=== PATIENT | female | born 1940 | race Caucasian/White ===

== ENCOUNTER 2016-09-09 15:48 | Inpatient (IN) ==
[2016-09-09] MEDS ORDERED: predniSONE 20 MG TABLET PO ONE (15:58)
[2016-09-09] MEDS ORDERED: 0.9 % Sodium Chloride 1,000 ML IVC ONE ×2 (15:58→17:51)
[2016-09-09] MEDS ORDERED: Ipratropium/Albuterol Neb 3 ML IH ONE (15:58)
--- NOTE | 2016-09-09 15:58 | Emergency Department Note ---
Disposition Clinical Impression: CHLOE (acute kidney injury), Dehydration, COPD exacerbation Hypotension Qualifiers: Hypotension type: other hypotension type Qualified Code(s): I95.89 - Other hypotension Syncope Qualifiers: Syncope type: unspecified Qualified Code(s): R55 - Syncope and collapse Disposition: Admitted As Inpatient Condition: Fair Time of Disposition: 18:27 General Adult HPI - General Chief complaint: ED Shortness of Breath/Dyspnea Stated complaint: difficulty in breathing and BM in pants Time Seen by Provider: 09/09/16 15:51 Source: patient, EMS Mode of arrival: EMS Limitations: no limitations Nursing Notes Reviewed: Yes Vital Signs Reviewed: Yes - History of Present Illness HPI Narrative: 76-year-old female with a history of hypertension, hyperlipidemia, COPD presents to the ED via EMS for shortness of breath and lightheadedness. EMS reports she was sent here with concerns of her family for dehydration and syncope. Patient reports over last 4 days she has been increasingly more short of breath with a cough. She reports she has been without her inhalers for several weeks now. She denies any fevers, rhinorrhea, or chest pain. She reports an episode of lightheadedness that occurred earlier today while sitting at the dining table with her daughter she was lightheaded and felt like passing out while sitting. She notified her daughter that she felt like passing out. She reportedly passed out and had a bowel movement. No obvious signs of trauma, head contusion, or tongue laceration. She is unsure of how long she was out for but this was witnessed by her daughter who is unfortunately not at bedside at this time. She denies hitting her head, any headache, any shortness of breath or chest pain prior to this. Denies any history of seizures. Denies any cardiac ischemic disease. She reports multiple episodes of diarrhea over the past several days as well as decreased appetite. Patient lives at home with daughter and reports no one else with similar symptoms. Recent stress test was negative last year she reports. Denies any history of congestive heart failure. Denies any recent hospitalizations or antibiotics. Denies any recent long-distance travel or camping. Denies any urinary symptoms. She is a pack per day smoker and stopped 2 days ago she reports. Pain Scale: 0 - Related Data Home Medications Medication Instructions Recorded Confirmed Aspirin 81 mg PO DAILY 02/08/15 09/09/16 Atorvastatin [Lipitor] 10 mg PO HS 02/08/15 09/09/16 Docusate [Colace] 100 mg PO DAILY PRN 02/08/15 09/09/16 Nitroglycerin 0.4 mg SL Q5MIN PRN 02/08/15 09/09/16 Budesonide/Formoterol 160/4.5 2 puff IH BIDR 02/11/15 09/09/16 [Symbicort 160/4.5] Citalopram [CeleXA] 20 mg PO DAILY 09/09/16 09/09/16 Diclofenac Sodium [Voltaren] 1 appl TP TID PRN 09/09/16 09/09/16 Gabapentin [Neurontin] 300 mg PO TID 09/09/16 09/09/16 HYDROcodone/Acet 5/325 mg [[place] 1 tab PO Q6H PRN 09/09/16 09/09/16 5-325 mg] HydrOXYzine Pamoate [Vistaril] 50 mg PO Q6H PRN 09/09/16 09/09/16 OLANZapine [Zyprexa] 5 mg PO BID 09/09/16 09/09/16 Previous Rx's Medication Instructions Recorded Lisinopril-HCTZ 10-12.5 [Prinzide 1 each PO DAILY #30 tablet 03/09/16 10-12.5] Albuterol Sulfate [Albuterol 2 puff IH Q4HR PRN #1 hfa.aer.ad 04/17/16 Inhaler] Allergies Allergy/AdvReac Type Severity Reaction Status Date / Time codeine Allergy UNKNOWN Verified 03/29/16 15:48 REACTION Penicillins Allergy UNKNOWN Verified 03/29/16 15:48 REACTION All systems ED: reviewed and negative except as stated. Constitutional: Denies: fever Cardiovascular: Denies: chest pain Respiratory: Reports: cough, dyspnea. Denies: wheezes, hemoptysis Gastrointestinal: Reports: diarrhea. Denies: abdominal pain, nausea, vomiting, melena, hematochezia Genitourinary: Denies: urgency, dysuria Integumentary: Denies: rash, abrasion Neurological: Denies: headache, confusion Past Medical History - Past Medical History Attestation: Yes The following information was validated with the patient. Source: patient Medical history: Reports: COPD, hyperlipidemia, hypertension, other Surgical history: Reports: breast surgery, , cholecystectomy, hip replacement, hysterectomy, knee replacement, other Psychiatric history: Reports: depression - Social History Smoking Status: Current every day smoker Smokeless Tobacco Status: No Alcohol use: Reports: none Drug use: Reports: none Physical Exam - General Limitations: no limitations General appearance: alert, in no apparent distress - Head Head exam: atraumatic, normocephalic, normal inspection - Eye Eye exam: Present: normal appearance, PERRL, EOMI - ENT ENT exam: normal exam, normal oropharynx, mucous membranes dry - Neck Neck exam: Present: normal inspection, full ROM, trachea midline - Chest Chest inspection: Present: normal inspection, symmetric chest wall rise - Respiratory Respiratory exam: Present: wheezes, other (coarse breath sounds bilaterall) - Cardiovascular Cardiovascular exam: Present: regular rate, normal rhythm, normal heart sounds. Absent: systolic murmur, diastolic murmur - Abdominal Exam Abdominal exam: Present: soft, Non-Tender, normal bowel sounds. Absent: tenderness, distention, guarding, rebound, rigidity - Extremities Exam Extremities exam: Present: normal inspection, full ROM, normal capillary refill. Absent: tenderness, pedal edema, calf tenderness - Back Exam Back exam: Present: normal inspection, full ROM. Absent: tenderness - Neurological Exam Neurological exam: Present: alert, oriented X3, CN II-XII intact - Expanded Neurological Exam Patient oriented to: Present: person, place, time Speech: Present: fluid speech Cranial nerves: EOM function (II, III, IV, ): Normal, facial sensation (V): Normal, facial palsy (VII): Normal, gag reflex (IX): Normal, spinal accessory function (XI): Normal, tongue deviation (XII): Normal Motor strength - LUE: 5/5 Motor strength - RUE: 5/5 Motor strength - LLE: 5/5 Motor strength - RLE: 5/5 Upper motor neuron exam: grace neglect: Absent bilaterally, pronator drift: Absent bilaterally Sensory exam upper extremity: light touch: Normal Sensory exam lower extremity: light touch: Normal - Psychiatric Psychiatric exam: Present: normal affect, normal mood - Skin Skin exam: Present: warm, dry, intact, normal color Course Course Narrative: 76-year-old female history of COPD presents to ED for syncope. She reportedly had a syncopal episode while at home. At that time she also had episode fecal incontinence. She has been having multiple episodes of diarrhea for the past several days. Came in for concern of dehydration. She is also reporting some dyspnea and reports being without her inhalers for past several days. Patient is stable and appears in no acute distress. No obvious signs of trauma, no tongue lacerations or head contusion/hematoma. Her blood pressure is 93/77 and HR 70s. She is 91% on room air on arrival. She is alert and oriented to person place and time. Lungs are diffusely wheezing bilaterally. Neurologic examination is normal without any focal neural deficits. She denies any history of cardiac ischemic disease. No history of congestive heart failure. Syncopal workup initiated. Will culture her stool and check a urine as well. EKG shows normal sinus rhythm without any acute ischemic changes. - Reevaluation(s) Reevaluation #1: Labs reviewed and discussed. Her creatinine is elevated 1.6 this is above her baseline but she has been elevated in the past. Her troponin is negative. Blood glucose is over 100. Her initial blood pressure read 93/77. With her 1st fluid bolus her pressures are in the upper 70s to lower 80s. The IV was kinked due to position but with a pressure bag fluids are flowing much better. She denies any recurrence of symptoms at this time such as lightheadedness or chest pain. Her HR remains in the 70s but her labs indicate that she may be intravascularly dehydrated which may explain her symptoms. Her breathing has improved with breathing treatments and steroids. Abdomen is soft nontender and nondistended. C diff is negative. Will get order a 2nd liter of fluids and likely admit for her syncopal episode, hypotension, CHLOE, dehydration with COPD exacerbation. Patient is in agreement with plan. Time: 18:00 Reevaluation #2: Blood pressure remains stable with 2nd liter of fluid BP is 109/57. She is stable for admission to floor. Time: 18:50 - Consultations Consultation #1: Spoke with paula Pryor to admit for hypotension, CHLOE, dehydration, COPD exacerbation, and syncope. Blood pressure has improved with 2nd liter of fluid 106/51. Time: 18:27 Vital Signs Temperature 97.7 F 09/09/16 15:50 Pulse Rate 73 09/09/16 15:50 Respiratory Rate 18 09/09/16 15:50 Blood Pressure 93/77 09/09/16 15:50 O2 Sat by Pulse Oximetry 91 L 09/09/16 15:50 Temperature 97.7 F 09/09/16 15:50 Pulse Rate 70 09/09/16 18:04 Respiratory Rate 18 09/09/16 18:47 Blood Pressure 109/57 09/09/16 18:47 O2 Sat by Pulse Oximetry 99 09/09/16 18:04 Oxygen Delivery Oxygen Delivery Room Air Medical Decision Making - MDM Narrative Medical decision making narrative: I examined this patient and my medical decision-making was reviewed with the SUPERVISOR METALIZING/PA/Advanced Practice Nurse/Resident Physician. I agree with the documented findings, disposition and treatment plan as described except to the extent set forth below. Patient was seen and evaluated on arrival by Dr. samano and myself, I agree with his evaluation and management plan, supervised care the patient's stay. Patient comes in today complaining of dyspnea. She has been out of her medications for COPD. She has also had a bowel movement here. She said she has a little bit of diarrhea and dehydrated. She will get reading treatments, workup, and will send stool for C. difficile. She is in agreement with this plan. Most likely she will need admission. 1800 hrs.: Patient's labs are back. Her blood pressures improved after 2 L of fluid current systolic is 105. Return bring her into the hospital. Hospitalist is in agreement patient is agreeable with plan. - Medical Records Medical records reviewed: Yes I reviewed the patient's medical records. - Lab Data Lab results reviewed: Yes I reviewed the patient's lab results. Result diagrams: 09/09/16 16:30 09/09/16 16:30 Lab Results 09/09/16 09/09/16 09/09/16 Range/Units 16:13 16:30 16:30 WBC 8.9 (4.3-11.1) K/mcL RBC 5.56 H (3.82-4.97) M/mcL Hgb 16.8 H (11.5-15.4) g/dL Hct 50.4 H (35.3-44.9) % MCV 90.6 (83.0-100.0) fL MCH 30.2 (28.0-33.3) pg MCHC 33.3 (31.6-35.5) g/dL RDW 11.9 (11.5-14.5) % Plt Count 182 (140-400) K/mcL MPV 9.6 (9.4-12.4) fL Immature Gran % 0.4 (0-4) % Seg Neutrophils % 62.2 % Lymphocytes % 26.4 % Monocytes % 8.8 % Eosinophils % 1.6 % Basophils % 0.6 % Neutrophils # 5.6 (1.6-8.9) K/mcL Lymphocytes # 2.4 (0.6-4.6) K/mcL Monocytes # 0.8 (0.0-1.3) K/mcL Eosinophils # 0.1 (0.0-0.6) K/mcL Basophils # 0.1 (0.0-0.2) K/mcL Sodium 140 (136-145) mEq/L Potassium 4.1 (3.5-4.5) mEq/L Chloride 104 (98-109) mEq/L Carbon Dioxide 22 (19-29) mEq/L BUN 25 H (7-20) mg/dL Creatinine 1.64 H (0.57-1.11) mg/dL Est GFR ( Amer) 37 L (> 60) Est GFR (Non-Af Amer) 31 L (> 60) BUN/Creatinine Ratio 15 (6-26) Glucose 109 H (70-99) mg/dL Calculated Osmolality 295 (280-300) Calcium 9.2 (8.6-10.8) mg/dL Troponin I (0-0.03) ng/mL B-Natriuretic Peptide (0-100) pg/mL Stl C. diff Tox B Gene Negative (Negative) 09/09/16 09/09/16 Range/Units 16:30 16:30 WBC (4.3-11.1) K/mcL RBC (3.82-4.97) M/mcL Hgb (11.5-15.4) g/dL Hct (35.3-44.9) % MCV (83.0-100.0) fL MCH (28.0-33.3) pg MCHC (31.6-35.5) g/dL RDW (11.5-14.5) % Plt Count (140-400) K/mcL MPV (9.4-12.4) fL Immature Gran % (0-4) % Seg Neutrophils % % Lymphocytes % % Monocytes % % Eosinophils % % Basophils % % Neutrophils # (1.6-8.9) K/mcL Lymphocytes # (0.6-4.6) K/mcL Monocytes # (0.0-1.3) K/mcL Eosinophils # (0.0-0.6) K/mcL Basophils # (0.0-0.2) K/mcL Sodium (136-145) mEq/L Potassium (3.5-4.5) mEq/L Chloride (98-109) mEq/L Carbon Dioxide (19-29) mEq/L BUN (7-20) mg/dL Creatinine (0.57-1.11) mg/dL Est GFR ( Amer) (> 60) Est GFR (Non-Af Amer) (> 60) BUN/Creatinine Ratio (6-26) Glucose (70-99) mg/dL Calculated Osmolality (280-300) Calcium (8.6-10.8) mg/dL Troponin I 0.01 (0-0.03) ng/mL B-Natriuretic Peptide < 10 (0-100) pg/mL Stl C. diff Tox B Gene (Negative) - Radiology Data Radiology results reviewed: Yes I reviewed the patient's radiology results. Chest X-Ray 09/09/16 15:58 IMPRESSION: Stable chest. D/ / Javy Florez MD / Javy Florez MD Interpreting Provider: Javy Florez MD - EKG Data EKG #1 EKG attestation: Yes I reviewed and interpreted this EKG. EKG results narrative: EKG performed 1553 normal sinus rhythm 66 bpm, poor R-R wave progression, normal axis, there are no ST elevations or depressions, no T-wave inversions. Intervals are within normal limits [place] interval 191 QRS 90 QT QTC 386 399. No delta wave, LVH, or B[place] pattern, Compared to old EKG performed 07/08/2016 shows normal sinus rhythm with similar EKG findings. No acute ischemic changes.
[2016-09-09 16:41] LABS: Basophils # 0.1 K/mcL (0.0-0.2); Basophils % 0.6 %; Eosinophils # 0.1 K/mcL (0.0-0.6); Eosinophils % 1.6 %; Hematocrit 50.4 % (35.3-44.9); Hemoglobin 16.8 g/dL (11.5-15.4); Immature Granulocytes % 0.4 % (0-4); Lymphocytes # 2.4 K/mcL (0.6-4.6); Lymphocytes % 26.4 %; Mean Corpuscular HGB Conc 33.3 g/dL (31.6-35.5); Mean Corpuscular Hemoglobin 30.2 pg (28.0-33.3); Mean Corpuscular Volume 90.6 fL (83.0-100.0); Mean Platelet Volume 9.6 fL (9.4-12.4); Monocytes # 0.8 K/mcL (0.0-1.3); Monocytes % 8.8 %; Neutrophils # 5.6 K/mcL (1.6-8.9); Platelet Count 182 K/mcL (140-400); Red Blood Count 5.56 M/mcL (3.82-4.97); Red Cell Distribution Width 11.9 % (11.5-14.5); Segmented Neutrophils % 62.2 %
[2016-09-09 16:53] LABS: Calcium 9.2 mg/dL (8.6-10.8); Potassium 4.1 mEq/L (3.5-4.5)
--- NOTE | 2016-09-09 21:37 | Internal Med History&Physical ---
<Shahram Aparicio - Last Filed: 09/10/16 02:24> Date of Encounter: 09/09/16 Time of Encounter: 21:20 Assessment and Plan (1) COPD (chronic obstructive pulmonary disease) Current visit: No Status: Chronic Patient has history of COPD, chest x-ray shows streaky opacification left lower lobe, without acute process. Suspicious for intrathoracic process that might be more evident after fluid repletion. Rales and rhonchi with diffuse wheezing auscultated on exam. 40 mg by mouth prednisone Scheduled to home when necessary albuterol Patient on empiric Levaquin Obtain sputum culture Continue home Symbicort We will obtain chest x-ray in the morning Urine and shins for Streptococcus pneumoniae and legionella Qualifiers: COPD type: unspecified COPD Qualified Code(s): J44.9 - Chronic obstructive pulmonary disease, unspecified (2) Urinary tract infection Current visit: No Status: Suspected Suspect patient has urinary tract infection given patient's prior history of identical symptoms after having pansensitive Escherichia coli UTI. Bilateral carotids performed in 02/03 showed minimal stenotic plaque, echo performed 02/03 showed EF of 65-70% with mild left ventricular diastolic dysfunction. We will obtain urinalysis with urine culture We will obtain CT head/brain without contrast Previous cultures pansensitive Escherichia coli, will start Levaquin Qualifiers: Urinary tract infection type: site unspecified Hematuria presence: without hematuria Qualified Code(s): N39.0 - Urinary tract infection, site not specified (3) Syncope Current visit: No Status: Acute Patient had a witnessed syncopal event at home earlier today. Patient reports is that occurred after several days of not taking much oral intake. Prior documented episodes of syncope with hospitalization last February due to similar events. He was due to UTI causing weakness, anorexia, dehydration. Suspect this is the root of current episode. Plan as above Qualifiers: Syncope type: unspecified Qualified Code(s): R55 - Syncope and collapse (4) Acute kidney injury Current visit: No Status: Acute Patient acute kidney injury likely due to dehydration and anorexia, reportedly for several days prior to presentation. Patient received 3 L normal saline in the ER Plan as above (5) Hypotension Current visit: Yes Status: Acute Likely secondary to patient anorexia and dehydration. Resolved after 3 L bolus normal saline. Plan as above Review vitals regularly Qualifiers: Hypotension type: other hypotension type Qualified Code(s): I95.89 - Other hypotension (6) Dehydration Current visit: No Status: Acute Due to decreased by mouth intake over the last few days Plan as above (7) DVT prophylaxis Current visit: No Status: Acute 5000 units heparin subcutaneous 3 times a day Internal Medicine - H&P: HPI Chief complaint: Syncope and anorexia Admitted From: Home Plans for Post Hospital Care: Home History of present illness: Ms. Cobos is a 76 year old female prior medical history of hypertension, hyperlipidemia, COPD, chronic delusional psychosis, diastolic dysfunction, and osteoarthritis who was brought to [place] by her family after having a witnessed syncopal event earlier today. She states she was sitting at the table when her syncopal event occurred. It was witnessed by her daughter, who is not present for the conversation, but the patient denies seizure-like activity at that time as well as post ictal state. She reports that for last 4 days she has had increased shortness of breath and nonproductive cough. In the same time. She reports that she has some diarrhea, anorexia, lightheadedness, chills, weakness , reports she has had increased urination, but denies dysuria, denies hematuria , reports some nausea without vomiting, and diarrhea. She denies constipation, wheezing, and vomiting. A presentation to the emergency room she is found to have acute kidney injury with serum creatinine 1.64 as well as hypotension in the 80s over 60s. She was given 3 L normal saline prior to reaching the floor. Review of patient's chart she has had similar episode documented in 03/06. In which she had a UTI, syncopal event, Hypotension, and AK I. Past Med Surg Social Fam HX - Past Medical History Medical history: COPD, hyperlipidemia, hypertension, other Psychiatric history: depression - Past Surgical History Surgical History: breast surgery, , cholecystectomy, hip replacement, hysterectomy, knee replacement, other - Social History Smoking Status: Current every day smoker Smokeless Tobacco Status: No Alcohol use: none Drug use: none - Family History Mother Name: adan negrete Age: 78 Living Status: Hx Family Cardiac Disorders: No Hx Family Respiratory Disorders: Yes Hx Family Cancer: No Hx Family GI Disorders: No Hx Family Endocrine Disorder: No Hx Family Neuromuscular Disorders: No Hx Family Neurologic Disorders: No Hx Family HEENT Disorders: No Hx Family Autoimmune Disorders: No Internal Medicine - H&P: Meds Aspirin 81 mg PO DAILY 02/08/15 [History] Atorvastatin [Lipitor] 10 mg PO HS 02/08/15 [History] Docusate [Colace] 100 mg PO DAILY PRN 02/08/15 [History] Nitroglycerin 0.4 mg SL Q5MIN PRN 02/08/15 [History] Budesonide/Formoterol 160/4.5 [Symbicort 160/4.5] 2 puff IH BIDR 02/11/15 [ History] Lisinopril-HCTZ 10-12.5 [Prinzide 10-12.5] 1 each PO DAILY #30 tablet 03/09/16 [ Rx] Albuterol Sulfate [Albuterol Inhaler] 2 puff IH Q4HR PRN #1 hfa.aer.ad 04/17/16 [Rx] Citalopram [CeleXA] 20 mg PO DAILY 09/09/16 [History] Diclofenac Sodium [Voltaren] 1 appl TP TID PRN 09/09/16 [History] Gabapentin [Neurontin] 300 mg PO TID 09/09/16 [History] HYDROcodone/Acet 5/325 mg [[place] 5-325 mg] 1 tab PO Q6H PRN 09/09/16 [History] HydrOXYzine Pamoate [Vistaril] 50 mg PO Q6H PRN 09/09/16 [History] OLANZapine [Zyprexa] 5 mg PO BID 09/09/16 [History] Allergies codeine Allergy (Verified 03/29/16 15:48) UNKNOWN REACTION Penicillins Allergy (Verified 03/29/16 15:48) UNKNOWN REACTION - Constitutional Constitutional: anorexia, chills, weakness, no fever(s), no falls - EENT Eyes: no change in vision, no discharge, no pain, no photophobia Nose, mouth and throat: no dysphagia, no nasal discharge, no neck pain, no sore throat - Cardiovascular Cardiovascular ROS IM: no chest pain, no diaphoresis, no dyspnea, no lightheadedness, no palpitations, no syncope - Respiratory Respiratory: as per HPI, cough, dyspnea, no wheezing, no pain on inspiration, no excessive phlegm production, no change in phlegm color, no pain with cough - Gastrointestinal Gastrointestinal: diarrhea, no abdominal pain, no constipation, no hematemesis, no hematochezia, no melena, no nausea, no vomiting - Genitourinary Genitourinary: urinary frequency, no change in urinary stream, no dysuria, no flank pain, no hematuria - Musculoskeletal Musculoskeletal ROS IM: no numbness, no tingling - Integumentary Integumentary IM: no rash, no jaundice - Neurological Neurological ROS: headache(s), weakness, no confusion, no convulsions, no focal weakness, no numbness, no tingling, no tremor(s) - Constitutional Vitals: Temp Pulse Resp BP Pulse Ox 98.4 F 75 14 118/56 98 09/09/16 19:39 09/09/16 20:46 09/09/16 20:46 09/09/16 19:39 09/09/16 20:46 Exam: General: Cooperative, pleasant, no acute distress, alert and oriented 2 ( person and place), answers questions appropriately Head: Normocephalic, atraumatic Eye: Conjunctiva pink, sclera anicteric, EOMI, PERRL Neck: Supple, trachea midline Respiratory: No accessory muscle usage, bilateral wheezes, bilateral rails L>R, rhonchi in left lower lobe Cardiovascular: Regular rate and rhythm, S1 and S2 present, no murmurs/rubs/ gallops/clicks appreciated GI/abdominal: Nondistended, nontender, soft, normal bowel sounds, no peritoneal signs Extremities: No calf tenderness, noncyanotic, no pedal edema appreciated, warm, lower extremity pulses palpable and symmetrical Neurological: Alert and oriented 2 (person and place), no facial droop, no focal deficits Skin: Dry, intact, normal color Internal Med - H&P Results - Labs CBC & Chem 7: 09/09/16 16:30 09/09/16 16:30 <Ranulfo Loco - Last Filed: 09/10/16 02:30> Internal Medicine - H&P: HPI History of present illness: Ms. Cobos is a 76 year old female All Systems PM: A 10-system review of systems was performed and is negative for pertinent findings except as documented above in the HPI. - Constitutional Vitals: Temp Pulse Resp BP Pulse Ox 98.3 F 75 16 122/68 96 09/10/16 00:08 09/10/16 00:08 09/10/16 00:08 09/10/16 00:08 09/10/16 00:08 Internal Med - H&P Results - Labs CBC & Chem 7: 09/09/16 16:30 09/09/16 16:30 - Attending Attestation I examined this patient and my medical decision-making was reviewed with the PROCESS PLANNER/PA/Advanced Practice Nurse/Resident Physician. I agree with the documented findings, disposition and treatment plan as described except to the extent set forth below. I discussed the patient with the medical planner Dr. Shahram Aparicio. I examined the patient independently. I agree with the physical examination findings, assessment and plan as documented by Dr. Aparicio. Free, patient with COPD admitted with syncopal episode. Likely secondary to dehydration. Possible UTI. Continue current management, telemetry monitoring.
[2016-09-09] MEDS ORDERED: Naloxone 0.4 MG/ML INJ IVP PRN (21:42)
[2016-09-09] MEDS ORDERED: Acetaminophen 325 MG TABLET PO PRN (21:42)
[2016-09-09] MEDS ORDERED: Nicotine 14 MG PATCH.TD24 TD PRN (21:42)
[2016-09-09] MEDS ORDERED: Ondansetron 4 MG/2 ML VIAL IVP PRN (21:42)
[2016-09-09] MEDS ORDERED: hydrOXYzine pamoate 25 MG CAPSULE PO PRN (21:50)
[2016-09-09] MEDS ORDERED: *HR* HYDROcodone/Acet 5/325 mg TABLET PO PRN (21:50)
[2016-09-09] MEDS ORDERED: Nitroglycerin 0.4 MG TAB.SUBL SL PRN (21:50)
[2016-09-09] MEDS ORDERED: Levofloxacin 500 MG/100 ML 500 MG/100 ML BAG IVPB SCH (22:00)
[2016-09-09] MEDS: *HR* Heparin 5,000 UNIT/ML VIAL SQ SCH (22:43)
[2016-09-09] MEDS: 0.9 % Sodium Chloride 1,000 ML IVC SCH (22:43)
[2016-09-09] MEDS: Ipratropium/Albuterol Neb 3 ML IH SCH (23:35)
[2016-09-09] MEDS: Budesonide/Formoterol 160/4.5 MDI IH SCH (23:37)
[2016-09-10 02:42] LABS: Bilirubin,Urine Negative (Negative); Blood,Urine Negative (Negative); Clarity,Urine Clear (Clear); Color,Urine Yellow (Yellow); Glucose,Urine (UA) 250 mg/dL (Normal); Ketones,Urine Negative (Negative); Leukocyte Esterase,Urine Trace (Negative); Nitrite,Urine Positive (Negative); PH,Urine 5.5 pH Units (5.0-8.0); Protein,Urine Trace mg/dL (Neg-Trace); Urobilinogen,Urine Normal (Normal)
[2016-09-10 02:46] LABS: Bacteria,Urine Moderate per hpf (None-Few); Hyaline Casts,Urine None Seen per lpf (None-Few); Squamous Epithelial Cell,Urine Many per lpf (None-Few); WBC,Urine 0-3 per hpf (0-3)
[2016-09-10] MEDS: Ipratropium/Albuterol Neb 3 ML IH SCH ×4 (04:19→23:00)
[2016-09-10] MEDS: *HR* Heparin 5,000 UNIT/ML VIAL SQ SCH ×3 (06:15→22:39)
[2016-09-10 06:17] LABS: Basophils % 0.2 %; Hemoglobin 15.6 g/dL (11.5-15.4); Immature Granulocytes % 1.2 % (0-4); Lymphocytes # 0.9 K/mcL (0.6-4.6); Lymphocytes % 13.9 %; Mean Corpuscular HGB Conc 32.5 g/dL (31.6-35.5); Mean Corpuscular Hemoglobin 29.7 pg (28.0-33.3); Mean Corpuscular Volume 91.4 fL (83.0-100.0); Mean Platelet Volume 9.9 fL (9.4-12.4); Monocytes # 0.3 K/mcL (0.0-1.3); Monocytes % 4.7 %; Neutrophils # 5.1 K/mcL (1.6-8.9); Platelet Count 147 K/mcL (140-400); Red Blood Count 5.25 M/mcL (3.82-4.97); Red Cell Distribution Width 11.8 % (11.5-14.5)
[2016-09-10 06:37] LABS: Albumin/Globulin Ratio 0.9 (1.1-2.2); Bilirubin,Total 0.6 mg/dL (0.2-1.2); Calcium 8.4 mg/dL (8.6-10.8); Globulin 3.4 g/dL (2.4-3.5); Magnesium 1.6 mg/dL (1.6-2.6); Phosphorous 2.9 mg/dL (2.3-4.7); Potassium 4.3 mEq/L (3.5-4.5); Total Protein 6.4 g/dL (6.0-8.3)
[2016-09-10] MEDS: Aspirin 81 MG TAB.CHEW PO SCH (09:08)
[2016-09-10] MEDS: OLANZapine 5 MG TAB.RAPDIS PO SCH ×2 (09:08→22:39)
[2016-09-10] MEDS: predniSONE 20 MG TABLET PO SCH (09:08)
[2016-09-10] MEDS: Pantoprazole 40 MG VIAL IVP SCH (09:08)
[2016-09-10] MEDS: Budesonide/Formoterol 160/4.5 MDI IH SCH ×2 (11:41→23:00)
[2016-09-10] MEDS: 0.9 % Sodium Chloride 1,000 ML IVC SCH (14:20)
[2016-09-10] MEDS: Gabapentin 300 MG CAPSULE PO SCH ×2 (14:20→22:40)
--- NOTE | 2016-09-10 17:22 | Electrocardiograph Report ---
[address] [address] Test Date: 2016-09-09 Pat Name: Miracle Cobos Department: 104 Room: 2N04 Gender: F [employer] Machine: BETH : [id number] Requested By: Lan Villalpando Order Number: [id number] Reading MD: Matt Gallo MD Measurements Intervals [place] Rate: 66 P: 66 ID: [id number] QRS: 87 QRSD: 90 T: 63 QT: 386 QTc: 399 Interpretive Statements SINUS RHYTHM Electronically Signed On 09-10-2016 17:20:43 EDT by Matt Gallo MD
--- NOTE | 2016-09-10 18:20 | Internal Med Progress Note ---
Date of Encounter: 09/10/16 Time of Encounter: 21:17 - Assessment and plan (1) CHLOE (acute kidney injury) Current Visit: Yes Status: Acute (2) DVT prophylaxis Current Visit: No Status: Acute (3) COPD (chronic obstructive pulmonary disease) Current Visit: No Status: Chronic Qualifiers: COPD type: unspecified COPD Qualified Code(s): J44.9 - Chronic obstructive pulmonary disease, unspecified (4) HTN (hypertension) Current Visit: No Status: Chronic Qualifiers: Hypertension type: essential hypertension Qualified Code(s): I10 - Essential (primary) hypertension (5) Hyperlipemia Current Visit: No Status: Chronic Qualifiers: Hyperlipidemia type: mixed hyperlipidemia Qualified Code(s): E78.2 - Mixed hyperlipidemia (6) Urinary tract infection Current Visit: No Status: Suspected Assessment and plan: 76 year old femlae with pmh of HTN, HLD, COPD, diastolicn dysfunction, admitted to the hospital following a witnessed syncopal event. Patient was found to be hypotensive on admission with systolic in 80s # Near SYncopal episode: In setting of hypotension, dehydration which has currently improved with IV fluids. # Hypotension: In setting of dehydration, which has currently resolved. # UTI: UA positive on admisison, c/s grew Gram negative bacteria pending final c /s. On abx tx. Was started on levaquin on admission based on sensitivity from preious c/s ( and given respiratory symptoms on admission) will deescalate based on sensitivities. # CHLOE: Prerenal in setting of dehydration, improved with IV fluids # COPD with acute exacerbation: CXR negative for any e/o pneumonia. On bronchodilators. Urine for strep adn legionealla negative. On Levaqui as above # h/o HTN: antihypertensives remains on hold. restart as tolearted # HLD: continue statins # h/o delusional psychosis: continue home meds # DVT Prophylaxis: Sub Q heparin Qualifiers: Urinary tract infection type: site unspecified Hematuria presence: without hematuria Qualified Code(s): N39.0 - Urinary tract infection, site not specified - Time Spent With Patient 25 - 35 minutes - Subjective Interval history: seen and examined at bedside. Reports feeling better. No further syncopal episodes since admission - Constitutional Vitals: Temp Pulse Resp BP Pulse Ox 98.3 F 73 17 134/70 92 L 09/10/16 16:32 09/10/16 16:32 09/10/16 16:32 09/10/16 16:32 09/10/16 16:32 - Head Head exam: Present: atraumatic, normocephalic - Eye Eye exam: Present: PERRL, conjuntiva pink, sclera anicteric Pupils: Present: PERRL - Neck Neck exam general surgery: Present: supple, trachea midline. Absent: lymphadenopathy - Respiratory Respiratory exam: Present: CTAB. Absent: accessory muscle use, rales, rhonchi, wheezes - Cardiovascular Cardiovascular exam: Present: RRR, +S1, +S2. Absent: diastolic murmur, gallop, rubs, systolic murmur - GI/Abdominal GI/Abdominal exam: Present: normal bowel sounds, soft, no peritoneal signs. Absent: distended, tenderness - Extremities Exam Extremities exam: Present: warm, radial pulses palpable and symetrical. Absent : calf tenderness, cyanotic, pedal edema - Neurological Exam Neurological exam: Present: CN II-XII intact, oriented X3, no focal deficits. Absent: pronater drift, facial droop, speech deficit - Skin Skin exam: Present: dry, intact Internal Medicine: Result - Labs CBC & Chem 7: 09/11/16 04:58 09/11/16 04:58 Labs: Short CBC 09/10/16 Range/Units 05:47 WBC 6.4 (4.3-11.1) K/mcL Hgb 15.6 H (11.5-15.4) g/dL Hct 48.0 H (35.3-44.9) % Plt Count 147 (140-400) K/mcL Neutrophils # 5.1 (1.6-8.9) K/mcL BMP 09/10/16 05:47 Sodium 139 Potassium 4.3 Chloride 108 Carbon Dioxide 20 BUN 26 H Creatinine 1.16 H Glucose 167 H Calcium 8.4 L Liver Function 09/10/16 Range/Units 05:47 Total Bilirubin 0.6 (0.2-1.2) mg/dL AST 18 (5-34) Units/L ALT 21 (0-55) Units/L Alkaline Phosphatase 108 (38-126) Units/L Albumin 3.0 L (3.5-5.0) g/dL - Impressions Impressions Chest X-Ray 09/10/16 05:00 IMPRESSION: Clear lungs. D/ / Burak Matthews MD / Burak Matthews MD Interpreting Provider: Burak Matthews MD Head CT 09/10/16 07:30 IMPRESSION: 1. No acute intracranial abnormality. 2. Mild chronic microvascular ischemic change. 3. Minimal scattered atherosclerosis. 4. Trace left mastoid effusion. D/ / Tristian Jovel MD / Tristian Jovel MD Interpreting Provider: Tristian Jovel MD Consult Discharge Plan - Plan Referrals: Low Olmstead DO [Primary Care Provider] -
[2016-09-10] MEDS: Levofloxacin 250 MG/50 ML 250 MG/50 ML BAG IVPB SCH (22:37)
[2016-09-11] MEDS: 0.9 % Sodium Chloride 1,000 ML IVC SCH (03:48)
[2016-09-11] MEDS: Ipratropium/Albuterol Neb 3 ML IH SCH ×4 (03:48→22:30)
[2016-09-11 05:20] LABS: Basophils % 0.2 %; Hemoglobin 14.2 g/dL (11.5-15.4); Immature Granulocytes % 0.5 % (0-4); Lymphocytes # 1.9 K/mcL (0.6-4.6); Lymphocytes % 18.5 %; Mean Corpuscular HGB Conc 32.3 g/dL (31.6-35.5); Mean Corpuscular Hemoglobin 29.6 pg (28.0-33.3); Mean Corpuscular Volume 91.7 fL (83.0-100.0); Mean Platelet Volume 10.2 fL (9.4-12.4); Monocytes # 0.8 K/mcL (0.0-1.3); Monocytes % 7.6 %; Platelet Count 155 K/mcL (140-400); Red Cell Distribution Width 11.9 % (11.5-14.5); Segmented Neutrophils % 73.2 %
[2016-09-11 05:21] LABS: Neutrophils # 7.5 K/mcL (1.6-8.9)
[2016-09-11 05:36] LABS: BUN/Creatinine Ratio 25 (6-26); Blood Urea Nitrogen 25 mg/dL (7-20); Calcium 8.9 mg/dL (8.6-10.8); Carbon Dioxide 18 mEq/L (19-29); Chloride 114 mEq/L (98-109); Glucose 121 mg/dL (70-99); Osmolality,Calculated 298 (280-300); Sodium 141 mEq/L (136-145); eGFR For African Americans > 60 (> 60); eGFR For Non-African Americans 55 (> 60)
[2016-09-11] MEDS: *HR* Heparin 5,000 UNIT/ML VIAL SQ SCH ×3 (06:00→21:40)
[2016-09-11] MEDS: Pantoprazole 40 MG VIAL IVP SCH (07:57)
[2016-09-11] MEDS: Aspirin 81 MG TAB.CHEW PO SCH (08:25)
[2016-09-11] MEDS: Gabapentin 300 MG CAPSULE PO SCH ×3 (08:25→21:40)
[2016-09-11] MEDS: OLANZapine 5 MG TAB.RAPDIS PO SCH ×2 (08:25→21:40)
[2016-09-11] MEDS: predniSONE 20 MG TABLET PO SCH (08:27)
[2016-09-11] MEDS: Budesonide/Formoterol 160/4.5 MDI IH SCH ×2 (10:29→22:30)
--- NOTE | 2016-09-11 16:29 | Internal Med Progress Note ---
Date of Encounter: 09/11/16 Time of Encounter: 16:27 - Assessment and plan (1) CHLOE (acute kidney injury) Current Visit: Yes Status: Acute (2) DVT prophylaxis Current Visit: No Status: Acute (3) COPD (chronic obstructive pulmonary disease) Current Visit: No Status: Chronic Qualifiers: COPD type: unspecified COPD Qualified Code(s): J44.9 - Chronic obstructive pulmonary disease, unspecified (4) HTN (hypertension) Current Visit: No Status: Chronic Qualifiers: Hypertension type: essential hypertension Qualified Code(s): I10 - Essential (primary) hypertension (5) Hyperlipemia Current Visit: No Status: Chronic Qualifiers: Hyperlipidemia type: mixed hyperlipidemia Qualified Code(s): E78.2 - Mixed hyperlipidemia (6) Urinary tract infection Current Visit: No Status: Suspected Assessment and plan: 76 year old femlae with pmh of HTN, HLD, COPD, diastolicn dysfunction, admitted to the hospital following a witnessed syncopal event. Patient was found to be hypotensive on admission with systolic in 80s # Near SYncopal episode: In setting of hypotension, dehydration which has currently improved with IV fluids. No further episodes since admission # Hypotension: In setting of dehydration, which has currently resolved. # UTI: UA positive on admisison, c/s grew Gram negative bacteria pending final c /s. On abx tx. Was started on levaquin on admission based on sensitivity from preious c/s ( and given respiratory symptoms on admission) will deescalate based on sensitivities. # CHLOE: Prerenal in setting of dehydration, improved with IV fluids # COPD with acute exacerbation: CXR negative for any e/o pneumonia. On bronchodilators. Urine for strep and legionealla negative. On Levaquin as above # h/o HTN: antihypertensives remains on hold. restart as tolerated # HLD: continue statins # h/o delusional psychosis: continue home meds # DVT Prophylaxis: Sub Q heparin Qualifiers: Urinary tract infection type: site unspecified Hematuria presence: without hematuria Qualified Code(s): N39.0 - Urinary tract infection, site not specified - Time Spent With Patient 25 - 35 minutes - Subjective Interval history: seen and examined at bedside. Reports feeling better. SOB improved. No further syncopal episodes since admission - Constitutional Vitals: Temp Pulse Resp BP Pulse Ox 97.9 F 86 18 146/86 96 09/11/16 15:52 09/11/16 15:52 09/11/16 15:52 09/11/16 15:52 09/11/16 15:52 - Eye Eye exam: Present: PERRL, conjuntiva pink, sclera anicteric Pupils: Present: PERRL - Neck Neck exam general surgery: Present: supple, trachea midline. Absent: lymphadenopathy - Respiratory Respiratory exam: Present: CTAB. Absent: accessory muscle use, rales, rhonchi, wheezes - Cardiovascular Cardiovascular exam: Present: RRR, +S1, +S2. Absent: diastolic murmur, gallop, rubs, systolic murmur - GI/Abdominal GI/Abdominal exam: Present: normal bowel sounds, soft, no peritoneal signs. Absent: distended, tenderness - Extremities Exam Extremities exam: Present: warm, radial pulses palpable and symetrical. Absent : calf tenderness, cyanotic, pedal edema - Neurological Exam Neurological exam: Present: CN II-XII intact, oriented X3, no focal deficits. Absent: pronater drift, facial droop, speech deficit - Skin Skin exam: Present: dry, intact Internal Medicine: Result - Labs CBC & Chem 7: 09/11/16 04:58 09/11/16 04:58 Labs: Short CBC 09/11/16 Range/Units 04:58 WBC 10.3 D (4.3-11.1) K/mcL Hgb 14.2 (11.5-15.4) g/dL Hct 44.0 (35.3-44.9) % Plt Count 155 (140-400) K/mcL Neutrophils # 7.5 (1.6-8.9) K/mcL BMP 09/11/16 04:58 Sodium 141 Potassium 4.0 Chloride 114 H Carbon Dioxide 18 L BUN 25 H Creatinine 0.99 Glucose 121 H Calcium 8.9 - Impressions Impressions Chest X-Ray 09/10/16 05:00 IMPRESSION: Clear lungs. D/ / Burak Matthews MD / Burak Matthews MD Interpreting Provider: Burak Matthews MD Head CT 09/10/16 07:30 IMPRESSION: 1. No acute intracranial abnormality. 2. Mild chronic microvascular ischemic change. 3. Minimal scattered atherosclerosis. 4. Trace left mastoid effusion. D/ / Tristian Jovel MD / Tristian Jovel MD Interpreting Provider: Tristian Jovel MD Consult Discharge Plan - Plan Referrals: Low Olmstead DO [Primary Care Provider] -
[2016-09-11] MEDS: Levofloxacin 250 MG/50 ML 250 MG/50 ML BAG IVPB SCH (21:40)
[2016-09-12] MEDS: 0.9 % Sodium Chloride 1,000 ML IVC SCH ×2 (05:01→05:03)
[2016-09-12] MEDS: *HR* Heparin 5,000 UNIT/ML VIAL SQ SCH (05:01)
[2016-09-12] MEDS: Ipratropium/Albuterol Neb 3 ML IH SCH ×3 (05:13→15:54)
[2016-09-12 06:15] LABS: Basophils % 0.2 %; Eosinophils % 0.1 %; Hematocrit 39.6 % (35.3-44.9); Hemoglobin 13.3 g/dL (11.5-15.4); Immature Granulocytes % 0.5 % (0-4); Mean Corpuscular HGB Conc 33.6 g/dL (31.6-35.5); Mean Corpuscular Hemoglobin 30.2 pg (28.0-33.3); Mean Platelet Volume 11.2 fL (9.4-12.4); Monocytes # 0.8 K/mcL (0.0-1.3); Monocytes % 7.6 %; Neutrophils # 7.4 K/mcL (1.6-8.9); Platelet Count 180 K/mcL (140-400); Segmented Neutrophils % 72.6 %
[2016-09-12 06:33] LABS: BUN/Creatinine Ratio 30 (6-26); Blood Urea Nitrogen 27 mg/dL (7-20); Calcium 8.9 mg/dL (8.6-10.8); Carbon Dioxide 22 mEq/L (19-29); Chloride 111 mEq/L (98-109); Glucose 93 mg/dL (70-99); Osmolality,Calculated 297 (280-300); Sodium 141 mEq/L (136-145); eGFR For African Americans > 60 (> 60); eGFR For Non-African Americans > 60 (> 60)
[2016-09-12 06:34] LABS: Potassium 4.3 mEq/L (3.5-4.5)
[2016-09-12] MEDS: Aspirin 81 MG TAB.CHEW PO SCH (07:30)
[2016-09-12] MEDS: predniSONE 20 MG TABLET PO SCH (07:30)
[2016-09-12] MEDS: OLANZapine 5 MG TAB.RAPDIS PO SCH (07:30)
[2016-09-12] MEDS: Gabapentin 300 MG CAPSULE PO SCH (07:30)
[2016-09-12] MEDS: Pantoprazole 40 MG VIAL IVP SCH (07:30)
[2016-09-12] MEDS: Budesonide/Formoterol 160/4.5 MDI IH SCH (11:18)
[2016-09-12 12:21] VITALS: BP 123/66
--- NOTE | 2016-09-12 14:33 | Discharge Summary ---
Date of Encounter: 09/12/16 Time of Encounter: 15:22 - Discharge Diagnosis (1) CHLOE (acute kidney injury) Priority: Secondary Status: Acute (2) DVT prophylaxis Priority: Secondary Status: Acute (3) COPD (chronic obstructive pulmonary disease) Priority: Primary Status: Chronic Qualifiers: COPD type: unspecified COPD Qualified Code(s): J44.9 - Chronic obstructive pulmonary disease, unspecified (4) HTN (hypertension) Priority: Secondary Status: Chronic Qualifiers: Hypertension type: essential hypertension Qualified Code(s): I10 - Essential (primary) hypertension (5) Hyperlipemia Priority: Secondary Status: Chronic Qualifiers: Hyperlipidemia type: mixed hyperlipidemia Qualified Code(s): E78.2 - Mixed hyperlipidemia (6) Urinary tract infection Priority: Primary Status: Suspected Qualifiers: Urinary tract infection type: site unspecified Hematuria presence: without hematuria Qualified Code(s): N39.0 - Urinary tract infection, site not specified - Discharge Medications Prescriptions: Ciprofloxacin [Cipro] 500 mg PO BID 5 Days PredniSONE 40 mg PO DAILY 3 Days Home Medications: Aspirin 81 mg PO DAILY 02/08/15 [History] Atorvastatin [Lipitor] 10 mg PO HS 02/08/15 [History] Docusate [Colace] 100 mg PO DAILY PRN 02/08/15 [History] Nitroglycerin 0.4 mg SL Q5MIN PRN 02/08/15 [History] Budesonide/Formoterol 160/4.5 [Symbicort 160/4.5] 2 puff IH BIDR 02/11/15 [ History] Lisinopril-HCTZ 10-12.5 [Prinzide 10-12.5] 1 each PO DAILY #30 tablet 03/09/16 [ Rx] Albuterol Sulfate [Albuterol Inhaler] 2 puff IH Q4HR PRN #1 [id number] 04/17/16 [Rx] Citalopram [CeleXA] 20 mg PO DAILY 09/09/16 [History] Gabapentin [Neurontin] 300 mg PO TID 09/09/16 [History] HydrOXYzine Pamoate [Vistaril] 50 mg PO Q6H PRN 09/09/16 [History] OLANZapine [Zyprexa] 5 mg PO BID 09/09/16 [History] Ciprofloxacin [Cipro] 500 mg PO BID 5 Days 09/12/16 [Rx] PredniSONE 40 mg PO DAILY 3 Days 09/12/16 [Rx] Allergies/Adverse Reactions: Allergies codeine Allergy (Verified 03/29/16 15:48) UNKNOWN REACTION Penicillins Allergy (Verified 03/29/16 15:48) UNKNOWN REACTION Date of admission: 09/10/16 02:45 Primary care physician: Low Olmstead, Discharging clinician: Osiris Sanchez - Patient Status Disposition: Home, Self-Care Condition: Fair Overall status at discharge: patient is back to baseline - Discharge Instructions Instructions: Ciprofloxacin (By mouth), Prednisone (By mouth) Follow Up With: Low Olmstead, DO [Primary Care Provider] - - Diet and Activity Activity: resume usual activities as tolerated Diet: advance to your usual diet Interval History: 76 year old femlae with pmh of HTN, HLD, COPD, diastolicn dysfunction, admitted to the hospital following a witnessed syncopal event. Patient was found to be hypotensive on admission with systolic in 80s. Patient was diagnosed to have UTI , treated with Iv abx. c/s grew e.coli sensitive to ciprofloxacin. Blood c.s negative. Patient discharged home on PO ciprofloxacin to be continued for 5 more days. She was also diagnosed to have acute COPD exacerbation terated with steroids. d/c home on PO steroids for 3 more days. Hypotension has resolved, BP back to baseline and restarted on home dose of meds. Patient clinically better and is dsicharged home. F/u with [facility] in one week. Hemodynamically stable at the time of d/c. Hospital course: Ms. Cobos is a 76 year old female - Time Spent with Patient Total time spent providing and/or coordinating discharge services: Greater than 30 minutes - Constitutional Vitals: Temp Pulse Resp BP Pulse Ox 98.4 F 92 16 123/66 92 L 09/12/16 12:17 09/12/16 12:17 09/12/16 12:17 09/12/16 12:17 09/12/16 12:17 - Head Head exam: Present: atraumatic, normocephalic - Eye Eye exam: Present: PERRL, conjuntiva pink, sclera anicteric Pupils: Present: PERRL - Neck Neck exam general surgery: Present: supple, trachea midline. Absent: lymphadenopathy - Respiratory Respiratory exam: Present: CTAB. Absent: accessory muscle use, rales, rhonchi, wheezes - Cardiovascular Cardiovascular exam: Present: RRR, +S1, +S2. Absent: diastolic murmur, gallop, rubs, systolic murmur - GI/Abdominal GI/Abdominal exam: Present: normal bowel sounds, soft, no peritoneal signs. Absent: distended, tenderness - Extremities Exam Extremities exam: Present: warm, radial pulses palpable and symetrical. Absent : calf tenderness, cyanotic, pedal edema - Neurological Exam Neurological exam: Present: CN II-XII intact, oriented X3, no focal deficits. Absent: pronater drift, facial droop, speech deficit - Skin Skin exam: Present: dry, intact
== END 2016-09-12 16:32 | disposition home or self-care (01) | DRG 690 ==
LOC: EMEROO 15:48 → 2NNU 15:48
PROVIDERS: ADMIT Internal Medicine; ATTEND Internal Medicine Pulmonary Disease

== ENCOUNTER 2017-03-11 14:58 | Observation (INO) ==
[2017-03-11 17:00] LABS: Basophils # 0.1 K/mcL (0.0-0.2); Basophils % 0.6 %; Eosinophils # 0.1 K/mcL (0.0-0.6); Eosinophils % 0.5 %; Hematocrit 48.6 % (35.3-44.9); Hemoglobin 16.2 g/dL (11.5-15.4); Immature Granulocytes % 0.3 % (0-4); Lymphocytes # 1.7 K/mcL (0.6-4.6); Mean Corpuscular HGB Conc 33.3 g/dL (31.6-35.5); Mean Corpuscular Hemoglobin 29.7 pg (28.0-33.3); Mean Platelet Volume 9.4 fL (9.4-12.4); Monocytes # 0.6 K/mcL (0.0-1.3); Monocytes % 5.5 %; Neutrophils # 8.4 K/mcL (1.6-8.9); Platelet Count 226 K/mcL (140-400); Red Blood Count 5.46 M/mcL (3.82-4.97); Red Cell Distribution Width 13.2 % (11.5-14.5); Segmented Neutrophils % 77.1 %
--- NOTE | 2017-03-11 17:03 | Emergency Department Note ---
Disposition Clinical Impression: Chest pain Qualifiers: Chest pain type: unspecified Qualified Code(s): R07.9 - Chest pain, unspecified Dyspnea Qualifiers: Dyspnea type: unspecified Qualified Code(s): R06.00 - Dyspnea, unspecified Disposition: Admitted As Inpatient Condition: Good Referrals: Low Olmstead DO [Primary Care Provider] - Forms: ED Satisfaction Letter General Adult HPI - General Chief complaint: ED Psychiatric Symptoms Stated complaint: Anxiety attack Time Seen by Provider: 03/11/17 16:26 Source: patient Mode of arrival: private vehicle Limitations: no limitations Nursing Notes Reviewed: Yes Vital Signs Reviewed: Yes - History of Present Illness HPI Narrative: 77-year-old female history of anxiety who presents to the ER with a chief complaint of chest pain, dyspnea, headache. Family reports around 3:00 the patient became tearful and felt short of breath. They state that she put her arms around her neck saying she could not breathe. Reports she also started complaining of a headache at that time as well as chest pain. She states she felt lightheaded like she was going to pass out but did not. She reports a prior history of admission for syncope. Also states that she has anxiety and her medications have not been helping. She actually denies any anxiety at this time. Family also noted right lower cavity swelling. No prior history of CAD. Pt Subjective Complaint: Chest pain, shortness of breath, headache Onset (ago): hour(s) Location: chest Radiation: non-radiation Pain Scale: 8 Consistency: Improving Improves with: nothing Worsens with: nothing Associated symptoms: Reports: chest pain, headaches, shortness of breath Treatments Prior to Arrival: none - Related Data Home Medications Medication Instructions Recorded Confirmed Aspirin 81 mg PO DAILY 02/08/15 09/09/16 Atorvastatin [Lipitor] 10 mg PO HS 02/08/15 09/09/16 Docusate [Colace] 100 mg PO DAILY PRN 02/08/15 09/09/16 Nitroglycerin 0.4 mg SL Q5MIN PRN 02/08/15 09/09/16 Budesonide/Formoterol 160/4.5 2 puff IH BIDR 02/11/15 09/09/16 [Symbicort 160/4.5] Citalopram [CeleXA] 20 mg PO DAILY 09/09/16 09/09/16 Gabapentin [Neurontin] 300 mg PO TID 09/09/16 09/09/16 HydrOXYzine Pamoate [Vistaril] 50 mg PO Q6H PRN 09/09/16 09/09/16 OLANZapine [Zyprexa] 5 mg PO BID 09/09/16 09/09/16 Previous Rx's Medication Instructions Recorded Lisinopril-HCTZ 10-12.5 [Prinzide 1 each PO DAILY #30 tablet 03/09/16 10-12.5] Albuterol Sulfate [Albuterol 2 puff IH Q4HR PRN #1 hfa.aer.ad 04/17/16 Inhaler] Ciprofloxacin [Cipro] 500 mg PO BID 5 Days tablet 09/12/16 predniSONE [PredniSONE] 40 mg PO DAILY 3 Days tablet 09/12/16 Allergies Allergy/AdvReac Type Severity Reaction Status Date / Time codeine Allergy UNKNOWN Verified 03/11/17 15:25 REACTION Penicillins Allergy UNKNOWN Verified 03/11/17 15:25 REACTION All systems ED: reviewed and negative except as stated. Constitutional: Denies: fever Cardiovascular: Reports: chest pain Respiratory: Reports: dyspnea. Denies: cough Gastrointestinal: Denies: abdominal pain, nausea, vomiting, diarrhea Neurological: Reports: headache. Denies: numbness, paresthesias Past Medical History - Past Medical History Attestation: Yes The following information was validated with the patient. Source: patient Medical history: Reports: COPD, hyperlipidemia, hypertension, other Surgical history: Reports: breast surgery, , cholecystectomy, hip replacement, hysterectomy, knee replacement, other Psychiatric history: Reports: anxiety, depression - Social History Smoking Status: Current every day smoker Smokeless Tobacco Status: No Alcohol use: Reports: none Drug use: Reports: none Physical Exam - General Limitations: no limitations General appearance: alert, in no apparent distress - Head Head exam: atraumatic, normocephalic, normal inspection - Eye Eye exam: Present: normal appearance, EOMI - ENT ENT exam: normal exam - Neck Neck exam: Present: normal inspection, full ROM - Chest Chest inspection: Present: normal inspection, symmetric chest wall rise - Respiratory Respiratory exam: Present: normal lung sounds bilaterally - Cardiovascular Cardiovascular exam: Present: regular rate, normal rhythm, normal heart sounds - Abdominal Exam Abdominal exam: Present: soft, Non-Tender. Absent: tenderness, distention, rigidity - Extremities Exam Extremities exam: Present: normal inspection, full ROM - Expanded Upper Extremity Exam Shoulder exam: Present: normal inspection, full ROM Arm exam: Present: normal inspection, full ROM Elbow exam: Present: normal inspection, full ROM Forearm/Wrist exam: Present: normal inspection, full ROM Hand exam: Present: normal inspection, full ROM Vascular exam: Normal: radial pulse - Expanded Lower Extremity Exam Hip/Pelvis exam: Present: normal inspection, full ROM Upper leg exam: Present: normal inspection, full ROM Knee exam: Present: normal inspection, full ROM Lower leg exam: Present: normal inspection, full ROM, swelling (There is nonpitting edema to the right lower extremity from the knee distal. Tenderness to palpation in the right calf.) Ankle exam: Present: normal inspection, full ROM Foot/toe exam: Present: normal inspection, full ROM Neurovascular/Tendon exam: Absent: motor deficit, sensory deficit - Neurological Exam Neurological exam: Present: alert, oriented X3, other (GCS 15. Moves all extremities equally. Nonfocal neurologic exam.) - Psychiatric Psychiatric exam: Present: normal affect, anxious - Skin Skin exam: Present: warm, dry, intact, normal color Course Course Narrative: Patient seen and examined. We will obtain an EKG, chest x-ray as well as labs including d-dimer and troponin. We will also obtain a urinalysis. Patient has right lower extremity swelling so we will also obtain a Doppler for DVT rule out. - Reevaluation(s) Reevaluation #1: Discussed results of labs and imaging with the patient's family. She will be admitted for chest pain rule out. They are in agreement. Vital Signs Temperature 98.2 F 03/11/17 15:20 Pulse Rate 79 03/11/17 15:20 Respiratory Rate 18 03/11/17 15:20 Blood Pressure 125/80 03/11/17 15:20 O2 Sat by Pulse Oximetry 96 03/11/17 15:20 Temperature 98.2 F 03/11/17 15:20 Pulse Rate 79 03/11/17 15:20 Respiratory Rate 18 03/11/17 15:20 Blood Pressure 125/80 03/11/17 15:20 O2 Sat by Pulse Oximetry 96 03/11/17 15:20 Oxygen Delivery Oxygen Delivery Room Air Medical Decision Making - [facility] Narrative Medical decision making narrative: 77-year-old female presents to the ER due to shortness of breath chest pain and lower extremity weakness. Reports a prior history of anxiety but states this was different. She denies any anxiety at the current moment. Her EKG is nonischemic. Chest x-ray unremarkable. She did have right lotion be swelling with DVT study reported as negative by the tech. D-dimer was elevated at [address] so we pursued a CT of her chest which showed no PE as per radiology read. First troponin is negative. She is admitted to the hospitalist service for further management. - Lab Data Lab results reviewed: Yes I reviewed the patient's lab results. Result diagrams: 03/11/17 16:54 03/11/17 16:54 Lab Results 03/11/17 03/11/17 03/11/17 Range/Units 16:54 16:54 16:54 WBC 10.9 (4.3-11.1) K/mcL RBC 5.46 H (3.82-4.97) M/mcL Hgb 16.2 H (11.5-15.4) g/dL Hct 48.6 H (35.3-44.9) % MCV 89.0 (83.0-100.0) fL MCH 29.7 (28.0-33.3) pg MCHC 33.3 (31.6-35.5) g/dL RDW 13.2 (11.5-14.5) % Plt Count 226 (140-400) K/mcL MPV 9.4 (9.4-12.4) fL Immature Gran % 0.3 (0-4) % Seg Neutrophils % 77.1 % Lymphocytes % 16.0 % Monocytes % 5.5 % Eosinophils % 0.5 % Basophils % 0.6 % Neutrophils # 8.4 (1.6-8.9) K/mcL Lymphocytes # 1.7 (0.6-4.6) K/mcL Monocytes # 0.6 (0.0-1.3) K/mcL Eosinophils # 0.1 (0.0-0.6) K/mcL Basophils # 0.1 (0.0-0.2) K/mcL D-Dimer 992 H (0-500) ng/mLFEU Sodium 140 (136-145) mEq/L Potassium 4.2 (3.5-4.5) mEq/L Chloride 106 (98-109) mEq/L Carbon Dioxide 27 (19-29) mEq/L BUN 21 H (7-20) mg/dL Creatinine 1.02 (0.57-1.11) mg/dL Est GFR ( Amer) > 60 (> 60) Est GFR (Non-Af Amer) 53 L (> 60) BUN/Creatinine Ratio 21 (6-26) Glucose 132 H (70-99) mg/dL Calculated Osmolality 295 (280-300) Calcium 9.8 (8.6-10.8) mg/dL Troponin I (0-0.03) ng/mL B-Natriuretic Peptide (0-100) pg/mL Urine Color (Yellow) Urine Clarity (Clear) Urine pH (5.0-8.0) pH Units Ur Specific [place] (1.010-1.025) Urine Protein (Neg-Trace) mg/dL Urine Glucose (UA) (Normal) mg/dL Urine Ketones (Negative) mg/dL Urine Blood (Negative) Urine Nitrite (Negative) Urine Bilirubin (Negative) Urine Urobilinogen (Normal) mg/dL Ur Leukocyte Esterase (Negative) Urine Microscopic RBC (0-3) per hpf Urine Microscopic WBC (0-3) per hpf Ur Squamous Epith Cells (None-Few) per lpf Urine Bacteria (None-Few) per hpf Hyaline Casts (None-Few) per lpf Ur Culture Indicated? (NO) 03/11/17 03/11/17 03/11/17 Range/Units 16:54 16:54 16:55 WBC (4.3-11.1) K/mcL RBC (3.82-4.97) M/mcL Hgb (11.5-15.4) g/dL Hct (35.3-44.9) % MCV (83.0-100.0) fL MCH (28.0-33.3) pg MCHC (31.6-35.5) g/dL RDW (11.5-14.5) % Plt Count (140-400) K/mcL MPV (9.4-12.4) fL Immature Gran % (0-4) % Seg Neutrophils % % Lymphocytes % % Monocytes % % Eosinophils % % Basophils % % Neutrophils # (1.6-8.9) K/mcL Lymphocytes # (0.6-4.6) K/mcL Monocytes # (0.0-1.3) K/mcL Eosinophils # (0.0-0.6) K/mcL Basophils # (0.0-0.2) K/mcL D-Dimer (0-500) ng/mLFEU Sodium (136-145) mEq/L Potassium (3.5-4.5) mEq/L Chloride (98-109) mEq/L Carbon Dioxide (19-29) mEq/L BUN (7-20) mg/dL Creatinine (0.57-1.11) mg/dL Est GFR ( Amer) (> 60) Est GFR (Non-Af Amer) (> 60) BUN/Creatinine Ratio (6-26) Glucose (70-99) mg/dL Calculated Osmolality (280-300) Calcium (8.6-10.8) mg/dL Troponin I 0.00 (0-0.03) ng/mL B-Natriuretic Peptide 54 (0-100) pg/mL Urine Color Yellow (Yellow) Urine Clarity Cloudy A (Clear) Urine pH 6.0 (5.0-8.0) pH Units Ur Specific [place] 1.022 (1.010-1.025) Urine Protein Negative (Neg-Trace) mg/dL Urine Glucose (UA) Normal (Normal) mg/dL Urine Ketones Negative (Negative) mg/dL Urine Blood Negative (Negative) Urine Nitrite Positive A (Negative) Urine Bilirubin Negative (Negative) Urine Urobilinogen Normal (Normal) mg/dL Ur Leukocyte Esterase Negative (Negative) Urine Microscopic RBC 0-3 (0-3) per hpf Urine Microscopic WBC 0-3 (0-3) per hpf Ur Squamous Epith Cells Many H (None-Few) per lpf Urine Bacteria Many H (None-Few) per hpf Hyaline Casts None Seen (None-Few) per lpf Ur Culture Indicated? YES A (NO) - Radiology Data Radiology results reviewed: Yes I reviewed the patient's radiology results. Chest X-Ray 03/11/17 16:40 IMPRESSION: 1. No acute cardiopulmonary disease. D/ / Shreyas He MD / Shreyas He MD Interpreting Provider: Shreyas He MD Head CT 03/11/17 16:41 IMPRESSION: No acute intracranial abnormality. D/ / Clarissa Howard MD / Clarissa Howard MD Interpreting Provider: Clarissa Howard MD Chest CTA 03/11/17 17:36 IMPRESSION: 1. No evidence of pulmonary embolic disease. 2. No acute pulmonary findings. D/ / Umair Abraham MD / Umair Abraham MD Interpreting Provider: Umair Abraham MD - EKG Data EKG #1 EKG attestation: Yes I reviewed and interpreted this EKG. EKG results narrative: EKG demonstrates sinus rhythm with a rate of 71 bpm. Normal axis. Prolonged WA interval of 208. Other intervals normal. Normal R-wave progression. No ST elevations or depressions. No acute ischemic findings. S.B.A.R. - S.B.A.R. Situation: Demographics, MOA Background: Presenting Complaint, Relevant PMH, Meds, & Allergies Assessment: Vital Signs, Course and respsone to treatment, Exam Concerns, Patient/Family Expectation, Pertinant Lab Results, Outstanding Labs Recommendation: Barrier(s) to disposition, Recommendation based on pending studies, treatments, or consults S.B.A.R. Report Given to: Enrique BarahonaBSalo Repor Time: 18:47 Attestation Statement - Attestation Attestation: I examined this patient and my medical decision-making was reviewed with the Resident Physician. I agree with the documented findings, disposition and treatment plan as described except to the extent set forth below. Patient to ED complaining of multiple complaints that she is relating to her anxiety. Headache, shortness of breath, chest pain, legs heavy. On examination patient is a moderate amount of swelling to the right leg. Patient is unable to state when she thinks this started. It was sometimes after her knee replacement. Lungs are clear vitals are stable and she is in no distress. Plan. Time was positive. We will check a CTA. She is negative for DVT in the leg. Cardiac workup and reevaluate.
[2017-03-11 17:18] LABS: Bilirubin,Urine Negative (Negative); Blood,Urine Negative (Negative); Clarity,Urine Cloudy (Clear); Color,Urine Yellow (Yellow); Glucose,Urine (UA) Normal (Normal); Ketones,Urine Negative (Negative); Leukocyte Esterase,Urine Negative (Negative); Nitrite,Urine Positive (Negative); Protein,Urine Negative (Neg-Trace); Specific Gravity,Urine 1.022 (1.010-1.025); Urobilinogen,Urine Normal (Normal)
[2017-03-11 17:19] LABS: Bacteria,Urine Many per hpf (None-Few); Hyaline Casts,Urine None Seen per lpf (None-Few); RBC,Urine 0-3 per hpf (0-3); Squamous Epithelial Cell,Urine Many per lpf (None-Few); WBC,Urine 0-3 per hpf (0-3)
[2017-03-11 17:20] LABS: BUN/Creatinine Ratio 21 (6-26); Blood Urea Nitrogen 21 mg/dL (7-20); Calcium 9.8 mg/dL (8.6-10.8); Carbon Dioxide 27 mEq/L (19-29); Chloride 106 mEq/L (98-109); Glucose 132 mg/dL (70-99); Osmolality,Calculated 295 (280-300); Potassium 4.2 mEq/L (3.5-4.5); Sodium 140 mEq/L (136-145); eGFR For African Americans > 60 (> 60); eGFR For Non-African Americans 53 (> 60)
[2017-03-11] MEDS ORDERED: 0.9 % Sodium Chloride 1,000 ML IVC ONE (17:32)
--- NOTE | 2017-03-11 21:06 | Internal Med History&Physical ---
<Shahram Aparicio - Last Filed: 03/11/17 22:39> Date of Encounter: 03/11/17 Time of Encounter: 21:10 Assessment and Plan (1) Anxiety attack Current visit: Yes Status: Acute Patient presents to [place] after having constant whole-body squeezing due to anxiety attack. Although she states this is worse than her normal anxiety attack, she says this also similar pattern. States whole-body pain and shortness of breath began after having argument with her boyfriend earlier that day and also reports having increased aggravation at home recently. She reports no prior difficulties with her heart. Physical exam was unremarkable, EKG not concerning for ischemic change, initial troponin negative. Heart score 3. 0.5 mg IV Ativan 3 times a day for anxiety Continue home medications including quetiapine, hydroxyzine, citalopram We will trend troponins EKG in the morning We will obtain lipid profile Check electrolytes and TSH including Monitor on telemetry and continuous pulse oximetry Echo in the morning (2) Dehydration Current visit: No Status: Acute Evidence of hemoconcentration seen on patient labwork. Patient given 1 L NS in the ER. will recheck patient labwork in the am (3) COPD (chronic obstructive pulmonary disease) Current visit: No Status: Chronic Patient has chronic smoker with history of COPD. Patient uses albuterol, Symbicort at home. No wheezes on auscultation and chest x-ray unremarkable. No suspicion for exacerbation. We will continue home medication Qualifiers: COPD type: unspecified COPD Qualified Code(s): J44.9 - Chronic obstructive pulmonary disease, unspecified (4) DVT prophylaxis Current visit: No Status: Acute 40 mg Lovenox subcutaneous daily (5) HTN (hypertension) Current visit: No Status: Chronic Patient has history of hypertension and takes lisinopril, 10 mg, at home. Continue lisinopril Qualifiers: Hypertension type: essential hypertension Qualified Code(s): I10 - Essential (primary) hypertension (6) Hyperlipemia Current visit: No Status: Chronic Patient on 10 mg atorvastatin at home Continue Qualifiers: Hyperlipidemia type: mixed hyperlipidemia Qualified Code(s): E78.2 - Mixed hyperlipidemia (7) Tobacco abuse Current visit: No Status: Acute Patient reports smoking about 1 pack a week, currently attempting cessation Internal Medicine - H&P: HPI Chief complaint: Anxiety attack Admitted From: Home Plans for Post Hospital Care: Home History of present illness: Ms. Cobos is a 77 year old female with prior medical history of hypertension, hyperlipidemia, COPD, anxiety, a previous stress induced psychosis who presents to emergency room today complaining of onset of anxiety attack earlier today. She states anxiety attack began in the afternoon while she was at her boyfriend' s. She states that he was Barb at her because of issues regarding her car that she has been having increased aggravation recently, though can explain why exactly. He began to feel anxiety attack coming on and feels that recently she has been having them more frequently and that they have been worse. She states that she feels a squeezing over her entire body, including chest pain, abdominal pain, and leg pain that she rates as 8-9/10 in severity. She states nothing makes the pain worse and that typically calming down or sleeping makes the pain better. During this most recent attack she feels like her throat was closing and she is having difficulty breathing. She also reports having a headache and some lightheadedness. She denies diaphoresis, denies nausea/ vomiting, denies jaw pain. She reports never having prior difficulty with her heart. Past Med Surg Social Fam HX - Past Medical History Medical history: COPD, hyperlipidemia, hypertension, other Psychiatric history: anxiety, depression - Past Surgical History Surgical History: breast surgery, , cholecystectomy, hip replacement, hysterectomy, knee replacement, other - Social History Smoking Status: Current every day smoker Smokeless Tobacco Status: No Alcohol use: none Drug use: none - Family History Mother Living Status: Hx Family Cardiac Disorders: No Hx Family Respiratory Disorders: Yes Hx Family Cancer: No Hx Family GI Disorders: No Hx Family Endocrine Disorder: No Hx Family Neuromuscular Disorders: No Hx Family Neurologic Disorders: No Hx Family HEENT Disorders: No Hx Family Autoimmune Disorders: No Father Living Status: Age at : 54 Cause of : Huntingtons Disease Hx Family Endocrine Disorder: Yes (DM) Hx Family Medical Disorders: Yes (Chrissie's Disease) Internal Medicine - H&P: Meds Aspirin 81 mg PO DAILY 02/08/15 [History] Atorvastatin [Lipitor] 10 mg PO HS 02/08/15 [History] Docusate [Colace] 100 mg PO DAILY PRN 02/08/15 [History] Budesonide/Formoterol 160/4.5 [Symbicort 160/4.5] 2 puff IH BIDR 02/11/15 [ History] Albuterol Sulfate [Albuterol Inhaler] 2 puff IH Q4HR PRN #1 hfa.aer.ad 04/17/16 [Rx] Citalopram [CeleXA] 20 mg PO DAILY 09/09/16 [History] Gabapentin [Neurontin] 300 mg PO TID 09/09/16 [History] HydrOXYzine Pamoate [Vistaril] 50 mg PO Q6H PRN 09/09/16 [History] HYDROcodone/Acet 10/325 mg [[place] 10-325 mg] 1 tab PO Q6H PRN 03/11/17 [History] Lisinopril [Zestril] 10 mg PO DAILY 03/11/17 [History] Naproxen Sodium [Aleve] 220 mg PO Q12H PRN 03/11/17 [History] Quetiapine Fumarate [Seroquel] 50 mg PO BID 03/11/17 [History] 3 Allergy/AdvReac Type Severity Reaction Status Date / Time codeine Allergy UNKNOWN Verified 03/11/17 15:25 REACTION Penicillins Allergy UNKNOWN Verified 03/11/17 15:25 REACTION Review of systems: Gen: Denies fever, denies chills, denies weakness, denies fatigue, reports whole body squeezing sensation CV: Reports chest pain, denies exertional chest pain or dyspnea, denies palpitations Resp: Reports shortness of breath, denies pleuritic pain, denies coughing, denies changes in phlegm production, denies wheeze GI: Denies nausea, denies vomiting, reports abdominal pain, denies constipation , denies diarrhea, denies hematochezia, denies melena MSK: Reports arthralgia, denies muscle weakness, reports pain in right leg s/p knee replacement, reports pain in left hip s/p hip replacement and recent fall Neuro: Reports headache, denies confusion, denies focal weakness, denies numbness, denies tingling, denies vision changes, reports lightheadedness Skin: Denies bruising, denies rash : Denies flank pain, denies dysuria, denies hematuria - Constitutional Vitals: Temp Pulse Resp BP Pulse Ox 98.5 F 61 15 131/76 96 03/11/17 20:15 03/11/17 20:15 03/11/17 20:15 03/11/17 20:15 03/11/17 20:15 Exam: General: Cooperative, pleasant, no acute distress, alert and oriented 3, answers questions appropriately HEENT: Normocephalic, atraumatic, neck supple, trachea midline, Conjunctiva pink , sclera anicteric, EOMI, PERRL, oral mucosa moist, no orophargeal erythema or exudates Respiratory: No accessory muscle usage, clear to auscultation bilaterally, no wheezes/rhonchi/rales appreciated Cardiovascular: Regular rate and rhythm, S1 and S2 present, no murmurs/rubs/ gallops/clicks appreciated GI/abdominal: Nondistended, nontender, soft, normal bowel sounds, no peritoneal signs Extremities: No calf tenderness, noncyanotic, no pedal edema appreciated, mild increase calf girth on right leg status post replacement warm, lower extremity pulses palpable and symmetrical Neurological: Alert and oriented 3, no facial droop, no focal deficits Skin: Dry, intact, normal color, surgical scar on right knee from previous knee replacement Internal Med - H&P Results - Labs CBC & Chem 7: 03/11/17 16:54 03/11/17 16:54 <Marnie Cadet - Last Filed: 03/12/17 06:41> Date of Encounter: 03/12/17 Time of Encounter: 06:35 Internal Medicine - H&P: HPI History of present illness: Ms. Cobos is a 77 year old female All Systems PM: A 10-system review of systems was performed and is negative for pertinent findings except as documented above in the HPI. - Constitutional Vitals: Temp Pulse Resp BP Pulse Ox 97.9 F 61 17 110/51 95 03/12/17 05:04 03/12/17 05:04 03/12/17 05:04 03/12/17 05:04 03/12/17 05:04 Internal Med - H&P Results - Labs CBC & Chem 7: 03/12/17 04:13 03/12/17 04:13 Labs: Short CBC 03/12/17 Range/Units 04:13 WBC 9.2 (4.3-11.1) K/mcL Hgb 15.0 (11.5-15.4) g/dL Hct 45.2 H (35.3-44.9) % Plt Count 215 (140-400) K/mcL Neutrophils # 6.4 (1.6-8.9) K/mcL BMP 03/12/17 04:13 Sodium 141 Potassium 4.4 Chloride 108 Carbon Dioxide 23 BUN 22 H Creatinine 0.98 Glucose 116 H Calcium 9.2 Cardiac Enzymes 03/11/17 03/12/17 Range/Units 22:13 04:13 Troponin I 0.00 0.00 (0-0.03) ng/mL - Attending Attestation I have independently seen and examined the patient. Patient has history of anxiety and reported of having chest pain as she had an argument with her significant other. She is currently chest pain free. No EKG changes and negative TNI. Chest pain likely induced by anxiety attack. Will start Xanax PO prn. trend serial TNI continue home medications Case discussed with resident physician Shahram Aparicio, I agree with his documented findings, disposition, and plan except as listed above.
[2017-03-11] MEDS ORDERED: *HR* Morphine 2 MG/ML SYRINGE IVP PRN ×2 (21:18)
[2017-03-11] MEDS ORDERED: Nitroglycerin 0.4 MG TAB.SUBL SL PRN (21:18)
[2017-03-11] MEDS ORDERED: Acetaminophen 325 MG TABLET PO PRN (21:18)
[2017-03-11] MEDS ORDERED: Ondansetron 4 MG/2 ML VIAL IVP PRN (21:18)
[2017-03-11] MEDS ORDERED: Naloxone 0.4 MG/ML INJ IVP PRN (21:18)
[2017-03-11] MEDS ORDERED: *HR* HYDROcodone/Acet 10/325 mg TABLET PO PRN (21:26)
[2017-03-11] MEDS ORDERED: hydrOXYzine pamoate 25 MG CAPSULE PO PRN (21:26)
[2017-03-11] MEDS ORDERED: *HR* LORazepam 2 MG/ML VIAL IVP PRN (21:27)
[2017-03-11] MEDS: Budesonide/Formoterol 160/4.5 MDI IH SCH (22:00)
[2017-03-11] MEDS: Gabapentin 300 MG CAPSULE PO SCH (22:09)
[2017-03-11] MEDS ORDERED: ALPRAZolam 0.25 MG TABLET PO PRN (22:39)
[2017-03-12 05:02] LABS: Basophils # 0.1 K/mcL (0.0-0.2); Basophils % 0.7 %; Eosinophils # 0.1 K/mcL (0.0-0.6); Eosinophils % 1.4 %; Hematocrit 45.2 % (35.3-44.9); Immature Granulocytes % 0.2 % (0-4); Lymphocytes # 1.9 K/mcL (0.6-4.6); Lymphocytes % 20.5 %; Mean Corpuscular HGB Conc 33.2 g/dL (31.6-35.5); Mean Corpuscular Hemoglobin 29.6 pg (28.0-33.3); Mean Corpuscular Volume 89.3 fL (83.0-100.0); Mean Platelet Volume 10.4 fL (9.4-12.4); Monocytes # 0.7 K/mcL (0.0-1.3); Neutrophils # 6.4 K/mcL (1.6-8.9); Platelet Count 215 K/mcL (140-400); Red Blood Count 5.06 M/mcL (3.82-4.97); Red Cell Distribution Width 13.2 % (11.5-14.5); Segmented Neutrophils % 69.2 %
[2017-03-12 05:37] LABS: BUN/Creatinine Ratio 22 (6-26); Blood Urea Nitrogen 22 mg/dL (7-20); Calcium 9.2 mg/dL (8.6-10.8); Carbon Dioxide 23 mEq/L (19-29); Chloride 108 mEq/L (98-109); Chol/HDL Ratio 3.2 (0-4.9); Cholesterol 149 mg/dL (< 200); Glucose 116 mg/dL (70-99); HDL Cholesterol 47 mg/dL (40-59); Magnesium 2.1 mg/dL (1.6-2.6); Osmolality,Calculated 296 (280-300); Phosphorous 3.7 mg/dL (2.3-4.7); Sodium 141 mEq/L (136-145); eGFR For African Americans > 60 (> 60); eGFR For Non-African Americans 55 (> 60)
[2017-03-12 05:39] LABS: Potassium 4.4 mEq/L (3.5-4.5)
[2017-03-12 05:44] LABS: Thyroid Stimulating Hormone 1.407 mcIU/mL (0.350-4.840)
[2017-03-12] MEDS: *HR* Enoxaparin 40 MG/0.4 ML SYRINGE SQ SCH (06:30)
[2017-03-12 06:45] LABS: LDL Cholesterol,Calculated 77 mg/dL (0-99); Triglycerides 126 mg/dL (< 150)
[2017-03-12] MEDS: Gabapentin 300 MG CAPSULE PO SCH ×3 (09:38→21:08)
[2017-03-12] MEDS: Aspirin 81 MG TAB.CHEW PO SCH (09:38)
[2017-03-12] MEDS: Budesonide/Formoterol 160/4.5 MDI IH SCH ×2 (10:51→22:52)
[2017-03-12] MEDS ORDERED: *HR* HYDROcodone/Acet 10/325 mg TABLET PO PRN (11:26)
--- NOTE | 2017-03-12 14:09 | Internal Med Progress Note ---
Date of Encounter: 03/12/17 Time of Encounter: 10:00 - Assessment and plan (1) HTN (hypertension) Current Visit: No Status: Chronic Assessment and plan: Continue home medications Qualifiers: Hypertension type: essential hypertension Qualified Code(s): I10 - Essential (primary) hypertension (2) COPD (chronic obstructive pulmonary disease) Current Visit: No Status: Chronic Assessment and plan: Stable. No signs of exacerbation. Continue home medications Qualifiers: COPD type: emphysema Emphysema type: other Qualified Code(s): J43.8 - Other emphysema (3) Hyperlipemia Current Visit: No Status: Chronic Assessment and plan: Continue home medications Qualifiers: Hyperlipidemia type: mixed hyperlipidemia Qualified Code(s): E78.2 - Mixed hyperlipidemia (4) Tobacco abuse Current Visit: No Status: Acute Assessment and plan: Smoking cessation education. Not on nicotine patch (5) DVT prophylaxis Current Visit: No Status: Acute Assessment and plan: Lovenox subcutaneously (6) Anxiety attack Current Visit: Yes Status: Acute Assessment and plan: Patient has a history of anxiety attack. On seroquel. Place the patient on Xanax when necessary. Continue Seroquel. Ask psych consult. - Patient did not report difficulty breathing/chest pain. Chest x-ray, EKG are unremarkable. 3 sets of troponin negative. Will follow echocardiogram. - Time Spent With Patient 25 - 35 minutes - Subjective Interval history: Patient is a 77-year-old female admitted for panic attack/anxiety. Past medical history is significant for COPD, hypertension, hyperlipidemia, anxiety, and depression. I saw and examined the patient. Patient feels fine. No complaints at that point. Vitals are stable. 3 sets of troponin negative. As patient described, she feels pressure on neck seems she cannot breathe, which is more like a panic attack, and patient has similar problem before. Will consult psychiatry. Continue closely monitor patient. Patient had a CTA in the emergency room, no PE. - Constitutional Vitals: Temp Pulse Resp BP Pulse Ox 98.1 F 59 18 113/65 97 03/12/17 10:42 03/12/17 10:42 03/12/17 10:51 03/12/17 10:42 03/12/17 10:51 - Head Head exam: Present: atraumatic, normocephalic - Eye Eye exam: Present: PERRL, conjuntiva pink, sclera anicteric Pupils: Present: PERRL - Neck Neck exam general surgery: Present: supple, trachea midline. Absent: lymphadenopathy - Respiratory Respiratory exam: Present: CTAB. Absent: accessory muscle use, rales, rhonchi, wheezes - Cardiovascular Cardiovascular exam: Present: RRR, +S1, +S2. Absent: diastolic murmur, gallop, rubs, systolic murmur - GI/Abdominal GI/Abdominal exam: Present: normal bowel sounds, soft, no peritoneal signs. Absent: distended, tenderness - Extremities Exam Extremities exam: Present: warm, radial pulses palpable and symmetrical. Absent : calf tenderness, cyanotic, pedal edema - Neurological Exam Neurological exam: Present: CN II-XII intact, oriented X3, no focal deficits. Absent: pronater drift, facial droop, speech deficit - Skin Skin exam: Present: dry, intact Internal Medicine: Result - Labs CBC & Chem 7: 03/12/17 04:13 03/12/17 04:13 Labs: Short CBC 03/12/17 Range/Units 04:13 WBC 9.2 (4.3-11.1) K/mcL Hgb 15.0 (11.5-15.4) g/dL Hct 45.2 H (35.3-44.9) % Plt Count 215 (140-400) K/mcL Neutrophils # 6.4 (1.6-8.9) K/mcL BMP 03/12/17 04:13 Sodium 141 Potassium 4.4 Chloride 108 Carbon Dioxide 23 BUN 22 H Creatinine 0.98 Glucose 116 H Calcium 9.2 Cardiac Enzymes 03/11/17 03/12/17 Range/Units 22:13 04:13 Troponin I 0.00 0.00 (0-0.03) ng/mL - ABG Interpretation ABG results: PT/INR, D-dimer D-Dimer 992 ng/mLFEU (0-500) H 03/11/17 16:54 Consult Discharge Plan - Plan Referrals: Low Olmstead DO [Primary Care Provider] -
[2017-03-13] MEDS: *HR* Enoxaparin 40 MG/0.4 ML SYRINGE SQ SCH (06:26)
[2017-03-13 06:35] LABS: Basophils % 0.5 %; Eosinophils # 0.1 K/mcL (0.0-0.6); Eosinophils % 1.3 %; Hematocrit 45.1 % (35.3-44.9); Hemoglobin 14.2 g/dL (11.5-15.4); Immature Granulocytes % 0.4 % (0-4); Lymphocytes # 1.7 K/mcL (0.6-4.6); Lymphocytes % 21.6 %; Mean Corpuscular HGB Conc 31.5 g/dL (31.6-35.5); Mean Corpuscular Hemoglobin 28.1 pg (28.0-33.3); Mean Corpuscular Volume 89.1 fL (83.0-100.0); Mean Platelet Volume 10.2 fL (9.4-12.4); Monocytes # 0.7 K/mcL (0.0-1.3); Monocytes % 8.3 %; Neutrophils # 5.4 K/mcL (1.6-8.9); Platelet Count 204 K/mcL (140-400); Red Blood Count 5.06 M/mcL (3.82-4.97); Segmented Neutrophils % 67.9 %
[2017-03-13 06:48] LABS: BUN/Creatinine Ratio 29 (6-26); Blood Urea Nitrogen 30 mg/dL (7-20); Calcium 9.3 mg/dL (8.6-10.8); Carbon Dioxide 26 mEq/L (19-29); Chloride 105 mEq/L (98-109); Glucose 98 mg/dL (70-99); Osmolality,Calculated 294 (280-300); Potassium 4.6 mEq/L (3.5-4.5); Sodium 139 mEq/L (136-145); eGFR For African Americans > 60 (> 60); eGFR For Non-African Americans 52 (> 60)
[2017-03-13 07:15] VITALS: BP 136/70
[2017-03-13] MEDS: Gabapentin 300 MG CAPSULE PO SCH ×2 (09:50→14:46)
[2017-03-13] MEDS: Aspirin 81 MG TAB.CHEW PO SCH (09:52)
[2017-03-13] MEDS: Budesonide/Formoterol 160/4.5 MDI IH SCH (11:33)
--- NOTE | 2017-03-13 15:48 | Discharge Summary ---
Date of Encounter: 03/13/17 Time of Encounter: 11:00 - Discharge Diagnosis (1) HTN (hypertension) Priority: Secondary Status: Chronic Qualifiers: Qualified Code(s): I10 - Essential (primary) hypertension (2) COPD (chronic obstructive pulmonary disease) Priority: Secondary Status: Chronic Qualifiers: Qualified Code(s): J43.8 - Other emphysema (3) Hyperlipemia Priority: Secondary Status: Chronic Qualifiers: Qualified Code(s): E78.2 - Mixed hyperlipidemia (4) Tobacco abuse Priority: Secondary Status: Acute (5) DVT prophylaxis Priority: Secondary Status: Acute (6) Anxiety attack Priority: Primary Status: Acute - Discharge Medications Prescriptions: RX: Ciprofloxacin [Cipro] 250 mg PO BID #4 tablet Home Medications: RX: Aspirin 81 mg PO DAILY 02/08/15 [History] RX: Atorvastatin [Lipitor] 10 mg PO HS 02/08/15 [History] RX: Docusate [Colace] 100 mg PO DAILY PRN 02/08/15 [History] RX: Budesonide/Formoterol 160/4.5 [Symbicort 160/4.5] 2 puff IH BIDR 02/11/15 [ History] RX: Albuterol Sulfate [Albuterol Inhaler] 2 puff IH Q4HR PRN #1 hfa.aer.ad 04/17 [Rx] RX: Citalopram [CeleXA] 20 mg PO DAILY 09/09/16 [History] RX: Gabapentin [Neurontin] 300 mg PO TID 09/09/16 [History] RX: HydrOXYzine Pamoate [Vistaril] 50 mg PO Q6H PRN 09/09/16 [History] RX: HYDROcodone/Acet 10/325 mg [[place] 10-325 mg] 1 tab PO Q6H PRN 03/11/17 [ History] RX: Lisinopril [Zestril] 10 mg PO DAILY 03/11/17 [History] RX: Naproxen Sodium [Aleve] 220 mg PO Q12H PRN 03/11/17 [History] RX: Quetiapine Fumarate [Seroquel] 50 mg PO BID 03/11/17 [History] RX: Ciprofloxacin [Cipro] 250 mg PO BID #4 tablet 03/13/17 [Rx] Allergies/Adverse Reactions: 3 Allergy/AdvReac Type Severity Reaction Status Date / Time codeine Allergy UNKNOWN Verified 03/11/17 15:25 REACTION Penicillins Allergy UNKNOWN Verified 03/11/17 15:25 REACTION Procedures/tests Complete & Pending: Procedures Performed prior 72 hours Category Date Time Status ECG 12 lead ECG [ECG] AM 0600 Y 03/12/17 06:00 Ordered EV echocardiogram Routine Y 03/12/17 22:39 Completed Date of admission: 03/11/17 19:32 Primary care physician: Low Olmstead, Consults: 03/11/17 22:35 Consult to Nutrition [CONS] Routine Comment: Consulting Provider: NUTRITION Reason for Dietary Consult: MST Score Consult to Route Delivery Driver [CONS] Routine Reason for SW Consult: Wants information about home health services, lives with daughter. 03/12/17 13:18 Consult to Psychiatry [CONS] Routine Consulting Provider: Psychiatry Mary Reason for Consult: panic attack Call Completed: Yes Discharging clinician: Jude Tong Anticipated date of discharge: 03/13/17 - Patient Status Disposition: Home Health Service Condition: Good Overall status at discharge: patient is back to baseline - Discharge Instructions Follow Up With: Low Olmstead, DO [Primary Care Provider] - - Diet and Activity Activity: increase activity as tolerated Diet: low fat, low cholesterol, low salt diet Interval History: HPI on Admission: Ms. Cobos is a 77 year old female with prior medical history of hypertension, hyperlipidemia, COPD, anxiety, a previous stress induced psychosis who presents to emergency room today complaining of onset of anxiety attack earlier today. She states anxiety attack began in the afternoon while she was at her boyfriend' s. She states that he was Barb at her because of issues regarding her car that she has been having increased aggravation recently, though can explain why exactly. He began to feel anxiety attack coming on and feels that recently she has been having them more frequently and that they have been worse. She states that she feels a squeezing over her entire body, including chest pain, abdominal pain, and leg pain that she rates as 8-9/10 in severity. She states nothing makes the pain worse and that typically calming down or sleeping makes the pain better. During this most recent attack she feels like her throat was closing and she is having difficulty breathing. She also reports having a headache and some lightheadedness. She denies diaphoresis, denies nausea/ vomiting, denies jaw pain. She reports never having prior difficulty with her heart. Hospital course: Ms. Cobos is a 77 year old female admitted to for panic attack. Patient has a history of a panic attack with about a once a day attack at home. Patient was admitted also to rule out ACS. She was placed on cardiac monitoring and 3 sets of troponin was checked. 3 sets of troponin Negative. Psychiatry consult was called. Psychiatrist saw patient, recommended continue current treatment and continue follow-up with outpatient psychiatry (the PCP had discussed increased the dose of Seroquel and gabapentin. Patient was found urine culture positive with Escherichia coli, sensitivity is pansensitive. Patient denies urination symptoms. Will go patient Cipro 250 mg twice a day for 3 days for uncomplicated UTI. Patient was seen and examined. No panic attacks over last 24 hours. Feels fine. Denies chest pain or shortness of breath. Vitals are stable. We will discharge patient to home and continue home health. Continue follow-up with PCP as outpatient, recommended refer to outpatient psychiatry. - Time Spent with Patient Total time spent providing and/or coordinating discharge services: 25 min Less than 30 minutes - Constitutional Vitals: Temp Pulse Resp BP Pulse Ox 97.8 F 60 187 136/70 97 03/13/17 07:11 03/13/17 07:11 03/13/17 07:11 03/13/17 07:11 03/13/17 07:11 General appearance: Present: A&O X 3, pleasant, no acute distress, answers questions appropriately - Head Head exam: Present: atraumatic, normocephalic - Eye Eye exam: Present: PERRL, conjuntiva pink, sclera anicteric Pupils: Present: PERRL - Neck Neck exam general surgery: Present: supple, trachea midline. Absent: lymphadenopathy - Respiratory Respiratory exam: Present: CTAB. Absent: accessory muscle use, rales, rhonchi, wheezes - Cardiovascular Cardiovascular exam: Present: RRR, +S1, +S2. Absent: diastolic murmur, gallop, rubs, systolic murmur - GI/Abdominal GI/Abdominal exam: Present: normal bowel sounds, soft, no peritoneal signs. Absent: distended, tenderness - Extremities Exam Extremities exam: Present: warm, radial pulses palpable and symmetrical. Absent : calf tenderness, cyanotic, pedal edema - Neurological Exam Neurological exam: Present: CN II-XII intact, oriented X3, no focal deficits. Absent: pronater drift, facial droop, speech deficit - Skin Skin exam: Present: dry, intact
--- NOTE | 2017-03-13 16:31 | Consult Note ---
Date of Encounter: 03/13/17 Time of Encounter: 13:00 History of Present Illness Requesting Physician: Jude Tong MD Reason for consult: panic attacks History of present illness: Ms. Cobos is a 77 year old female consulted today for panic attacks. i talked to Dr Tong regarding this patient AND HER MEDICATIONS AND DISCHARGE PLANNING. Patient is pleasent , cooperative WF who lives with her daughter, came to ER for anxiety and whole body pain and recently had argument with boy friend and increased aggravation at home recently. As per patient her PCP has done some changes recently and feels that has helped , states today she is feeling pretty good ,states she has anxiety attacks and feels bugs crawling on her skin and then skin tightness and Shortness of breath, people think i am crazy but that is how i feel. patient denies any psychosis, manic s/s, no si/no hi. as per her seroquel was increased to two times a day and gabapentin was also increased recently by her PCP. she doesnot have psychiatrist. A/p Panic attacks Depressive disorder nos. REC to continue her celexa, seroquel and hydroxyzine. she will need to follow up with psychiatrist as out patient for her management of medications and anxiety and depression. Thank you for consult and will sign off CC: Jude Tong MD Past Med Surg Social Fam HX - Past Medical History Medical history: COPD, hyperlipidemia, hypertension, other - Past Psychiatric History Psychiatric history: Reports: anxiety, depression - Past Surgical History Surgical History: breast surgery, , cholecystectomy, hip replacement, hysterectomy, knee replacement, other - Social History Smoking Status: Current every day smoker Smokeless Tobacco Status: No Alcohol use: none Drug use: none - Family History Father Living Status: Age at : 54 Cause of : Huntingtons Disease Hx Family Endocrine Disorder: Yes (DM) Hx Family Medical Disorders: Yes (Chrissie's Disease) Mother Living Status: Age at : 78 Cause of : COPD Hx Family Cardiac Disorders: No Hx Family Respiratory Disorders: Yes Hx Family Cancer: No Hx Family GI Disorders: No Hx Family Endocrine Disorder: No Hx Family Neuromuscular Disorders: No Hx Family Neurologic Disorders: No Hx Family HEENT Disorders: No Hx Family Autoimmune Disorders: No Medications & Allergies Aspirin 81 mg PO DAILY 02/08/15 [History] Atorvastatin [Lipitor] 10 mg PO HS 02/08/15 [History] Docusate [Colace] 100 mg PO DAILY PRN 02/08/15 [History] Budesonide/Formoterol 160/4.5 [Symbicort 160/4.5] 2 puff IH BIDR 02/11/15 [ History] Albuterol Sulfate [Albuterol Inhaler] 2 puff IH Q4HR PRN #1 hfa.aer.ad 04/17/16 [Rx] Citalopram [CeleXA] 20 mg PO DAILY 09/09/16 [History] Gabapentin [Neurontin] 300 mg PO TID 09/09/16 [History] HydrOXYzine Pamoate [Vistaril] 50 mg PO Q6H PRN 09/09/16 [History] HYDROcodone/Acet 10/325 mg [[place] 10-325 mg] 1 tab PO Q6H PRN 03/11/17 [History] Lisinopril [Zestril] 10 mg PO DAILY 03/11/17 [History] Naproxen Sodium [Aleve] 220 mg PO Q12H PRN 03/11/17 [History] Quetiapine Fumarate [Seroquel] 50 mg PO BID 03/11/17 [History] 3 Allergy/AdvReac Type Severity Reaction Status Date / Time codeine Allergy UNKNOWN Verified 03/11/17 15:25 REACTION Penicillins Allergy UNKNOWN Verified 03/11/17 15:25 REACTION Review of Systems Psychiatric: Reports: depression, anxiety Mental Status Exam Patient orientation: Yes Person, Yes Time, Yes Place Level of alertness: Alert Patient appearance: Appropriate Behavior: cooperative Psychomotor activity: Normal Eye contact: Maintains Eye Contact Mood description: Euthymic/stable Affect description: congruent with mood Speech pattern: Normal rate Speech volume: Normal Thought process: Intact Thought content: Yes Intact Attention span: Capable of Sustained Attention Memory description: Grossly Intact Patient reliability: Reliable Historian Intelligence estimate: Average Judgment: Good Insight: Full Results - Vital Signs Vital signs: Temp Pulse Resp BP Pulse Ox 97.8 F 60 187 136/70 97 03/13/17 07:11 03/13/17 07:11 03/13/17 07:11 03/13/17 07:11 03/13/17 07:11 - Labs Labs: Laboratory Last Values WBC 7.9 K/mcL (4.3-11.1) 03/13/17 05:34 RBC 5.06 M/mcL (3.82-4.97) H 03/13/17 05:34 Hgb 14.2 g/dL (11.5-15.4) 03/13/17 05:34 Hct 45.1 % (35.3-44.9) H 03/13/17 05:34 MCV 89.1 fL (83.0-100.0) 03/13/17 05:34 MCH 28.1 pg (28.0-33.3) 03/13/17 05:34 MCHC 31.5 g/dL (31.6-35.5) L 03/13/17 05:34 RDW 13.0 % (11.5-14.5) 03/13/17 05:34 Plt Count 204 K/mcL (140-400) 03/13/17 05:34 MPV 10.2 fL (9.4-12.4) 03/13/17 05:34 Immature Gran % 0.4 % (0-4) 03/13/17 05:34 Seg Neutrophils % 67.9 % 03/13/17 05:34 Lymphocytes % 21.6 % 03/13/17 05:34 Monocytes % 8.3 % 03/13/17 05:34 Eosinophils % 1.3 % 03/13/17 05:34 Basophils % 0.5 % 03/13/17 05:34 Neutrophils # 5.4 K/mcL (1.6-8.9) 03/13/17 05:34 Lymphocytes # 1.7 K/mcL (0.6-4.6) 03/13/17 05:34 Monocytes # 0.7 K/mcL (0.0-1.3) 03/13/17 05:34 Eosinophils # 0.1 K/mcL (0.0-0.6) 03/13/17 05:34 Basophils # 0.0 K/mcL (0.0-0.2) 03/13/17 05:34 D-Dimer 992 ng/mLFEU (0-500) H 03/11/17 16:54 Sodium 139 mEq/L (136-145) 03/13/17 05:34 Potassium 4.6 mEq/L (3.5-4.5) H 03/13/17 05:34 Chloride 105 mEq/L (98-109) 03/13/17 05:34 Carbon Dioxide 26 mEq/L (19-29) 03/13/17 05:34 BUN 30 mg/dL (7-20) H 03/13/17 05:34 Creatinine 1.03 mg/dL (0.57-1.11) 03/13/17 05:34 Est GFR ( Amer) > 60 (> 60) 03/13/17 05:34 Est GFR (Non-Af Amer) 52 (> 60) L 03/13/17 05:34 BUN/Creatinine Ratio 29 (6-26) H 03/13/17 05:34 Glucose 98 mg/dL (70-99) 03/13/17 05:34 Calculated Osmolality 294 (280-300) 03/13/17 05:34 Calcium 9.3 mg/dL (8.6-10.8) 03/13/17 05:34 Phosphorus 3.7 mg/dL (2.3-4.7) 03/12/17 04:13 Magnesium 2.1 mg/dL (1.6-2.6) 03/12/17 04:13 Troponin I 0.00 ng/mL (0-0.03) 03/12/17 04:13 B-Natriuretic Peptide 54 pg/mL (0-100) 03/11/17 16:54 Triglycerides 126 mg/dL (< 150) 03/12/17 04:13 Cholesterol 149 mg/dL (< 200) 03/12/17 04:13 LDL Cholesterol, Calc 77 mg/dL (0-99) 03/12/17 04:13 VLDL Cholesterol, Calc 25 mg/dL (< 31) 03/12/17 04:13 HDL Cholesterol 47 mg/dL (40-59) 03/12/17 04:13 Cholesterol/HDL Ratio 3.2 (0-4.9) 03/12/17 04:13 TSH 1.407 mcIU/mL (0.350-4.840) 03/12/17 04:13 Urine Color Yellow (Yellow) 03/11/17 16:55 Urine Clarity Cloudy (Clear) A 03/11/17 16:55 Urine pH 6.0 pH Units (5.0-8.0) 03/11/17 16:55 Ur Specific [place] 1.022 (1.010-1.025) 03/11/17 16:55 Urine Protein Negative mg/dL (Neg-Trace) 03/11/17 16:55 Urine Glucose (UA) Normal mg/dL (Normal) 03/11/17 16:55 Urine Ketones Negative mg/dL (Negative) 03/11/17 16:55 Urine Blood Negative (Negative) 03/11/17 16:55 Urine Nitrite Positive (Negative) A 03/11/17 16:55 Urine Bilirubin Negative (Negative) 03/11/17 16:55 Urine Urobilinogen Normal mg/dL (Normal) 03/11/17 16:55 Ur Leukocyte Esterase Negative (Negative) 03/11/17 16:55 Urine Microscopic RBC 0-3 per hpf (0-3) 03/11/17 16:55 Urine Microscopic WBC 0-3 per hpf (0-3) 03/11/17 16:55 Ur Squamous Epith Cells Many per lpf (None-Few) H 03/11/17 16:55 Urine Bacteria Many per hpf (None-Few) H 03/11/17 16:55 Hyaline Casts None Seen per lpf (None-Few) 03/11/17 16:55 Ur Culture Indicated? YES (NO) A 03/11/17 16:55 Consult Discharge Plan - Plan Referrals: Low Olmstead DO [Primary Care Provider] -
--- NOTE | 2017-03-13 16:46 | Physician Discharge Referral ---
Home Health/Hosp Referral Info Transfer to: Home Health Provider in Charge Post Discharge: PCP - Diagnosis (1) HTN (hypertension) Priority: Secondary Status: Chronic (2) COPD (chronic obstructive pulmonary disease) Priority: Secondary Status: Chronic (3) Hyperlipemia Priority: Secondary Status: Chronic (4) Tobacco abuse Priority: Secondary Status: Acute (5) DVT prophylaxis Priority: Secondary Status: Acute (6) Anxiety attack Priority: Primary Status: Acute - Respiratory Orders Smoking Cessation: Smoking cessation has been advised. For more information, call the [place] Tobacco Quit Line at 8-657-FSCU-NOW. - Services Needed Following services are medically necessary services: Nursing, Home Health Aide, Physical Therapy, Occupational Therapy - Transfer Medications Prescriptions: Ciprofloxacin [Cipro] 250 mg PO BID #4 tablet Home Medications: Aspirin 81 mg PO DAILY 02/08/15 [History] Atorvastatin [Lipitor] 10 mg PO HS 02/08/15 [History] Docusate [Colace] 100 mg PO DAILY PRN 02/08/15 [History] Budesonide/Formoterol 160/4.5 [Symbicort 160/4.5] 2 puff IH BIDR 02/11/15 [ History] Albuterol Sulfate [Albuterol Inhaler] 2 puff IH Q4HR PRN #1 hfa.aer.ad 04/17/16 [Rx] Citalopram [CeleXA] 20 mg PO DAILY 09/09/16 [History] Gabapentin [Neurontin] 300 mg PO TID 09/09/16 [History] HydrOXYzine Pamoate [Vistaril] 50 mg PO Q6H PRN 09/09/16 [History] HYDROcodone/Acet 10/325 mg [[place] 10-325 mg] 1 tab PO Q6H PRN 03/11/17 [History] Lisinopril [Zestril] 10 mg PO DAILY 03/11/17 [History] Naproxen Sodium [Aleve] 220 mg PO Q12H PRN 03/11/17 [History] Quetiapine Fumarate [Seroquel] 50 mg PO BID 03/11/17 [History] Ciprofloxacin [Cipro] 250 mg PO BID #4 tablet 03/13/17 [Rx] Allergies/Adverse Reactions: 3 Allergy/AdvReac Type Severity Reaction Status Date / Time codeine Allergy UNKNOWN Verified 03/11/17 15:25 REACTION Penicillins Allergy UNKNOWN Verified 03/11/17 15:25 REACTION Certification: Further, I certify that my clinical findings support that this patient is homebound (i.e. absences from home require considerable and taxing effort and are for medical reasons or mosque services or infrequently or short duration when for other reasons) because: Homebound Reason: Patient requires assistance of a person or device to safely leave home Attestation: My signature below is to certify that this patient is under my care and that I, or nurse practitioner, or a physician's academic affairs assistant working with me, has a face-to -face encounter with this patient.
[2017-03-13] MEDS ORDERED: FLUARIX QUAD 2017-18 36MOS UP/PF 0.5 ML SYRINGE IM ONE (17:34)
--- NOTE | 2017-03-15 08:24 | Venous Imaging Report ---
LE Venous Duplex Patient Name:Miracle Cobos Order Number:[id number] Procedure Date:03/11/2017 Date:2Age:77 yrs Gender:Female Location:[facility] ED Room #: ER06 Welder Manufacture:Bella Davenport RDCS, RVT Referring MD:Raul Rosales DO Reading MD:Kolton Pa MD Primary Indications:Swelling of limb Secondary Indications: Impressions: Right lower extremity: normal superficial and deep exam. Recommendations: Preliminary given to Dr Rosales in ED. Findings Venous Duplex Results: Right: Venous imaging of the lower extremity reveals full patency and normal vessel compressibility of the right distal iliac, right common femoral, right superficial femoral, right popliteal, right posterior tibial, right peroneal, right great saphenous and right lesser saphenous. Doppler signals in the evaluated veins were normal. Lower Extremity Venous Duplex Side Vein Compress Spontaneous Flow Augment Diameter (cm) Depth (cm) Right Distal Iliac Normal Yes Phasic Yes Right Common Femoral Normal Yes Phasic Yes Right Superficial Femoral Normal Yes Phasic Yes Right Popliteal Normal Yes Phasic Yes Right Posterior Tibial Normal Yes Phasic Yes Right Peroneal Normal Yes Phasic Yes Right Great Saphenous Normal Yes Phasic Yes Right Lesser Saphenous Normal Yes Phasic Yes Updated by Kolton Pa MD on 03/13/2017 8:44:22 AM electronically signed on 03/13/2017 8:44:33 AM with status of Final
--- NOTE | 2017-03-15 08:35 | Electrocardiograph Report ---
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
== END 2017-03-13 19:30 | disposition home health service (06) ==
LOC: 2NENU 14:58 → EMEROO 14:58 → 2NENU 19:48
PROVIDERS: ADMIT Nurse Practitioner; ATTEND Internal Medicine

== ENCOUNTER 2017-05-01 21:00 | Observation (INO) ==
[2017-05-01] MEDS ORDERED: Ipratropium/Albuterol Neb 3 ML IH ONE (21:08)
[2017-05-01] MEDS ORDERED: methylPREDNISolone 125 MG/2 ML VIAL IVP ONE (21:09)
[2017-05-01 21:37] LABS: Bilirubin,Urine Negative (Negative); Blood,Urine Negative (Negative); Clarity,Urine Clear (Clear); Color,Urine Yellow (Yellow); Glucose,Urine (UA) Normal (Normal); Ketones,Urine Negative (Negative); Leukocyte Esterase,Urine Negative (Negative); Nitrite,Urine Negative (Negative); Protein,Urine 30 mg/dL (Neg-Trace); Specific Gravity,Urine 1.022 (1.010-1.025); Urobilinogen,Urine Normal (Normal)
[2017-05-01 21:39] LABS: Basophils % 0.3 %; Hematocrit 43.2 % (35.3-44.9); Hemoglobin 14.4 g/dL (11.5-15.4); Immature Granulocytes % 0.8 % (0-4); Lymphocytes % 7.4 %; Mean Corpuscular HGB Conc 33.3 g/dL (31.6-35.5); Mean Corpuscular Volume 86.9 fL (83.0-100.0); Mean Platelet Volume 9.5 fL (9.4-12.4); Monocytes # 0.2 K/mcL (0.0-1.3); Monocytes % 1.3 %; Neutrophils # 12.1 K/mcL (1.6-8.9); Platelet Count 250 K/mcL (140-400); Red Blood Count 4.97 M/mcL (3.82-4.97); Red Cell Distribution Width 13.1 % (11.5-14.5); Segmented Neutrophils % 90.2 %
[2017-05-01 21:40] LABS: Bacteria,Urine None Seen per hpf (None-Few); Hyaline Casts,Urine None Seen per lpf (None-Few); RBC,Urine 0-3 per hpf (0-3); Squamous Epithelial Cell,Urine Many per lpf (None-Few); WBC,Urine 0-3 per hpf (0-3)
[2017-05-01 21:51] LABS: Calcium 9.8 mg/dL (8.6-10.8); Potassium 4.6 mEq/L (3.5-4.5)
--- NOTE | 2017-05-01 21:52 | Emergency Department Note ---
Disposition Clinical Impression: Acute exacerbation of chronic obstructive airways disease Disposition: Admitted As Inpatient Condition: Good Referrals: Adriane Deleon MD [Primary Care Provider] - Forms: ED Satisfaction Letter Time of Disposition: 22:30 General Adult HPI - General Chief complaint: ED Shortness of Breath/Dyspnea Stated complaint: Cough Time Seen by Provider: 05/01/17 21:10 Source: EMS Limitations: no limitations Nursing Notes Reviewed: Yes Vital Signs Reviewed: Yes - History of Present Illness HPI Narrative: 77-year-old female presents to the emergency department as a bounce back from the urgent care after being treated for pneumonia with Levaquin. Patient has a past medical history of COPD, hypertension, hyperlipidemia. Patient states that she has had increasing cough, sputum production or last 3 days. Patient states that she has myalgias all over. Patient is also complaining of abdominal pain. Pain Scale: 0 - Related Data Home Medications Medication Instructions Recorded Confirmed Aspirin 81 mg PO DAILY 02/08/15 03/11/17 Atorvastatin [Lipitor] 10 mg PO HS 02/08/15 03/11/17 Docusate [Colace] 100 mg PO DAILY PRN 02/08/15 03/11/17 Budesonide/Formoterol 160/4.5 2 puff IH BIDR 02/11/15 03/11/17 [Symbicort 160/4.5] Citalopram [CeleXA] 20 mg PO DAILY 09/09/16 03/11/17 Gabapentin [Neurontin] 300 mg PO TID 09/09/16 03/11/17 HydrOXYzine Pamoate [Vistaril] 50 mg PO Q6H PRN 09/09/16 03/11/17 HYDROcodone/Acet 10/325 mg [[place] 1 tab PO Q6H PRN 03/11/17 03/11/17 10-325 mg] Lisinopril [Zestril] 10 mg PO DAILY 03/11/17 03/11/17 Naproxen Sodium [Aleve] 220 mg PO Q12H PRN 03/11/17 03/11/17 Quetiapine Fumarate [Seroquel] 50 mg PO BID 03/11/17 03/11/17 Previous Rx's Medication Instructions Recorded Albuterol Sulfate [Albuterol 2 puff IH Q4HR PRN #1 hfa.aer.ad 04/17/16 Inhaler] Ciprofloxacin [Cipro] 250 mg PO BID #4 tablet 03/13/17 Benzonatate [Tessalon] 100 mg PO TID #15 capsule 04/30/17 Guaifenesin [Mucinex] 600 mg PO BID #30 tab.er.12h 04/30/17 PredniSONE [Deltasone] 20 mg PO DAILY #12 tablet 04/30/17 levoFLOXacin [Levaquin] 500 mg PO DAILY #10 tablet 04/30/17 Allergies Allergy/AdvReac Type Severity Reaction Status Date / Time codeine Allergy UNKNOWN Verified 03/11/17 15:25 REACTION Penicillins Allergy UNKNOWN Verified 03/11/17 15:25 REACTION All systems ED: reviewed and negative except as stated. Review of Systems: As Per HPI Constitutional: Reports: fever Respiratory: Reports: cough, dyspnea, sputum production Gastrointestinal: Reports: abdominal pain. Denies: nausea, vomiting Musculoskeletal: Reports: myalgia Integumentary: Denies: rash Past Medical History - Past Medical History Medical history: Reports: COPD, hyperlipidemia, hypertension, other Surgical history: Reports: non-contributory, breast surgery, , cholecystectomy, hip replacement, hysterectomy, knee replacement, other Psychiatric history: Reports: anxiety, depression - Social History Smoking Status: Current every day smoker Smokeless Tobacco Status: No Alcohol use: Reports: none Drug use: Reports: none Physical Exam General: Elderly, 77 year old female, angry appearing Head: autraumatic, EOMI, no conjuncitval pallor, no scleral icterus, Mouth: oral mucous membranes moist Neck: neck soft, trachea midline Chest:: Equal chest wall rise Lungs: Diffuse wheezing and rhonchi bilaterally Heart: normal heart sounds, normal rate and rhythm, Abdomen: soft, diffuse generalized tenderness Lower Extremities: no pedal edema, calves non-tender Integumentary: Skin warm, dry, and intact Neuro: Alert and oriented to person place and time Psych: Easily irritable - General Limitations: no limitations General appearance: alert Course Vital Signs Temperature 98.8 F 05/01/17 21:03 Pulse Rate 79 05/01/17 21:03 Respiratory Rate 18 05/01/17 21:03 Blood Pressure 153/81 05/01/17 21:03 O2 Sat by Pulse Oximetry 94 05/01/17 21:03 Temperature 98.8 F 05/01/17 21:03 Pulse Rate 79 05/01/17 21:03 Respiratory Rate 16 05/01/17 22:05 Blood Pressure 153/81 05/01/17 21:03 O2 Sat by Pulse Oximetry 93 05/01/17 22:05 Oxygen Delivery Oxygen Delivery Room Air Medical Decision Making - MDM Narrative Medical decision making narrative: 77-year-old female presents to the emergency department with worsening shortness of breath, sputum production, cough over the last 3 days. Patient has a past medical history COPD. She was recently prescribed Levaquin. This time, we are managing this patient's COPD exacerbation. We gave this patient 3 duo nebs in the emergency department as well as 125 mg Solu-Medrol IV. Patient does have a mild leukocytosis here in the emergency department. It is 13.4. Patient's labs are otherwise unremarkable. Chest x-ray does not reveal evidence of any acute cardiopulmonary disease. Electrocardiogram does not reveal any ischemic ST changes. BNP is not elevated. Troponin is not elevated as well. At this time, patient is currently 96% on 6 L of oxygen while receiving her do a nebs. This patient was resting more comfortably after administration medications. I spoke with the hospitalist and admitted patient admitted. I also spoke with the patient at bedside and discussed the plan with her she was in agreement. Patient was not in any acute distress and hemodynamically stable at time of admission. Vital Signs Temperature 98.8 F 05/01/17 21:03 Pulse Rate 79 05/01/17 21:03 Respiratory Rate 18 05/01/17 21:03 Blood Pressure 153/81 05/01/17 21:03 O2 Sat by Pulse Oximetry 94 05/01/17 21:03 Temperature 98.8 F 05/01/17 21:03 Pulse Rate 79 05/01/17 21:03 Respiratory Rate 16 05/01/17 22:05 Blood Pressure 153/81 05/01/17 21:03 O2 Sat by Pulse Oximetry 93 05/01/17 22:05 Oxygen Delivery Oxygen Delivery Room Air Chest X-Ray 05/01/17 21:08 IMPRESSION: No evidence of acute cardiopulmonary disease. D/ / Kenny Nelson MD / Kenny Nelson MD Interpreting Provider: Kenny Nelson MD Abdomen/Pelvis CT 05/01/17 21:17 IMPRESSION: Bilateral nephrolithiasis. Otherwise negative noncontrast study. D/ / Annette Todd Cha, MD / Annette Todd Cha, MD Interpreting Provider: Annette Todd Cha, MD Chest X-Ray 05/01/17 21:08 IMPRESSION: No evidence of acute cardiopulmonary disease. D/ / Kenny Nelson MD / Kenny Nelson MD Interpreting Provider: Kenny Nelson MD - Medical Records Medical records reviewed: Yes I reviewed the patient's medical records. - Lab Data Lab results reviewed: Yes I reviewed the patient's lab results. Result diagrams: 05/01/17 21:31 05/01/17 21:31 Lab Results 05/01/17 05/01/17 05/01/17 Range/Units 21:27 21:31 21:31 WBC 13.4 H (4.3-11.1) K/mcL RBC 4.97 (3.82-4.97) M/mcL Hgb 14.4 (11.5-15.4) g/dL Hct 43.2 (35.3-44.9) % MCV 86.9 (83.0-100.0) fL MCH 29.0 (28.0-33.3) pg MCHC 33.3 (31.6-35.5) g/dL RDW 13.1 (11.5-14.5) % Plt Count 250 (140-400) K/mcL MPV 9.5 (9.4-12.4) fL Immature Gran % 0.8 (0-4) % Seg Neutrophils % 90.2 % Lymphocytes % 7.4 % Monocytes % 1.3 % Eosinophils % 0.0 % Basophils % 0.3 % Neutrophils # 12.1 H (1.6-8.9) K/mcL Lymphocytes # 1.0 (0.6-4.6) K/mcL Monocytes # 0.2 (0.0-1.3) K/mcL Eosinophils # 0.0 (0.0-0.6) K/mcL Basophils # 0.0 (0.0-0.2) K/mcL Sodium 137 (136-145) mEq/L Potassium 4.6 H (3.5-4.5) mEq/L Chloride 103 (98-109) mEq/L Carbon Dioxide 22 (19-29) mEq/L BUN 25 H (7-20) mg/dL Creatinine 1.21 H (0.57-1.11) mg/dL Est GFR ( Amer) 53 L (> 60) Est GFR (Non-Af Amer) 43 L (> 60) BUN/Creatinine Ratio 21 (6-26) Glucose 147 H (70-99) mg/dL Calculated Osmolality 291 (280-300) Lactic Acid (0.5-2.2) mmol/L Calcium 9.8 (8.6-10.8) mg/dL Troponin I (0-0.03) ng/mL B-Natriuretic Peptide (0-100) pg/mL Urine Color Yellow (Yellow) Urine Clarity Clear (Clear) Urine pH 6.0 (5.0-8.0) pH Units Ur Specific [place] 1.022 (1.010-1.025) Urine Protein 30 H (Neg-Trace) mg/dL Urine Glucose (UA) Normal (Normal) mg/dL Urine Ketones Negative (Negative) mg/dL Urine Blood Negative (Negative) Urine Nitrite Negative (Negative) Urine Bilirubin Negative (Negative) Urine Urobilinogen Normal (Normal) mg/dL Ur Leukocyte Esterase Negative (Negative) Urine Microscopic RBC 0-3 (0-3) per hpf Urine Microscopic WBC 0-3 (0-3) per hpf Ur Squamous Epith Cells Many H (None-Few) per lpf Urine Bacteria None Seen (None-Few) per hpf Hyaline Casts None Seen (None-Few) per lpf Ur Culture Indicated? NO (NO) 05/01/17 05/01/17 05/01/17 Range/Units 21:31 21:31 21:31 WBC (4.3-11.1) K/mcL RBC (3.82-4.97) M/mcL Hgb (11.5-15.4) g/dL Hct (35.3-44.9) % MCV (83.0-100.0) fL MCH (28.0-33.3) pg MCHC (31.6-35.5) g/dL RDW (11.5-14.5) % Plt Count (140-400) K/mcL MPV (9.4-12.4) fL Immature Gran % (0-4) % Seg Neutrophils % % Lymphocytes % % Monocytes % % Eosinophils % % Basophils % % Neutrophils # (1.6-8.9) K/mcL Lymphocytes # (0.6-4.6) K/mcL Monocytes # (0.0-1.3) K/mcL Eosinophils # (0.0-0.6) K/mcL Basophils # (0.0-0.2) K/mcL Sodium (136-145) mEq/L Potassium (3.5-4.5) mEq/L Chloride (98-109) mEq/L Carbon Dioxide (19-29) mEq/L BUN (7-20) mg/dL Creatinine (0.57-1.11) mg/dL Est GFR ( Amer) (> 60) Est GFR (Non-Af Amer) (> 60) BUN/Creatinine Ratio (6-26) Glucose (70-99) mg/dL Calculated Osmolality (280-300) Lactic Acid 1.1 (0.5-2.2) mmol/L Calcium (8.6-10.8) mg/dL Troponin I 0.00 (0-0.03) ng/mL B-Natriuretic Peptide 41 (0-100) pg/mL Urine Color (Yellow) Urine Clarity (Clear) Urine pH (5.0-8.0) pH Units Ur Specific [place] (1.010-1.025) Urine Protein (Neg-Trace) mg/dL Urine Glucose (UA) (Normal) mg/dL Urine Ketones (Negative) mg/dL Urine Blood (Negative) Urine Nitrite (Negative) Urine Bilirubin (Negative) Urine Urobilinogen (Normal) mg/dL Ur Leukocyte Esterase (Negative) Urine Microscopic RBC (0-3) per hpf Urine Microscopic WBC (0-3) per hpf Ur Squamous Epith Cells (None-Few) per lpf Urine Bacteria (None-Few) per hpf Hyaline Casts (None-Few) per lpf Ur Culture Indicated? (NO) - Radiology Data Radiology results reviewed: Yes I reviewed the patient's radiology results. - EKG Data EKG #1 EKG attestation: Yes I reviewed and interpreted this EKG. EKG results narrative: 21:40 Ventricular rate 76 bpm, GA interval 202 ms, QRS duration 96 seconds, QT 371 ms , QTC 402 ms, normal axis. Sinus rhythm with a ventricular rate of 76 bpm. There are no ST segment changes that are consistent with ischemia. This electrocardiogram is none different than the previous one performed on March 11, 2017. Attestation Statement - Attestation Attestation: I, Demian Schneider DO, examined this patient [id number] and my medical decision-making was reviewed with Dr. John Varela, Resident Physician. I agree with the documented findings, disposition and treatment plan as described except to the extent set forth below. Please see my progress notes for details. 77-year-old female presents to emergency room with complaint of cough productive sputum and shortness of breath. She has baseline COPD with emphysema and is unable to confirm or deny whether she uses oxygen at home. Currently she denies any chest pain headache vision changes nausea vomiting or diarrhea. Physical exam is concerning for course on a breath sounds bilaterally with intermittent wheezing. Patient also has some accessories as well as per Dr. roth all by looking at the bedside. Heart is regular but no murmurs noted. Abdomen is not distended but she does have abdominal pain and discomfort on palpation anywhere [place] abdominal wall. No guarding no rigidity and no peritoneal symptoms noted at this time. No signs of pitting edema. Patient was able to a prior to coming in. Patient denies any fall or trauma this point. Concern is noted for pulmonary source including COPD exacerbation versus chronic bronchitis versus pneumonia. She has been on antibiotics and breathing treatments at home without any resolution of the symptoms. He is followed at this time as well as repeat chest x-ray and CT abdomen on urinalysis and screening laboratory workup. EKG shows sinus rhythm with no acute signs of ST segment elevation or abnormality. Patient will most likely need admission for definitive evaluation treatment of what appears to be COPD exacerbation with bronchitis. IV antibiotics to be ordered as needed. Disposition to be determined. See detailed documentation of physical exam, medical intervention, medical decision-making and disposition in the resident physician's note. 2225 Patient signed out to the nighttime position as well as the admission process being completed with [facility]. Patient is admitted at this time. Appears to be COPD exacerbation failed outpatient treatment.
--- NOTE | 2017-05-01 23:15 | Internal Med History&Physical ---
Date of Encounter: 05/01/17 Time of Encounter: 23:12 Assessment and Plan (1) COPD exacerbation Current visit: Yes Status: Acute Mild COPD exacerbation. Will patient on steroid nebulizer treatment and azithromycin. X-ray shows no evidence of pneumonia. Patient is focal. Observation admission. She will get heparin and famotidine for DVT and peptic ulcer disease prophylaxis respectively Internal Medicine - H&P: HPI Chief complaint: sob History of present illness: Ms. Cobos is a 77 year old female with history of COPD presents from home with the main complaining of shortness of breath. For the past 3 days patient has been short of breath with any minimal exertion in addition to nonproductive cough and chest wheezing. Patient denies any fevers chills. Patient denies any chest pain. No lower extremity swelling orthopnea or paroxysmal nocturnal dyspnea. Patient was started today on levofloxacin and prednisone. She has noticed worsening over symptoms throughout the day and decided to come to emergency room for further evaluation. Past Med Surg Social Fam HX - Past Medical History Medical history: COPD, hyperlipidemia, hypertension, other Psychiatric history: anxiety, depression - Past Surgical History Surgical History: non-contributory, breast surgery, , cholecystectomy, hip replacement, hysterectomy, knee replacement, other - Social History Smoking Status: Current every day smoker Smokeless Tobacco Status: No Alcohol use: none Drug use: none - Family History Father Living Status: Hx Family Endocrine Disorder: Yes (DM) Mother Living Status: Hx Family Cardiac Disorders: No Hx Family Respiratory Disorders: Yes Hx Family Cancer: No Hx Family GI Disorders: No Hx Family Endocrine Disorder: No Hx Family Neuromuscular Disorders: No Hx Family Neurologic Disorders: No Hx Family HEENT Disorders: No Hx Family Autoimmune Disorders: No Internal Medicine - H&P: Meds Aspirin 81 mg PO DAILY 02/08/15 [History] Atorvastatin [Lipitor] 10 mg PO HS 02/08/15 [History] Docusate [Colace] 100 mg PO DAILY PRN 02/08/15 [History] Budesonide/Formoterol 160/4.5 [Symbicort 160/4.5] 2 puff IH BIDR 02/11/15 [ History] Albuterol Sulfate [Albuterol Inhaler] 2 puff IH Q4HR PRN #1 hfa.aer.ad 04/17/16 [Rx] Citalopram [CeleXA] 20 mg PO DAILY 09/09/16 [History] Gabapentin [Neurontin] 300 mg PO TID 09/09/16 [History] HydrOXYzine Pamoate [Vistaril] 50 mg PO Q6H PRN 09/09/16 [History] HYDROcodone/Acet 10/325 mg [[place] 10-325 mg] 1 tab PO Q6H PRN 03/11/17 [History] Lisinopril [Zestril] 10 mg PO DAILY 03/11/17 [History] Naproxen Sodium [Aleve] 220 mg PO Q12H PRN 03/11/17 [History] Quetiapine Fumarate [Seroquel] 50 mg PO BID 03/11/17 [History] Ciprofloxacin [Cipro] 250 mg PO BID #4 tablet 03/13/17 [Rx] Benzonatate [Tessalon] 100 mg PO TID #15 capsule 04/30/17 [Rx] Guaifenesin [Mucinex] 600 mg PO BID #30 tab.er.12h 04/30/17 [Rx] PredniSONE [Deltasone] 20 mg PO DAILY #12 tablet 04/30/17 [Rx] levoFLOXacin [Levaquin] 500 mg PO DAILY #10 tablet 04/30/17 [Rx] 3 Allergy/AdvReac Type Severity Reaction Status Date / Time codeine Allergy UNKNOWN Verified 03/11/17 15:25 REACTION Penicillins Allergy UNKNOWN Verified 03/11/17 15:25 REACTION All Systems PM: A 10-system review of systems was performed and is negative for pertinent findings except as documented above in the HPI. Review of systems: 10 point review of systems is negative except for HPI - Constitutional Vitals: Temp Pulse Resp BP Pulse Ox 98.8 F 79 18 146/90 93 05/01/17 21:03 05/01/17 21:03 05/01/17 23:05 05/01/17 23:05 05/01/17 22:05 Exam: Gen.: patient is alert oriented times 3 cardiac: normal S1 S2 no additional sounds or murmurs chest: diminished air entry abdomen soft nontender nondistended normal bowel sounds lower extremity no swelling. Neuro: no new focal deficits Internal Med - H&P Results - Labs CBC & Chem 7: 05/01/17 21:31 05/01/17 21:31
[2017-05-02] MEDS: Azithromycin 500 MG in D5% in Water 250 ML IVPB SCH (00:04)
[2017-05-02] MEDS: Gabapentin 300 MG CAPSULE PO SCH ×4 (01:14→22:34)
[2017-05-02] MEDS: Ipratropium/Albuterol Neb 3 ML IH SCH ×2 (03:33→10:43)
[2017-05-02 04:16] LABS: Basophils % 0.3 %; Immature Granulocytes % 0.9 % (0-4); Lymphocytes # 0.5 K/mcL (0.6-4.6); Lymphocytes % 4.3 %; Mean Corpuscular HGB Conc 33.3 g/dL (31.6-35.5); Mean Corpuscular Hemoglobin 28.8 pg (28.0-33.3); Mean Corpuscular Volume 86.5 fL (83.0-100.0); Mean Platelet Volume 10.3 fL (9.4-12.4); Monocytes # 0.1 K/mcL (0.0-1.3); Monocytes % 0.7 %; Neutrophils # 10.2 K/mcL (1.6-8.9); Platelet Count 229 K/mcL (140-400); Red Blood Count 4.51 M/mcL (3.82-4.97); Segmented Neutrophils % 93.8 %
[2017-05-02 04:41] LABS: Calcium 9.4 mg/dL (8.6-10.8); Magnesium 1.9 mg/dL (1.6-2.6)
[2017-05-02 04:51] LABS: Potassium 3.5 mEq/L (3.5-4.5)
[2017-05-02] MEDS: *HR* Heparin 5,000 UNIT/ML VIAL SQ SCH ×2 (05:55→16:32)
[2017-05-02] MEDS: Aspirin 81 MG TAB.CHEW PO SCH (07:21)
[2017-05-02] MEDS: Famotidine 20 MG TABLET PO SCH ×2 (07:21→22:34)
[2017-05-02] MEDS: predniSONE 20 MG TABLET PO SCH (07:22)
[2017-05-02] MEDS: 0.9 % Sodium Chloride 1,000 ML IVC SCH (07:28)
[2017-05-02] MEDS ORDERED: Levofloxacin 750 MG/150 ML 750 MG/150 ML BAG IVPB SCH (09:00)
[2017-05-02] MEDS ORDERED: Dextrose Gel 15 GM PO PRN ×2 (09:33)
[2017-05-02] MEDS ORDERED: D5% in Water 1,000 ML IVC PRN (09:33)
[2017-05-02] MEDS ORDERED: *HR* Dextrose 50 % in Water (Syg) 50 ML SYRINGE IVP PRN (09:33)
[2017-05-02] MEDS: Insulin LISPRO 300 UNITS/3 ML VIAL SQ SCH ×4 (10:48→22:40)
--- NOTE | 2017-05-02 12:07 | Internal Med Progress Note ---
Date of Encounter: 05/02/17 Time of Encounter: 08:15 - Assessment and plan (1) COPD exacerbation Current Visit: Yes Status: Acute Assessment and plan: Mild COPD exacerbation. X-ray shows no evidence of pneumonia. Pt states that she feels better than she did last night, but is not back to her baseline. Ronchi and wheezing heard throughout post lung bhat. Productive cough with yellow, thick sputum. CXR negative. Continue Duonebs Continue Zithromax IV Continue Prednisone po Mucinex 600mg po bid Albuterol neb q2h prn Chest X-Ray 05/01/17 21:08 IMPRESSION: No evidence of acute cardiopulmonary disease. D/ / Kenny Nelson MD / Kenny Nelson MD Interpreting Provider: Kenny Nelson MD (2) Acute kidney injury Current Visit: Yes Status: Acute Assessment and plan: Sr Cr 1.24 GFR 42. Pt with no history of CKD. Monitor labs and avoid nephrotoxins Gentle IV hydration, 0.9NS at 60ml/hour. (3) HTN (hypertension) Current Visit: Yes Status: Chronic Assessment and plan: Well controlled. Continue home medication. Qualifiers: Hypertension type: essential hypertension Qualified Code(s): I10 - Essential (primary) hypertension (4) Hyperlipemia Current Visit: Yes Status: Chronic Assessment and plan: Continue Lipitor. Qualifiers: Hyperlipidemia type: mixed hyperlipidemia Qualified Code(s): E78.2 - Mixed hyperlipidemia (5) Tobacco abuse Current Visit: Yes Status: Chronic Assessment and plan: Pt states that she smokes 1 PPD. Denies need for nicotine patch here. States that she does not want to stop smoking after discharge and that she does not need any assistance. (6) DVT prophylaxis Current Visit: Yes Status: Acute Assessment and plan: Heparin SQ daily, encourage pt to ambulate to and from bathroom and sit in chair. - Time Spent With Patient less than 15 minutes - Subjective Interval history: Pt was seen and assessed at 0815 this a.m. She denies chest pain, n/v/d, dizziness, or abd pain. She states that she feels better than she did last night , but not back to baseline yet. Pt states that she still smokes 1 PPD and that she is not ready to quit and does not want any assistance. - Constitutional Vitals: Temp Pulse Resp BP Pulse Ox 97.8 F 94 16 107/67 92 05/02/17 10:00 05/02/17 10:00 05/02/17 10:44 05/02/17 10:00 05/02/17 10:44 General appearance: Present: cooperative, A&O X 3, pleasant, no acute distress, answers questions appropriately - Head Head exam: Present: atraumatic, normal inspection, normocephalic - Eye Eye exam: Present: normal appearance, conjuntiva pink, sclera anicteric - Neck Neck exam general surgery: Present: normal inspection, supple, trachea midline. Absent: lymphadenopathy - Respiratory Respiratory exam: Present: decreased breath sounds, CTAB, rhonchi, wheezes. Absent: accessory muscle use, chest wall tenderness, rales, respiratory distress - Cardiovascular Cardiovascular exam: Present: RRR, +S1, +S2. Absent: diastolic murmur, gallop, rubs, systolic murmur - GI/Abdominal GI/Abdominal exam: Present: normal bowel sounds, soft. Absent: distended, hepatomegaly, tenderness - Extremities Exam Extremities exam: Present: normal capillary refill, warm, radial pulses palpable and symmetrical. Absent: calf tenderness, cyanotic, pedal edema, tenderness - Neurological Exam Neurological exam: Present: alert, oriented X3, no focal deficits. Absent: facial droop, speech deficit - Psychiatric Psychiatric exam: Present: flat affect - Skin Skin exam: Present: dry, intact, normal color, warm. Absent: rash Internal Medicine: Result - Labs CBC & Chem 7: 05/02/17 02:56 05/02/17 02:56 Labs: Short CBC 05/02/17 Range/Units 02:56 WBC 10.9 (4.3-11.1) K/mcL Hgb 13.0 (11.5-15.4) g/dL Hct 39.0 (35.3-44.9) % Plt Count 229 (140-400) K/mcL Neutrophils # 10.2 H (1.6-8.9) K/mcL BMP 05/02/17 02:56 Sodium 134 L Potassium 3.5 D Chloride 101 Carbon Dioxide 23 BUN 27 H Creatinine 1.24 H Glucose 277 H Calcium 9.4 Consult Discharge Plan - Plan Referrals: Adriane Deleon MD [Primary Care Provider] -
[2017-05-02] MEDS ORDERED: Albuterol 2.5 MG/3 ML NEBULIZER IH PRN (12:12)
[2017-05-02] MEDS: Benzonatate 100 MG CAPSULE PO PRN (15:19)
[2017-05-02] MEDS ORDERED: Levalbuterol Neb 1.25 MG/3 ML ONE (15:39)
[2017-05-02] MEDS: Levalbuterol Neb 1.25 MG/3 ML IH SCH ×2 (16:20→22:46)
--- NOTE | 2017-05-02 18:09 | Electrocardiograph Report ---
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
[2017-05-03] MEDS: Azithromycin 500 MG in D5% in Water 250 ML IVPB SCH ×2 (00:02→23:21)
[2017-05-03] MEDS: Benzonatate 100 MG CAPSULE PO PRN ×2 (00:08→04:51)
[2017-05-03] MEDS: Levalbuterol Neb 1.25 MG/3 ML IH SCH ×4 (03:46→21:55)
[2017-05-03] MEDS: 0.9 % Sodium Chloride 1,000 ML IVC SCH ×3 (04:49→23:21)
[2017-05-03 05:18] LABS: Basophils % 0.2 %; Hematocrit 38.1 % (35.3-44.9); Hemoglobin 12.6 g/dL (11.5-15.4); Immature Granulocytes % 1.2 % (0-4); Lymphocytes # 1.4 K/mcL (0.6-4.6); Lymphocytes % 8.2 %; Mean Corpuscular HGB Conc 33.1 g/dL (31.6-35.5); Mean Corpuscular Hemoglobin 28.9 pg (28.0-33.3); Mean Corpuscular Volume 87.4 fL (83.0-100.0); Mean Platelet Volume 10.2 fL (9.4-12.4); Monocytes # 1.2 K/mcL (0.0-1.3); Monocytes % 7.1 %; Neutrophils # 14.4 K/mcL (1.6-8.9); Platelet Count 267 K/mcL (140-400); Red Blood Count 4.36 M/mcL (3.82-4.97); Red Cell Distribution Width 13.1 % (11.5-14.5); Segmented Neutrophils % 83.3 %
[2017-05-03 05:27] LABS: Calcium 8.9 mg/dL (8.6-10.8); Potassium 4.2 mEq/L (3.5-4.5)
[2017-05-03] MEDS: *HR* Heparin 5,000 UNIT/ML VIAL SQ SCH ×2 (05:53→18:06)
[2017-05-03] MEDS: Insulin LISPRO 300 UNITS/3 ML VIAL SQ SCH ×4 (08:27→21:18)
[2017-05-03] MEDS: Gabapentin 300 MG CAPSULE PO SCH ×3 (09:03→21:20)
[2017-05-03] MEDS: predniSONE 20 MG TABLET PO SCH (09:03)
[2017-05-03] MEDS: Famotidine 20 MG TABLET PO SCH ×2 (09:04→21:21)
[2017-05-03] MEDS: Aspirin 81 MG TAB.CHEW PO SCH (09:04)
[2017-05-03] MEDS: Loratadine 10 MG TABLET PO SCH (09:04)
--- NOTE | 2017-05-03 10:41 | Discharge Summary ---
Date of Encounter: 05/03/17 Time of Encounter: 08:35 - Discharge Diagnosis (1) COPD exacerbation Priority: Primary Status: Acute Comments: Mild COPD exacerbation. X-ray shows no evidence of pneumonia. Pt states that she feels some better, but is no c/o rhionorrhea today and states that she feels weak. Lungs are clear and diminished throughout. Productive cough improved. CXR negative. Pt will continue Zithromax po after discharge, will continue prednisone taper, Mucinex po bid, Claritin daily Chest X-Ray 05/01/17 21:08 IMPRESSION: No evidence of acute cardiopulmonary disease. D/ / Kenny Nelson MD / Kenny Nelson MD Interpreting Provider: Kenny Nelson MD (2) Acute kidney injury Priority: Secondary Status: Acute Comments: Sr Cr has remained around 1.20s and R in the low 40s since arrival, despite IVF hydration. No JOSÉ LUIS or diuretics. Retroperitoneal US ordered this morning, as of right now 17:19, and has not in completed. Will wait on results prior to discharge. (3) HTN (hypertension) Priority: Secondary Status: Chronic Comments: Blood pressure has been well controlled. Continue home medications. Qualifiers: Hypertension type: essential hypertension Qualified Code(s): I10 - Essential (primary) hypertension (4) Hyperlipemia Priority: Secondary Status: Chronic Comments: Continue home medications. Qualifiers: Hyperlipidemia type: mixed hyperlipidemia Qualified Code(s): E78.2 - Mixed hyperlipidemia (5) Tobacco abuse Priority: Secondary Status: Chronic Comments: Pt states that she does not want to smoke and states that she will try to quit after she is discharged. She refuses rx for patches, gum, or po medications. (6) DVT prophylaxis Priority: Secondary Status: Acute Comments: Heparin SQ (7) Weakness Priority: Secondary Status: Acute Comments: Pt reports that she feels weak, primary RN states that she is unable to get up out of bed independently and that she is a fall risk. PT/OT consult in and pending. (8) Morbid obesity with BMI of 40.0-44.9, adult Priority: Secondary Status: Chronic Comments: Chronic. Continue home medications. - Discharge Medications Prescriptions: Azithromycin 250 mg PO DAILY #4 tablet Loratadine [Claritin] 10 mg PO DAILY #30 tablet predniSONE [PredniSONE] 10 mg PO DAILY #31 tablet Home Medications: Aspirin 81 mg PO DAILY 02/08/15 [History] Atorvastatin [Lipitor] 10 mg PO HS 02/08/15 [History] Docusate [Colace] 100 mg PO DAILY PRN 02/08/15 [History] Budesonide/Formoterol 160/4.5 [Symbicort 160/4.5] 2 puff IH BIDR 02/11/15 [ History] Albuterol Sulfate [Albuterol Inhaler] 2 puff IH Q4HR PRN #1 hfa.aer.ad 04/17/16 [Rx] Gabapentin [Neurontin] 300 mg PO TID 09/09/16 [History] HydrOXYzine Pamoate [Vistaril] 50 mg PO Q6H PRN 09/09/16 [History] HYDROcodone/Acet 10/325 mg [[place] 10-325 mg] 1 tab PO Q6H PRN 03/11/17 [History] Lisinopril [Zestril] 10 mg PO DAILY 03/11/17 [History] Naproxen Sodium [Aleve] 220 mg PO Q12H PRN 03/11/17 [History] Quetiapine Fumarate [Seroquel] 50 mg PO BID 03/11/17 [History] Benzonatate [Tessalon] 100 mg PO TID #15 capsule 04/30/17 [Rx] Guaifenesin [Mucinex] 600 mg PO BID #30 tab.er.12h 04/30/17 [Rx] Azithromycin 250 mg PO DAILY #4 tablet 05/03/17 [Rx] Loratadine [Claritin] 10 mg PO DAILY #30 tablet 05/03/17 [Rx] predniSONE [PredniSONE] 10 mg PO DAILY #31 tablet 05/03/17 [Rx] Allergies/Adverse Reactions: 3 Allergy/AdvReac Type Severity Reaction Status Date / Time codeine Allergy UNKNOWN Verified 03/11/17 15:25 REACTION Penicillins Allergy UNKNOWN Verified 03/11/17 15:25 REACTION Date of admission: 05/01/17 22:59 Primary care physician: Adriane Deleon Consults: 05/01/17 23:08 Consult to Occupational Therapy [CONS] Routine Comment: Evaluate, develop and implement POC Reason for Consult: weakness Consult to Physical Therapy [CONS] Routine Comment: Evaluate, develop and implement POC Reason for Consult: weakness Discharging clinician: Klarissa Luevano Anticipated date of discharge: 05/03/17 - Patient Status Disposition: Home, Self-Care Condition: Good Functional capacity at discharge: uses cane/walker Overall status at discharge: patient is progressing back to baseline - Discharge Instructions Follow Up With: Low Olmstead DO [Resident] - - Diet and Activity Activity: ambulate only with your walker, increase activity as tolerated Diet: advance to your usual diet Interval History: Please see assessment and plan for hospital course. Hospital course: Ms. Cobos is a 77 year old female - Time Spent with Patient Total time spent providing and/or coordinating discharge services: - Constitutional Vitals: Temp Pulse Resp BP Pulse Ox 98.0 F 80 14 129/80 97 05/03/17 07:32 05/03/17 07:32 05/03/17 07:32 05/03/17 07:32 05/03/17 07:32 General appearance: Present: cooperative, A&O X 3, morbidly obese, pleasant, no acute distress, answers questions appropriately - Head Head exam: Present: atraumatic, normocephalic - Eye Eye exam: Present: normal appearance, conjuntiva pink, sclera anicteric - Neck Neck exam general surgery: Present: normal inspection, supple, trachea midline. Absent: lymphadenopathy, tenderness - Respiratory Respiratory exam: Present: decreased breath sounds, CTAB. Absent: accessory muscle use, chest wall tenderness, rales, rhonchi, wheezes - Cardiovascular Cardiovascular exam: Present: RRR, +S1, +S2. Absent: diastolic murmur, gallop, rubs, systolic murmur - GI/Abdominal GI/Abdominal exam: Present: normal bowel sounds, soft, no peritoneal signs. Absent: distended, hepatomegaly, tenderness - Extremities Exam Extremities exam: Present: warm, radial pulses palpable and symmetrical. Absent : calf tenderness, cyanotic, normal capillary refill, normal inspection, pedal edema, tenderness - Neurological Exam Neurological exam: Present: alert, oriented X3, no focal deficits. Absent: facial droop, speech deficit - Skin Skin exam: Present: dry, intact, normal color, warm. Absent: rash
[2017-05-04] MEDS: Levalbuterol Neb 1.25 MG/3 ML IH SCH ×4 (04:05→22:53)
[2017-05-04] MEDS: *HR* Heparin 5,000 UNIT/ML VIAL SQ SCH ×2 (06:37→16:37)
[2017-05-04] MEDS: Insulin LISPRO 300 UNITS/3 ML VIAL SQ SCH ×4 (08:00→20:52)
[2017-05-04] MEDS: Famotidine 20 MG TABLET PO SCH ×2 (09:08→21:06)
[2017-05-04] MEDS: predniSONE 20 MG TABLET PO SCH (09:08)
[2017-05-04] MEDS: Loratadine 10 MG TABLET PO SCH (09:08)
[2017-05-04] MEDS: Aspirin 81 MG TAB.CHEW PO SCH (09:09)
[2017-05-04] MEDS: Gabapentin 300 MG CAPSULE PO SCH ×3 (09:09→21:06)
[2017-05-04 10:41] LABS: Adenovirus Not Detected (Not Detect); Coronavirus 229E Not Detected (Not Detect); Coronavirus HKU1 Not Detected (Not Detect); Coronavirus NL63 Not Detected (Not Detect); Coronavirus OC43 Not Detected (Not Detect); Human Metapneumovirus Not Detected (Not Detect); Human Rhinovirus/Enterovirus Not Detected (Not Detect); Influenza A Subtype 2009 H1 Not Detected (Not Detect); Influenza A Untypeable Not Detected (Not Detect); Influenza B Not Detected (Not Detect); Parainfluenza Virus 1 Not Detected (Not Detect); Parainfluenza Virus 2 Not Detected (Not Detect)
[2017-05-04 10:42] LABS: Bordetella Pertussis Not Detected (Not Detect); Chlamydophila pneumoniae Not Detected (Not Detect); Mycoplasma pneumoniae Not Detected (Not Detect); Parainfluenza Virus 3 Not Detected (Not Detect); Parainfluenza Virus 4 Not Detected (Not Detect); Respiratory Syncytial Virus Not Detected (Not Detect)
[2017-05-04] MEDS: 0.9 % Sodium Chloride 1,000 ML IVC SCH (16:35)
--- NOTE | 2017-05-04 16:40 | Internal Med Progress Note ---
Date of Encounter: 05/04/17 Time of Encounter: 08:00 - Assessment and plan (1) Acute exacerbation of chronic obstructive airways disease Current Visit: Yes Status: Acute Assessment and plan: Miracle Cobos is a 37-year-old female with past medical history COPD and hypertension who presented to [facility] on 05/01/17 with complaints of shortness of breath. She was found to have COPD exacerbation and AK I. She was placed in observation status for further workup and treatment. 1. Acute COPD exacerbation: With increased shortness of breath and diffuse wheezing. CXR non-acute. Raspatory PCR negative. Symptoms slowly improving with IV ATB and steroids. Continue home O2. 2. CHLOE: Cr 1.2, baseline normal. Possibly prerenal component as patient reports little oral intake prior to admission however she has been receiving IV fluids with no improvement. Reassuring is that creatinine is stable and not rising. Continue gentle IV fluids. Recommend outpatient nephrology follow-up. 3. Leukeocytosis: WBC 17K, setting of steroid use. Lactic acid normal. No further workup at this time. 4. Hypertension: Per history. BP controlled. Continue home BP medications. Monitor BP and titrate PRN 5. DVT prophylaxis: Heparin (2) Acute kidney injury Current Visit: Yes Status: Acute (3) HTN (hypertension) Current Visit: Yes Status: Chronic Qualifiers: Hypertension type: essential hypertension Qualified Code(s): I10 - Essential (primary) hypertension - Subjective Interval history: Seen and examined at bedside. Patient is new to me, information obtained from chart review and patient report. Patient says she feels better and would like to go home today. Her respiratory status is improved per patient however I am concerned with her lung sounds and apparent dyspnea. She does complain of shortness of breath but says she significantly improved. No chest pain. She is agreeable to stay overnight. - Constitutional Vitals: Temp Pulse Resp BP Pulse Ox 98.1 F 94 16 160/94 95 05/04/17 16:28 05/04/17 16:28 05/04/17 16:28 05/04/17 16:28 05/04/17 16:28 General appearance: Present: cooperative, A&O X 3, morbidly obese, pleasant, no acute distress, answers questions appropriately - Head Head exam: Present: atraumatic, normocephalic - Eye Eye exam: Present: PERRL, conjuntiva pink, sclera anicteric Pupils: Present: PERRL - Neck Neck exam general surgery: Present: supple, trachea midline. Absent: lymphadenopathy - Respiratory Respiratory exam: Present: rales, wheezes. Absent: accessory muscle use, rhonchi - Cardiovascular Cardiovascular exam: Present: RRR, +S1, +S2. Absent: diastolic murmur, gallop, rubs, systolic murmur - GI/Abdominal GI/Abdominal exam: Present: normal bowel sounds, soft, no peritoneal signs. Absent: distended, tenderness - Extremities Exam Extremities exam: Present: warm, radial pulses palpable and symmetrical. Absent : calf tenderness, cyanotic, pedal edema - Neurological Exam Neurological exam: Present: CN II-XII intact, oriented X3, no focal deficits. Absent: pronater drift, facial droop, speech deficit - Skin Skin exam: Present: dry, intact Internal Medicine: Result - Labs CBC & Chem 7: 05/03/17 04:44 05/03/17 04:44 - Impressions Impressions Retroperitoneum Ultrasound 05/03/17 17:00 IMPRESSION: 2.6 x 2.2 x 2.8 cm right renal cyst. D/ / Clarissa Howard MD / Clarissa Howard MD Interpreting Provider: Clarissa Howard MD Chest X-Ray 05/04/17 08:08 IMPRESSION: No acute process. D/ / Courtney Warner MD / Courtney Warner MD Interpreting Provider: Courtney Warner MD Consult Discharge Plan - Plan Referrals: Low Olmstead DO [Resident] - Prescriptions: Azithromycin 250 mg PO DAILY #4 tablet Loratadine [Claritin] 10 mg PO DAILY #30 tablet predniSONE [PredniSONE] 10 mg PO DAILY #31 tablet
[2017-05-05] MEDS: Azithromycin 500 MG in D5% in Water 250 ML IVPB SCH (00:56)
[2017-05-05] MEDS: 0.9 % Sodium Chloride 1,000 ML IVC SCH (01:26)
[2017-05-05] MEDS: Levalbuterol Neb 1.25 MG/3 ML IH SCH ×2 (04:03→10:36)
[2017-05-05 04:42] LABS: Hematocrit 39.6 % (35.3-44.9); Hemoglobin 12.9 g/dL (11.5-15.4); Mean Corpuscular HGB Conc 32.6 g/dL (31.6-35.5); Mean Corpuscular Hemoglobin 28.5 pg (28.0-33.3); Mean Corpuscular Volume 87.6 fL (83.0-100.0); Mean Platelet Volume 10.6 fL (9.4-12.4); Platelet Count 294 K/mcL (140-400); Red Blood Count 4.52 M/mcL (3.82-4.97); Red Cell Distribution Width 13.2 % (11.5-14.5)
[2017-05-05 04:50] LABS: BUN/Creatinine Ratio 26 (6-26); Blood Urea Nitrogen 25 mg/dL (7-20); Calcium 9.1 mg/dL (8.6-10.8); Carbon Dioxide 19 mEq/L (19-29); Chloride 109 mEq/L (98-109); Glucose 161 mg/dL (70-99); Osmolality,Calculated 294 (280-300); Sodium 138 mEq/L (136-145); eGFR For African Americans > 60 (> 60); eGFR For Non-African Americans 57 (> 60)
[2017-05-05 04:53] LABS: Potassium 4.7 mEq/L (3.5-4.5)
[2017-05-05] MEDS: *HR* Heparin 5,000 UNIT/ML VIAL SQ SCH (05:05)
[2017-05-05] MEDS ORDERED: methylPREDNISolone 125 MG/2 ML VIAL IVP ONE (08:01)
[2017-05-05] MEDS ORDERED: Levofloxacin 750 MG/150 ML 750 MG/150 ML BAG IVPB SCH (09:00)
[2017-05-05] MEDS: Insulin LISPRO 300 UNITS/3 ML VIAL SQ SCH (09:18)
[2017-05-05] MEDS: Loratadine 10 MG TABLET PO SCH (09:19)
[2017-05-05] MEDS: Aspirin 81 MG TAB.CHEW PO SCH (09:19)
[2017-05-05] MEDS: Famotidine 20 MG TABLET PO SCH (09:20)
[2017-05-05] MEDS: Gabapentin 300 MG CAPSULE PO SCH (09:20)
--- NOTE | 2017-05-05 09:55 | Discharge Summary ---
Date of Encounter: 05/05/17 Time of Encounter: 09:40 - Discharge Diagnosis (1) Acute exacerbation of chronic obstructive airways disease Priority: Primary Status: Acute Comments: Miracle Cobos is a 37-year-old female with past medical history COPD and hypertension who presented to [facility] on 05/01/17 with complaints of shortness of breath. She was found to have COPD exacerbation and AK I. She was placed in observation status for further workup and treatment. 1. Acute COPD exacerbation: current smoker; presented with increased shortness of breath and diffuse wheezing. CXR with emphysematous changes otherwise non- acute. Respiratory PCR negative. Symptoms slowly improved with IV azithromycin and steroids. ATB changed to Levaquin. Patient not at baseline at discharge however subjectively improved and requested discharge. Discharge on Levaquin, steroid taper and breathing treatments. Strongly encouraged smoking cessation. Follow-up with PCP within 5-7 days. 2. CHLOE: Cr 1.2, baseline normal. Possibly prerenal component as patient reports little oral intake prior to admission. Creatinine normalized with IV fluids. Per chart review she has had intermittent CHLOE, recommend outpatient nephrology follow-up. 4. Hypertension: Per history. BP controlled. Continue home BP medications. (2) Acute kidney injury Priority: Primary Status: Resolved (3) HTN (hypertension) Priority: Primary Status: Chronic Qualifiers: Hypertension type: essential hypertension Qualified Code(s): I10 - Essential (primary) hypertension - Discharge Medications Prescriptions: Levalbuterol Neb [Xopenex Neb] 1.25 mg IH [id number] PRN #120 vial.neb PRN Reason: Shortness Of Breath/Wheezing levoFLOXacin [Levaquin] 750 mg PO DAILY #6 tablet Loratadine [Claritin] 10 mg PO DAILY #30 tablet predniSONE [PredniSONE] 10 mg PO DAILY #30 tablet Home Medications: Aspirin 81 mg PO DAILY 02/08/15 [History] Atorvastatin [Lipitor] 10 mg PO HS 02/08/15 [History] Docusate [Colace] 100 mg PO DAILY PRN 02/08/15 [History] Budesonide/Formoterol 160/4.5 [Symbicort 160/4.5] 2 puff IH BIDR 02/11/15 [ History] Albuterol Sulfate [Albuterol Inhaler] 2 puff IH Q4HR PRN #1 hfa.aer.ad 04/17/16 [Rx] Gabapentin [Neurontin] 300 mg PO TID 09/09/16 [History] HydrOXYzine Pamoate [Vistaril] 50 mg PO Q6H PRN 09/09/16 [History] HYDROcodone/Acet 10/325 mg [[place] 10-325 mg] 1 tab PO Q6H PRN 03/11/17 [History] Lisinopril [Zestril] 10 mg PO DAILY 03/11/17 [History] Naproxen Sodium [Aleve] 220 mg PO Q12H PRN 03/11/17 [History] Quetiapine Fumarate [Seroquel] 50 mg PO BID 03/11/17 [History] Benzonatate [Tessalon] 100 mg PO TID #15 capsule 04/30/17 [Rx] Guaifenesin [Mucinex] 600 mg PO BID #30 tab.er.12h 04/30/17 [Rx] Loratadine [Claritin] 10 mg PO DAILY #30 tablet 05/03/17 [Rx] Levalbuterol Neb [Xopenex Neb] 1.25 mg IH [id number] PRN #120 vial.neb 05/05/17 [Rx ] levoFLOXacin [Levaquin] 750 mg PO DAILY #6 tablet 05/05/17 [Rx] predniSONE [PredniSONE] 10 mg PO DAILY #30 tablet 05/05/17 [Rx] Allergies/Adverse Reactions: 3 Allergy/AdvReac Type Severity Reaction Status Date / Time codeine Allergy UNKNOWN Verified 03/11/17 15:25 REACTION Penicillins Allergy UNKNOWN Verified 03/11/17 15:25 REACTION Procedures/tests Complete & Pending: Procedures Performed prior 72 hours Category Date Time Status retroperitoneal ultrasound - limited [US Exams 05/03/17 17:00 Completed retroperitoneal limited] [US] Routine Date of admission: 05/01/17 22:59 Primary care physician: Adriane Deleon Consults: 05/01/17 23:08 Consult to Occupational Therapy [CONS] Routine Comment: Evaluate, develop and implement POC Reason for Consult: weakness Consult to Physical Therapy [CONS] Routine Comment: Evaluate, develop and implement POC Reason for Consult: weakness 05/03/17 14:22 Consult to Acid Changer [CONS] Routine Reason for SW Consult: discharge planning Discharging clinician: Nataly Hancock Anticipated date of discharge: 05/05/17 - Patient Status Disposition: Home Health Service Condition: Good Functional capacity at discharge: independent ambulation Overall status at discharge: patient is progressing back to baseline - Discharge Instructions Instructions: Chronic Obstructive Pulmonary Disease (DC), How to Stop Smoking ( DC), Cigarette Smoking and Your Health (GEN), Levofloxacin (By mouth), Prednisone (By mouth) Follow Up With: Kenny Murrell DO [Partnered Physician] - 05/25/17 3:25 pm Low Olmstead DO [Resident] - 05/11/17 3:30 pm - Diet and Activity Activity: increase activity as tolerated, resume usual activities as tolerated Diet: advance to your usual diet Interval History: Seen and examined at bedside. Patient says she feels better and would like to go home today. She appears a little improved from yesterday's exam however not back to baseline. Would like patient to stay over another night however she is declining; says she is feeling much better and wants to discharge home. Her only complaint is a productive cough at times. No shortness of breath, no chest pain, no fevers or chills. Hospital course: Ms. Cobos is a 77 year old female - Time Spent with Patient Total time spent providing and/or coordinating discharge services: - Constitutional Vitals: Temp Pulse Resp BP Pulse Ox 97.5 F L 82 16 144/94 96 05/05/17 08:01 05/05/17 08:01 05/05/17 08:01 05/05/17 08:01 05/05/17 08:01 General appearance: Present: cooperative, A&O X 3, morbidly obese, pleasant, no acute distress, answers questions appropriately - Head Head exam: Present: atraumatic, normocephalic - Eye Eye exam: Present: PERRL, conjuntiva pink, sclera anicteric Pupils: Present: PERRL - Neck Neck exam general surgery: Present: supple, trachea midline. Absent: lymphadenopathy - Respiratory Respiratory exam: Present: wheezes. Absent: accessory muscle use, rales, rhonchi - Cardiovascular Cardiovascular exam: Present: RRR, +S1, +S2. Absent: diastolic murmur, gallop, rubs, systolic murmur - GI/Abdominal GI/Abdominal exam: Present: normal bowel sounds, soft, no peritoneal signs. Absent: distended, tenderness - Extremities Exam Extremities exam: Present: warm, radial pulses palpable and symmetrical. Absent : calf tenderness, cyanotic, pedal edema - Neurological Exam Neurological exam: Present: CN II-XII intact, oriented X3, no focal deficits. Absent: pronater drift, facial droop, speech deficit - Skin Skin exam: Present: dry, intact
--- NOTE | 2017-05-05 10:18 | Physician Discharge Referral ---
Home Health/Hosp Referral Info Transfer to: Home Health Attending Provider: Nataly Hancock CNP Provider in Charge Post Discharge: PCP - Diagnosis (1) Acute exacerbation of chronic obstructive airways disease Status: Acute (2) Acute kidney injury Status: Resolved (3) HTN (hypertension) Status: Chronic - Respiratory Orders Smoking Cessation: Smoking cessation has been advised. For more information, call the [place] Tobacco Quit Line at 4-175-TIWS-NOW. - Transfer Medications Prescriptions: Levalbuterol Neb [Xopenex Neb] 1.25 mg IH [id number] PRN #120 vial.neb PRN Reason: Shortness Of Breath/Wheezing levoFLOXacin [Levaquin] 750 mg PO DAILY #6 tablet Loratadine [Claritin] 10 mg PO DAILY #30 tablet predniSONE [PredniSONE] 10 mg PO DAILY #30 tablet Home Medications: Aspirin 81 mg PO DAILY 02/08/15 [History] Atorvastatin [Lipitor] 10 mg PO HS 02/08/15 [History] Docusate [Colace] 100 mg PO DAILY PRN 02/08/15 [History] Budesonide/Formoterol 160/4.5 [Symbicort 160/4.5] 2 puff IH BIDR 02/11/15 [ History] Albuterol Sulfate [Albuterol Inhaler] 2 puff IH Q4HR PRN #1 hfa.aer.ad 04/17/16 [Rx] Gabapentin [Neurontin] 300 mg PO TID 09/09/16 [History] HydrOXYzine Pamoate [Vistaril] 50 mg PO Q6H PRN 09/09/16 [History] HYDROcodone/Acet 10/325 mg [[place] 10-325 mg] 1 tab PO Q6H PRN 03/11/17 [History] Lisinopril [Zestril] 10 mg PO DAILY 03/11/17 [History] Naproxen Sodium [Aleve] 220 mg PO Q12H PRN 03/11/17 [History] Quetiapine Fumarate [Seroquel] 50 mg PO BID 03/11/17 [History] Benzonatate [Tessalon] 100 mg PO TID #15 capsule 04/30/17 [Rx] Guaifenesin [Mucinex] 600 mg PO BID #30 tab.er.12h 04/30/17 [Rx] Loratadine [Claritin] 10 mg PO DAILY #30 tablet 05/03/17 [Rx] Levalbuterol Neb [Xopenex Neb] 1.25 mg IH [id number] PRN #120 vial.neb 05/05/17 [Rx ] levoFLOXacin [Levaquin] 750 mg PO DAILY #6 tablet 05/05/17 [Rx] predniSONE [PredniSONE] 10 mg PO DAILY #30 tablet 05/05/17 [Rx] Allergies/Adverse Reactions: 3 Allergy/AdvReac Type Severity Reaction Status Date / Time codeine Allergy UNKNOWN Verified 03/11/17 15:25 REACTION Penicillins Allergy UNKNOWN Verified 03/11/17 15:25 REACTION Certification: Further, I certify that my clinical findings support that this patient is homebound (i.e. absences from home require considerable and taxing effort and are for medical reasons or zoroastrianism services or infrequently or short duration when for other reasons) because: Homebound Reason: Patient requires assistance of a person or device to safely leave home Attestation: My signature below is to certify that this patient is under my care and that I, or nurse practitioner, or a physician's corporate administrative assistant working with me, has a face-to -face encounter with this patient.
[2017-05-05 10:35] VITALS: BP 141/86
[2017-05-05] MEDS ORDERED: Levalbuterol 1 PUFF INHALER IH PRN (11:04)
== END 2017-05-05 12:47 | disposition home health service (06) ==
LOC: 3BNU 21:00 → EMEROO 21:00 → 3BNU 23:36
PROVIDERS: ADMIT Hospitalist; ATTEND Registered Nurse

== ENCOUNTER 2017-11-10 21:42 | Observation (INO) ==
[2017-11-10 22:39] LABS: Basophils # 0.1 K/mcL (0.0-0.2); Basophils % 0.9 %; Eosinophils # 0.3 K/mcL (0.0-0.6); Eosinophils % 3.7 %; Hematocrit 45.5 % (35.3-44.9); Hemoglobin 15.1 g/dL (11.5-15.4); Immature Granulocytes % 0.2 % (0-4); Lymphocytes % 24.1 %; Mean Corpuscular HGB Conc 33.2 g/dL (31.6-35.5); Mean Corpuscular Hemoglobin 29.3 pg (28.0-33.3); Mean Corpuscular Volume 88.2 fL (83.0-100.0); Mean Platelet Volume 10.2 fL (9.4-12.4); Monocytes # 0.8 K/mcL (0.0-1.3); Monocytes % 9.6 %; Platelet Count 250 K/mcL (140-400); Red Blood Count 5.16 M/mcL (3.82-4.97); Red Cell Distribution Width 13.5 % (11.5-14.5); Segmented Neutrophils % 61.5 %
[2017-11-10 22:56] LABS: BUN/Creatinine Ratio 25 (6-26); Blood Urea Nitrogen 22 mg/dL (8-23); Calcium 9.6 mg/dL (8.6-10.3); Carbon Dioxide 24 mEq/L (23-29); Chloride 110 mEq/L (98-107); Glucose 97 mg/dL (70-105); Osmolality,Calculated 291 (280-300); Potassium 4.3 mEq/L (3.5-5.1); Sodium 139 mEq/L (136-145); Troponin I < 0.03 ng/mL (< 0.04); eGFR For African Americans > 60 (> 60); eGFR For Non-African Americans > 60 (> 60)
[2017-11-10] MEDS ORDERED: 0.9 % Sodium Chloride 1,000 ML IVC ONE (23:47)
[2017-11-10] MEDS ORDERED: *HR* LORazepam 2 MG/ML VIAL IVP ONE (23:47)
--- NOTE | 2017-11-11 01:08 | Emergency Department Note ---
Disposition Clinical Impression: Syncope Qualifiers: Syncope type: unspecified Qualified Code(s): R55 - Syncope and collapse Disposition: Admitted As Inpatient Condition: Undetermined Syncope HPI - General Chief Complaint: ED Syncope Stated Complaint: syncope,anxiety Time Seen by Provider: 11/10/17 23:16 Source: patient Mode of arrival: private vehicle Limitations: no limitations Nursing Notes Reviewed: Yes Vital Signs Reviewed: Yes - History of Present Illness HPI Narrative: 77-year-old female with a history of hypertension, COPD, hyperlipidemia, anxiety , anxiety attacks presents emergency department after having a sudden syncopal episode was sitting outside around 9:15 yesterday. Episode was witnessed by a neighbor who states she was found less than 1 minute. She did awake alert and oriented. Patient denies having any episodes like this recently, she states it felt like something was over top of her mouth smothering her prior to the syncopal episode. She denies having any lightheadedness, dizziness, chest pain , prior to or after the syncopal episode. Patient states that she has frequent anxiety attacks that she has known herself to become lightheaded during those before the she takes Vistaril up to twice a day. She states this potentially could have been an anxiety attack however she does not know if it was or not. Patient states she has a weird way of feeling her anxiety and sometimes with a tactile feeling like that her skin is crawling or that her hair is standing up on end, she stated that the initial smothering feeling felt a lot like the tactile feelings that she feels during her anxiety. She denies recent illness, fever, chills, difficulty breathing, coughing, chest pain, increased edema, nausea, vomiting, diarrhea, constipation. Daughter that is with her states patient never drinks water and occasionally will have maybe half a glass over the course of several days. The only complaint patient has at this time is that she is feeling anxious. Pt Subjective Complaint: loss of consciousness Onset (ago): hour(s) Number of episodes: 1 Duration: second(s) Prodromal Symptoms: other Witnessed: yes - by bystander Context: at rest Injuries Sustained Associated with Event: none Current Symptoms: none, other Associated trauma secondary to event: No - Related Data Home Medications Medication Instructions Recorded Confirmed Aspirin 81 mg PO DAILY 02/08/15 05/02/17 Atorvastatin [Lipitor] 10 mg PO HS 02/08/15 05/02/17 Docusate [Colace] 100 mg PO DAILY PRN 02/08/15 05/02/17 Budesonide/Formoterol 160/4.5 2 puff IH BIDR 02/11/15 05/02/17 [Symbicort 160/4.5] Gabapentin [Neurontin] 300 mg PO TID 09/09/16 05/02/17 HydrOXYzine Pamoate [Vistaril] 50 mg PO Q6H PRN 09/09/16 05/02/17 HYDROcodone/Acet 10/325 mg [[place] 1 tab PO Q6H PRN 03/11/17 05/02/17 10-325 mg] Lisinopril [Zestril] 10 mg PO DAILY 03/11/17 05/02/17 Naproxen Sodium [Aleve] 220 mg PO Q12H PRN 03/11/17 05/02/17 Quetiapine Fumarate [Seroquel] 50 mg PO BID 03/11/17 05/02/17 Previous Rx's Medication Instructions Recorded Albuterol Sulfate [Albuterol 2 puff IH Q4HR PRN #1 hfa.aer.ad 04/17/16 Inhaler] Benzonatate [Tessalon] 100 mg PO TID #15 capsule 04/30/17 Guaifenesin [Mucinex] 600 mg PO BID #30 tab.er.12h 04/30/17 Loratadine [Claritin] 10 mg PO DAILY #30 tablet 05/03/17 Levalbuterol Neb [Xopenex Neb] 1.25 mg IH [id number] PRN #120 05/05/17 vial.neb levoFLOXacin [Levaquin] 750 mg PO DAILY #6 tablet 05/05/17 predniSONE [PredniSONE] 10 mg PO DAILY #30 tablet 05/05/17 Benztropine [Cogentin] 1 mg PO BID PRN #60 tablet 06/25/17 Allergies Allergy/AdvReac Type Severity Reaction Status Date / Time codeine Allergy UNKNOWN Verified 03/11/17 15:25 REACTION Penicillins Allergy UNKNOWN Verified 03/11/17 15:25 REACTION All systems ED: reviewed and negative except as stated. Review of Systems: As Per HPI Past Medical History - Past Medical History Attestation: Yes The following information was validated with the patient. Source: patient Medical history: Reports: COPD, hyperlipidemia, hypertension, other Surgical history: Reports: non-contributory, breast surgery, , cholecystectomy, hip replacement, hysterectomy, knee replacement, other Psychiatric history: Reports: anxiety, depression - Social History Smoking Status: Current every day smoker Smokeless Tobacco Status: No Alcohol use: Reports: none Drug use: Reports: none Physical Exam - General Limitations: no limitations General appearance: alert, in no apparent distress - Head Head exam: atraumatic, normocephalic, normal inspection - Eye Eye exam: Present: normal appearance, PERRL, EOMI - ENT ENT exam: mucous membranes dry - Neck Neck exam: Present: normal inspection, full ROM, trachea midline - Chest Chest inspection: Present: normal inspection, symmetric chest wall rise - Respiratory Respiratory exam: Present: normal lung sounds bilaterally - Cardiovascular Cardiovascular exam: Present: regular rate, normal rhythm, normal heart sounds, other (Bilateral lower extremities with +1 edema to ankles, this is a chronic condition.) - Abdominal Exam Abdominal exam: Present: soft, Non-Tender. Absent: tenderness, distention, guarding, rebound, rigidity - Extremities Exam Extremities exam: Present: normal inspection, full ROM. Absent: tenderness, pedal edema - Expanded Lower Extremity Exam Neurovascular/Tendon exam: Present: normal capillary refill. Absent: pulse deficit, motor deficit, sensory deficit, tendon deficit Gait: observed and normal - Neurological Exam Neurological exam: Present: alert, oriented X3, CN II-XII intact, normal gait - Expanded Neurological Exam Patient oriented to: Present: person, place, time Speech: Present: fluid speech Cranial nerves: EOM function (II, III, IV, ): Normal, facial sensation (V): Normal, facial palsy (VII): Normal, gag reflex (IX): Normal, spinal accessory function (XI): Normal, tongue deviation (XII): Normal Motor strength - LUE: 5/5 Motor strength - RUE: 5/5 Motor strength - LLE: 5/5 Motor strength - RLE: 5/5 Coma Scale Eye Opening: Spontaneous Coma Scale Motor Response: Obeys Commands Coma Scale Verbal Response: Oriented Coma Scale Total: 15 - Psychiatric Psychiatric exam: Present: normal affect, anxious - Skin Skin exam: Present: warm, dry, intact, normal color Course Course Narrative: Elderly female who does not appear toxic, well-developed, anxious-appearing patient. Respirations are easy and even. Patient is teary-eyed throughout examination. She is alert and oriented 3, makes good and sound decisions. She is neurologically intact. Physical exam as noted above. EKG revealed sinus rhythm, normal EKG with a rate of 70 bpm, normal axis as, normal measurements without signs of ST deviation, blocks, arrhythmias patient does have a systolic murmur, . Patient has not had an echo. Labs reveal no acute abnormalities, EKG without any blockages. Patient is adamantly above the age of 65, she does have a known murmur as well as some cardiac morbidities. Patient will need to be admitted to the hospital for syncope. Spoke with patient and family who is agreeable to plan of care. - Reevaluation(s) Reevaluation #1: Patient has rested quietly since being on the unit. She has not had any syncopal episodes nor has she had any confusion, chest pain, or any other symptoms. Spoke with hospitalist regarding admission and he wanted a head CT to rule out brain bleed. Head CT returned negative. Possible septic patient at this time she will be moved to an inpatient unit. Patient continues to be agreeable to plan of care. She is safe for transfer. Time: 03:53 Vital Signs Temperature 98.1 F 11/10/17 21:47 Pulse Rate 75 11/10/17 21:47 Respiratory Rate 18 11/10/17 21:47 Blood Pressure 135/65 11/10/17 21:47 O2 Sat by Pulse Oximetry 97 11/10/17 21:47 Temperature 98.1 F 11/10/17 21:47 Pulse Rate 74 11/11/17 03:06 Respiratory Rate 18 11/11/17 03:06 Blood Pressure 118/72 11/11/17 03:06 O2 Sat by Pulse Oximetry 96 11/11/17 03:06 Oxygen Delivery Oxygen Delivery Nasal Cannula Syncope - Differential Diagnosis Likely: syncope due to orthostatic hypotension, vasovagal syncope, dehydration/ metabolic disorder. Unlikely: complete atrioventricular block, intracerebral hemorrhage, pulmonary embolism, trauma secondary to event - Medical Records Medical records reviewed: Yes I reviewed the patient's medical records. - Lab Data Lab results reviewed: Yes I reviewed the patient's lab results. Result diagrams: 11/10/17 22:05 11/10/17 22:05 Lab Results 11/10/17 11/10/17 Range/Units 22:05 22:05 WBC 8.2 (4.3-11.1) K/mcL RBC 5.16 H (3.82-4.97) M/mcL Hgb 15.1 (11.5-15.4) g/dL Hct 45.5 H (35.3-44.9) % MCV 88.2 (83.0-100.0) fL MCH 29.3 (28.0-33.3) pg MCHC 33.2 (31.6-35.5) g/dL RDW 13.5 (11.5-14.5) % Plt Count 250 (140-400) K/mcL MPV 10.2 (9.4-12.4) fL Immature Gran % 0.2 (0-4) % Seg Neutrophils % 61.5 % Lymphocytes % 24.1 % Monocytes % 9.6 % Eosinophils % 3.7 % Basophils % 0.9 % Neutrophils # 5.0 (1.6-8.9) K/mcL Lymphocytes # 2.0 (0.6-4.6) K/mcL Monocytes # 0.8 (0.0-1.3) K/mcL Eosinophils # 0.3 (0.0-0.6) K/mcL Basophils # 0.1 (0.0-0.2) K/mcL Sodium 139 (136-145) mEq/L Potassium 4.3 (3.5-5.1) mEq/L Chloride 110 H (98-107) mEq/L Carbon Dioxide 24 (23-29) mEq/L BUN 22 (8-23) mg/dL Creatinine 0.89 (0.60-1.20) mg/dL Est GFR ( Amer) > 60 (> 60) Est GFR (Non-Af Amer) > 60 (> 60) BUN/Creatinine Ratio 25 (6-26) Glucose 97 (70-105) mg/dL Calculated Osmolality 291 (280-300) Calcium 9.6 (8.6-10.3) mg/dL Troponin I < 0.03 (< 0.04) ng/mL - Radiology Data Radiology results reviewed: Yes I reviewed the patient's radiology results. Chest X-Ray 11/10/17 22:01 IMPRESSION: No acute abnormality detected. D/ / Tony Harris MD / Tony Harris MD Interpreting Provider: Tony Harris MD - EKG Data EKG attestation: Yes I reviewed and interpreted this EKG. Interpretation: normal EKG
--- NOTE | 2017-11-11 03:56 | Emergency Department Note ---
Disposition Clinical Impression: Syncope Qualifiers: Syncope type: unspecified Qualified Code(s): R55 - Syncope and collapse Disposition: Admitted As Inpatient Condition: Good General Adult HPI - General Chief complaint: ED Syncope Stated complaint: syncope,anxiety Time Seen by Provider: 11/10/17 23:16 Source: patient Mode of arrival: private vehicle Limitations: no limitations Nursing Notes Reviewed: Yes Vital Signs Reviewed: Yes - History of Present Illness Pain Scale: 0 - Related Data Home Medications Medication Instructions Recorded Confirmed Aspirin 81 mg PO DAILY 02/08/15 05/02/17 Atorvastatin [Lipitor] 10 mg PO HS 02/08/15 05/02/17 Docusate [Colace] 100 mg PO DAILY PRN 02/08/15 05/02/17 Budesonide/Formoterol 160/4.5 2 puff IH BIDR 02/11/15 05/02/17 [Symbicort 160/4.5] Gabapentin [Neurontin] 300 mg PO TID 09/09/16 05/02/17 HydrOXYzine Pamoate [Vistaril] 50 mg PO Q6H PRN 09/09/16 05/02/17 HYDROcodone/Acet 10/325 mg [[place] 1 tab PO Q6H PRN 03/11/17 05/02/17 10-325 mg] Lisinopril [Zestril] 10 mg PO DAILY 03/11/17 05/02/17 Naproxen Sodium [Aleve] 220 mg PO Q12H PRN 03/11/17 05/02/17 Quetiapine Fumarate [Seroquel] 50 mg PO BID 03/11/17 05/02/17 Previous Rx's Medication Instructions Recorded Albuterol Sulfate [Albuterol 2 puff IH Q4HR PRN #1 hfa.aer.ad 04/17/16 Inhaler] Benzonatate [Tessalon] 100 mg PO TID #15 capsule 04/30/17 Guaifenesin [Mucinex] 600 mg PO BID #30 tab.er.12h 04/30/17 Loratadine [Claritin] 10 mg PO DAILY #30 tablet 05/03/17 Levalbuterol Neb [Xopenex Neb] 1.25 mg IH [id number] PRN #120 05/05/17 vial.neb levoFLOXacin [Levaquin] 750 mg PO DAILY #6 tablet 05/05/17 predniSONE [PredniSONE] 10 mg PO DAILY #30 tablet 05/05/17 Benztropine [Cogentin] 1 mg PO BID PRN #60 tablet 06/25/17 Allergies Allergy/AdvReac Type Severity Reaction Status Date / Time codeine Allergy UNKNOWN Verified 03/11/17 15:25 REACTION Penicillins Allergy UNKNOWN Verified 03/11/17 15:25 REACTION Past Medical History - Past Medical History Medical history: Reports: COPD, hyperlipidemia, hypertension, other Surgical history: Reports: non-contributory, breast surgery, , cholecystectomy, hip replacement, hysterectomy, knee replacement, other Psychiatric history: Reports: anxiety, depression - Social History Smoking Status: Current every day smoker Smokeless Tobacco Status: No Alcohol use: Reports: none Drug use: Reports: none Physical Exam - General Limitations: no limitations General appearance: alert, in no apparent distress Course Vital Signs Temperature 98.1 F 11/10/17 21:47 Pulse Rate 75 11/10/17 21:47 Respiratory Rate 18 11/10/17 21:47 Blood Pressure 135/65 11/10/17 21:47 O2 Sat by Pulse Oximetry 97 11/10/17 21:47 Temperature 98.1 F 11/10/17 21:47 Pulse Rate 74 11/11/17 03:06 Respiratory Rate 18 11/11/17 03:06 Blood Pressure 118/72 11/11/17 03:06 O2 Sat by Pulse Oximetry 96 11/11/17 03:06 Oxygen Delivery Oxygen Delivery Nasal Cannula Medical Decision Making - Lab Data Result diagrams: 11/10/17 22:05 11/10/17 22:05 Lab Results 11/10/17 11/10/17 Range/Units 22:05 22:05 WBC 8.2 (4.3-11.1) K/mcL RBC 5.16 H (3.82-4.97) M/mcL Hgb 15.1 (11.5-15.4) g/dL Hct 45.5 H (35.3-44.9) % MCV 88.2 (83.0-100.0) fL MCH 29.3 (28.0-33.3) pg MCHC 33.2 (31.6-35.5) g/dL RDW 13.5 (11.5-14.5) % Plt Count 250 (140-400) K/mcL MPV 10.2 (9.4-12.4) fL Immature Gran % 0.2 (0-4) % Seg Neutrophils % 61.5 % Lymphocytes % 24.1 % Monocytes % 9.6 % Eosinophils % 3.7 % Basophils % 0.9 % Neutrophils # 5.0 (1.6-8.9) K/mcL Lymphocytes # 2.0 (0.6-4.6) K/mcL Monocytes # 0.8 (0.0-1.3) K/mcL Eosinophils # 0.3 (0.0-0.6) K/mcL Basophils # 0.1 (0.0-0.2) K/mcL Sodium 139 (136-145) mEq/L Potassium 4.3 (3.5-5.1) mEq/L Chloride 110 H (98-107) mEq/L Carbon Dioxide 24 (23-29) mEq/L BUN 22 (8-23) mg/dL Creatinine 0.89 (0.60-1.20) mg/dL Est GFR ( Amer) > 60 (> 60) Est GFR (Non-Af Amer) > 60 (> 60) BUN/Creatinine Ratio 25 (6-26) Glucose 97 (70-105) mg/dL Calculated Osmolality 291 (280-300) Calcium 9.6 (8.6-10.3) mg/dL Troponin I < 0.03 (< 0.04) ng/mL Attestation Statement - Attestation Attestation: I, Kenrick Monsalve MD, personally evaluated this patient and discussed their management with the midlevel provicer, PAC/[employer] N[employer] AUDITOR. I reviewed the midlevel provider 's note and agree with the documented findings, medical decision making, and plan of care. 77-year-old female presented to the emergency department after having a syncopal episode at home. She had a complete loss of consciousness that was witnessed and lasted less than a minute. Denies any symptoms prior to the episode. No prior history. On examination patient is a well-developed well-nourished elderly female in no acute distress. She is alert and oriented 3. There is no cyanosis or diaphoresis. Breath sounds are clear and equal bilaterally. Heart regular rate and rhythm. Abdomen is soft and nontender with normal bowel sounds. Labs reviewed. Head CT negative. Chest x-ray negative. The hospitalist, Dr. Togn, was consulted and accepted admission of the patient.
[2017-11-11] MEDS ORDERED: Naloxone 0.4 MG/ML INJ IVP PRN (04:39)
--- NOTE | 2017-11-11 04:39 | Internal Med History&Physical ---
Date of Encounter: 11/11/17 Time of Encounter: 04:34 Internal Medicine - H&P: HPI Chief complaint: anxiety attack/"passed out" Admitted From: Home Plans for Post Hospital Care: Home History of present illness: Ms. Cobos is a 77 year old female w/ pmh of HTN, COPD, HLD, anxiety attacks presents after losing consciousness in the middle of a panic attack around 9 PM last night. Patient admits to not drinking or eating anything all day. She was sitting on her porch when she felt a panic attack coming on, she attempted to reach for her "anxiety" medications, and she passed out in her chair. This episode was witness by her neighbors, which reported that she lost consciousness for about 1 minute. She denies feeling confusion or disorientation, nausea, vomting, chest pain or sob prior and post "passing out" . Patient states this has happened previously about a year ago, which no cause was found during her hospitalization. Patient does report feeling hungry and thirsty at this time. patient denies biting her tongue or losing her bladder. Past Med Surg Social Fam HX - Past Medical History Medical history: COPD, hyperlipidemia, hypertension, other Psychiatric history: anxiety, depression - Past Surgical History Surgical History: non-contributory, breast surgery, , cholecystectomy, hip replacement, hysterectomy, knee replacement, other - Social History Smoking Status: Current every day smoker Smokeless Tobacco Status: No Alcohol use: none Drug use: none - Family History Father Living Status: Hx Family Endocrine Disorder: Yes (DM) Hx Family Neuromuscular Disorders: Yes (park[place]) Mother Living Status: Hx Family Cardiac Disorders: No Hx Family Respiratory Disorders: Yes (asthma) Hx Family Cancer: No Hx Family GI Disorders: No Hx Family Endocrine Disorder: No Hx Family Neuromuscular Disorders: No Hx Family Neurologic Disorders: No Hx Family HEENT Disorders: No Hx Family Autoimmune Disorders: No Internal Medicine - H&P: Meds Aspirin 81 mg PO DAILY 02/08/15 [History] Atorvastatin [Lipitor] 10 mg PO HS 02/08/15 [History] Docusate [Colace] 100 mg PO DAILY PRN 02/08/15 [History] Budesonide/Formoterol 160/4.5 [Symbicort 160/4.5] 2 puff IH BIDR 02/11/15 [ History] Albuterol Sulfate [Albuterol Inhaler] 2 puff IH Q4HR PRN #1 hfa.aer.ad 04/17/16 [Rx] Gabapentin [Neurontin] 300 mg PO TID 09/09/16 [History] HydrOXYzine Pamoate [Vistaril] 50 mg PO Q6H PRN 09/09/16 [History] HYDROcodone/Acet 10/325 mg [[place] 10-325 mg] 1 tab PO Q6H PRN 03/11/17 [History] Lisinopril [Zestril] 10 mg PO DAILY 03/11/17 [History] Naproxen Sodium [Aleve] 220 mg PO Q12H PRN 03/11/17 [History] Quetiapine Fumarate [Seroquel] 50 mg PO BID 03/11/17 [History] Benzonatate [Tessalon] 100 mg PO TID #15 capsule 04/30/17 [Rx] Guaifenesin [Mucinex] 600 mg PO BID #30 tab.er.12h 04/30/17 [Rx] Loratadine [Claritin] 10 mg PO DAILY #30 tablet 05/03/17 [Rx] Levalbuterol Neb [Xopenex Neb] 1.25 mg IH [id number] PRN #120 vial.neb 05/05/17 [Rx ] levoFLOXacin [Levaquin] 750 mg PO DAILY #6 tablet 05/05/17 [Rx] predniSONE [PredniSONE] 10 mg PO DAILY #30 tablet 05/05/17 [Rx] Benztropine [Cogentin] 1 mg PO BID PRN #60 tablet 06/25/17 [Rx] 3 Allergy/AdvReac Type Severity Reaction Status Date / Time codeine Allergy UNKNOWN Verified 03/11/17 15:25 REACTION Penicillins Allergy UNKNOWN Verified 03/11/17 15:25 REACTION All Systems PM: A 10-system review of systems was performed and is negative for pertinent findings except as documented above in the HPI. - Constitutional Constitutional: weakness, no chills, no fever(s), no falls, no night sweats - EENT Eyes: no change in vision, no discharge, no pain, no photophobia Ears: no ear discharge, no ear pain, no tinnitus Nose, mouth and throat: dry mouth, hoarseness, no dysphagia, no nasal discharge , no neck pain, no sore throat - Cardiovascular Cardiovascular ROS IM: no chest pain, no diaphoresis, no dyspnea, no lightheadedness, no palpitations, no syncope - Respiratory Respiratory: no cough, no dyspnea, no wheezing, no excessive phlegm production - Gastrointestinal Gastrointestinal: no abdominal pain, no diarrhea, no hematemesis, no hematochezia, no melena, no nausea, no vomiting - Genitourinary Genitourinary: no change in urinary stream, no dysuria, no flank pain, no hematuria - Musculoskeletal Musculoskeletal ROS IM: no numbness, no tingling - Integumentary Integumentary IM: no rash, no unusual bruising - Neurological Neurological ROS: no confusion, no convulsions, no focal weakness, no numbness, no tingling, no tremor(s) - Hematologic/Lymphatic Hematologic/Lymphatic: no easy bruising - Constitutional Vitals: Temp Pulse Resp BP Pulse Ox 98.1 F 74 18 118/72 96 11/10/17 21:47 11/11/17 03:06 11/11/17 03:06 11/11/17 03:06 11/11/17 03:06 General appearance: Present: cooperative, A&O X 3, no acute distress, obese, answers questions appropriately - Head Head exam: Present: atraumatic, normocephalic - Eye Eye exam: Present: PERRL, conjuntiva pink, sclera anicteric Pupils: Present: PERRL - ENT ENT exam: Present: mucous membranes dry - Neck Neck exam general surgery: Present: supple, trachea midline. Absent: lymphadenopathy - Respiratory Respiratory exam: Present: prolonged expiratory phase. Absent: accessory muscle use, rales, rhonchi, wheezes - Cardiovascular Cardiovascular exam: Present: RRR. Absent: diastolic murmur, gallop, irregular rhythm, JVD, rubs, systolic murmur, tachycardia - GI/Abdominal GI/Abdominal exam: Present: normal bowel sounds, soft, no peritoneal signs. Absent: bruit, diminished bowel sounds, distended, firm, guarding, hepatomegaly , mass, rebound, rigid, splenomegaly, tenderness - Extremities Exam Extremities exam: Present: warm, radial pulses palpable and symmetrical. Absent : calf tenderness, cyanotic, pedal edema - Neurological Exam Neurological exam: Present: alert, CN II-XII intact, oriented X3, no focal deficits, strengths equal and symetr throughout. Absent: pronater drift, facial droop, speech deficit - Skin Skin exam: Present: dry, intact Internal Med - H&P Results - Labs CBC & Chem 7: 11/10/17 22:05 11/10/17 22:05 - Assessment and plan (1) Syncope Current Visit: Yes Status: Acute Assessment and plan: single syncopal episode most likely multifactorial including dehydration, anxiety attack, polypharmacy. will workup for other causes. Patient hx consistent with dehydration, she had not eaten or drank all day. Will fluid resuscitate, and feed patient. Will continue to treat for anxiety. electrolytes and hgb WNL in ED. Home medication list has multiple [employer] effecting medications, will hold. Workup in the ED includes CT head negative for acute bleed, and CXR for acute cardiopulmonary processes. - PO fluid encouragement - IVF - regular diet; closely monitor blood sugar - morning labs, U/A, BNP, tsh ordered - tele monitoring - echo and carotid duplex ordered - orthostatic vitals - holding home [employer] medications Qualifiers: Syncope type: unspecified Qualified Code(s): R55 - Syncope and collapse (2) HTN (hypertension) Current Visit: Yes Status: Chronic Assessment and plan: continue home rx Qualifiers: Hypertension type: essential hypertension Qualified Code(s): I10 - Essential (primary) hypertension (3) COPD (chronic obstructive pulmonary disease) Current Visit: Yes Status: Chronic Assessment and plan: home meds appear to inclue levaquin, and prednisone. Patient is currently being treated for COPD exacerbation. - continue prednisone, levaquin, provide breathing support, xopenex (home rx) - SpO2 goal 88-92% Qualifiers: COPD type: emphysema Emphysema type: other Qualified Code(s): J43.8 - Other emphysema (4) Hyperlipemia Current Visit: Yes Status: Chronic Assessment and plan: continue home rx Qualifiers: Hyperlipidemia type: mixed hyperlipidemia Qualified Code(s): E78.2 - Mixed hyperlipidemia (5) Dehydration Current Visit: Yes Status: Acute Assessment and plan: see above (6) Anxiety Current Visit: Yes Status: Acute Assessment and plan: see above (7) Goals of care, counseling/discussion Current Visit: Yes Status: Acute Assessment and plan: discussed care goals with patient. She wishes to be DNR/DNI/CCA. She states she does not have power of assistant prosecuting attorney, but her default are her daughters. (8) DVT prophylaxis Current Visit: Yes Status: Acute Assessment and plan: epcd, due to concerns for CVA (9) Tobacco abuse Current Visit: Yes Status: Chronic Assessment and plan: current everyday smoker. discussed smoking cessation with patient. - Time Spent With Patient Total time spent is greater than 50% in coordination of care (as documented) at patient's floor/unit and/or counseling patient:
[2017-11-11] MEDS ORDERED: Levalbuterol Neb 1.25 MG/3 ML IH PRN (04:52)
--- NOTE | 2017-11-11 05:05 | Event Note ---
Date of Encounter: 11/11/17 Time of Encounter: 05:01 Patient was seen and examined. I agree with the H&P as written by the Resident Physician. Briefly, 77 yo F with HTN, COPD, HLD, anxiety with frequent attacks who comes in after an episode of LOC during a suspected panic attack. She tried to get her anxiety meds but she became unresponsive and was out for what sounds about a minute per reports. Work up negative in the ED including laboratory, CT head, and EKG. The patient currently is A/Ox3, NAD RRR. S1, S2, no m/r/g CTAB abdomen soft, NT, ND, +BS Will admit to tele for syncope work up completion echo carotids US Check orthostatics TSH Patient is also on many P[employer] meds and those may need to be looked at after d/c
[2017-11-11] MEDS: 0.9 % Sodium Chloride 1,000 ML IVC SCH ×2 (05:44→15:36)
[2017-11-11 06:47] LABS: Basophils # 0.1 K/mcL (0.0-0.2); Basophils % 0.9 %; Eosinophils # 0.3 K/mcL (0.0-0.6); Eosinophils % 4.2 %; Hematocrit 40.5 % (35.3-44.9); Immature Granulocytes % 0.3 % (0-4); Lymphocytes % 29.9 %; Mean Corpuscular HGB Conc 33.1 g/dL (31.6-35.5); Mean Corpuscular Hemoglobin 29.1 pg (28.0-33.3); Monocytes # 0.8 K/mcL (0.0-1.3); Monocytes % 11.9 %; Neutrophils # 3.5 K/mcL (1.6-8.9); Platelet Count 198 K/mcL (140-400); Red Cell Distribution Width 13.6 % (11.5-14.5); Segmented Neutrophils % 52.8 %
[2017-11-11 06:49] LABS: Hemoglobin 13.4 g/dL (11.5-15.4)
[2017-11-11 06:53] LABS: Prothrombin Time 10.2 Seconds (9.4-12.1)
[2017-11-11 06:56] LABS: Activated Partial Thrombo Time 31.1 Seconds (26.0-36.0)
[2017-11-11 07:14] LABS: Alanine Aminotransferase 6 Units/L (7-52); Albumin 3.6 g/dL (3.5-5.7); Albumin/Globulin Ratio 1.7 (1.1-2.2); Alkaline Phosphatase 108 Units/L (34-104); Aspartate Amino Transferase 11 Units/L (13-39); BUN/Creatinine Ratio 25 (6-26); Bilirubin,Total 0.9 mg/dL (0.3-1.0); Blood Urea Nitrogen 19 mg/dL (8-23); Calcium 8.9 mg/dL (8.6-10.3); Carbon Dioxide 22 mEq/L (23-29); Chloride 112 mEq/L (98-107); Chol/HDL Ratio 3.2 (0-4.9); Cholesterol 133 mg/dL (< 200); Globulin 2.1 g/dL (2.4-3.5); Glucose 88 mg/dL (70-105); HDL Cholesterol 41 mg/dL (40-59); LDL Cholesterol,Calculated 68 mg/dL (0-99); Magnesium 1.9 mg/dL (1.6-2.6); Osmolality,Calculated 290 (280-300); Phosphorous 3.4 mg/dL (2.7-4.5); Sodium 139 mEq/L (136-145); Total Protein 5.7 g/dL (6.4-8.9); Triglycerides 119 mg/dL (< 150); eGFR For African Americans > 60 (> 60); eGFR For Non-African Americans > 60 (> 60)
[2017-11-11] MEDS: Benzonatate 100 MG CAPSULE PO SCH ×2 (08:48→15:35)
[2017-11-11] MEDS: Gabapentin 300 MG CAPSULE PO SCH ×2 (08:48→15:35)
[2017-11-11] MEDS ORDERED: levoFLOXacin 750 MG TABLET PO SCH (09:00)
[2017-11-11] MEDS ORDERED: predniSONE 10 MG TABLET PO SCH (09:00)
[2017-11-11] MEDS ORDERED: Aspirin 81 MG TAB.CHEW PO SCH (09:00)
[2017-11-11] MEDS ORDERED: Budesonide/Formoterol 160/4.5 MDI IH SCH (10:00)
[2017-11-11 10:22] VITALS: BP 130/85
--- NOTE | 2017-11-11 15:51 | Discharge Summary ---
- NOTES TO OUTPATIENT PROVIDER Notes to Outpatient Provider: Follow-up with psychiatry for panic attack management Orders not resulted at time of discharge: Pending orders 11/11/17 04:39 Urinalysis reflex Microscopic [URIN] Routine Date of Encounter: 11/11/17 Time of Encounter: 11:00 - Discharge Diagnosis (1) Syncope Priority: Primary Status: Acute Qualifiers: Syncope type: unspecified Qualified Code(s): R55 - Syncope and collapse (2) HTN (hypertension) Priority: Secondary Status: Chronic Qualifiers: Hypertension type: essential hypertension Qualified Code(s): I10 - Essential (primary) hypertension (3) COPD (chronic obstructive pulmonary disease) Priority: Secondary Status: Chronic Qualifiers: COPD type: emphysema Emphysema type: other Qualified Code(s): J43.8 - Other emphysema (4) Hyperlipemia Priority: Secondary Status: Chronic Qualifiers: Hyperlipidemia type: mixed hyperlipidemia Qualified Code(s): E78.2 - Mixed hyperlipidemia (5) Tobacco abuse Priority: Secondary Status: Chronic (6) Dehydration Priority: Primary Status: Acute (7) Anxiety Priority: Primary Status: Acute Hospital course: Patient is a 77-year-old female with past medical history significant for panic attacks, hypertension, COPD and hyperlipidemia who presented to the ER on due to syncopal episode after panic attack. She was reported of having a syncopal episode after experiencing a panic attack the evening prior to admission. Patient admitted to not eating and drinking that day. States that she was sitting on the porch when she felt the panic attack coming on and suddenly felt anxious and then had a syncopal event. Patient states this has happened previously about a year ago, which no cause was found during her hospitalization. She was brought into the ER for evaluation and was admitted to the medical surgical floor for further evaluation. During patients hospital stay her labs were unremarkable and echocardiogram showed LVEF of 65% with mild left ventricular diastolic dysfunction. So noted was mild to moderate aortic stenosis. Orthostatic hypotension test negative. Carotid Dopplers revealed bilateral nonstenotic plaque. She will be discharged to follow-up with psychiatry/primary care provider for panic attack management - Time Spent with Patient Total time spent providing and/or coordinating discharge services: Less than 30 minutes - Discharge Medications Home Medications: Aspirin 81 mg PO DAILY 02/08/15 [History] Atorvastatin [Lipitor] 10 mg PO HS 02/08/15 [History] Docusate [Colace] 100 mg PO DAILY PRN 02/08/15 [History] Budesonide/Formoterol 160/4.5 [Symbicort 160/4.5] 2 puff IH BIDR 02/11/15 [ History] Albuterol Sulfate [Albuterol Inhaler] 2 puff IH Q4HR PRN #1 hfa.aer.ad 04/17/16 [Rx] Gabapentin [Neurontin] 300 mg PO TID 09/09/16 [History] HydrOXYzine Pamoate [Vistaril] 50 mg PO Q6H PRN 09/09/16 [History] HYDROcodone/Acet 10/325 mg [[place] 10-325 mg] 1 tab PO Q6H PRN 03/11/17 [History] Lisinopril [Zestril] 20 mg PO DAILY 03/11/17 [History] Naproxen Sodium [Aleve] 220 mg PO Q12H PRN 03/11/17 [History] Loratadine [Claritin] 10 mg PO DAILY #30 tablet 05/03/17 [Rx] Allergies/Adverse Reactions: 3 Allergy/AdvReac Type Severity Reaction Status Date / Time codeine Allergy UNKNOWN Verified 03/11/17 15:25 REACTION Penicillins Allergy UNKNOWN Verified 03/11/17 15:25 REACTION Date of admission: 11/11/17 02:54 Primary care physician: Low Olmstead, - Constitutional Vitals: Temp Pulse Resp BP Pulse Ox 97.6 F 72 18 130/85 96 11/11/17 10:21 11/11/17 10:21 11/11/17 10:21 11/11/17 10:21 11/11/17 10:21 General appearance: Present: cooperative, A&O X 3, no acute distress, obese, answers questions appropriately - Respiratory Respiratory exam: Present: CTAB. Absent: accessory muscle use, rales, rhonchi, wheezes - Cardiovascular Cardiovascular exam: Present: RRR, +S1, +S2. Absent: diastolic murmur, gallop, rubs, systolic murmur - Patient Status Disposition: Home Health Service Condition: Good - Discharge Instructions Instructions: Syncope (DC) Follow Up With: Low Olmstead, [Primary Care Provider] - (please call your PCP for an appt.)
--- NOTE | 2017-11-11 15:52 | Physician Discharge Referral ---
Home Health/Hosp Referral Info Transfer to: Home Health - Diagnosis (1) Syncope Status: Acute (2) HTN (hypertension) Status: Chronic (3) COPD (chronic obstructive pulmonary disease) Status: Chronic (4) Hyperlipemia Status: Chronic (5) Tobacco abuse Status: Chronic (6) Dehydration Status: Acute (7) DVT prophylaxis Status: Acute (8) Anxiety Status: Acute (9) Goals of care, counseling/discussion Status: Acute - Respiratory Orders Smoking Cessation: Smoking cessation has been advised. For more information, call the [place] Tobacco Quit Line at 5-939-MNIK-NOW. - Services Needed Following services are medically necessary services: Nursing, Physical Therapy - Transfer Medications Home Medications: Aspirin 81 mg PO DAILY 02/08/15 [History] Atorvastatin [Lipitor] 10 mg PO HS 02/08/15 [History] Docusate [Colace] 100 mg PO DAILY PRN 02/08/15 [History] Budesonide/Formoterol 160/4.5 [Symbicort 160/4.5] 2 puff IH BIDR 02/11/15 [ History] Albuterol Sulfate [Albuterol Inhaler] 2 puff IH Q4HR PRN #1 hfa.aer.ad 04/17/16 [Rx] Gabapentin [Neurontin] 300 mg PO TID 09/09/16 [History] HydrOXYzine Pamoate [Vistaril] 50 mg PO Q6H PRN 09/09/16 [History] HYDROcodone/Acet 10/325 mg [[place] 10-325 mg] 1 tab PO Q6H PRN 03/11/17 [History] Lisinopril [Zestril] 20 mg PO DAILY 03/11/17 [History] Naproxen Sodium [Aleve] 220 mg PO Q12H PRN 03/11/17 [History] Loratadine [Claritin] 10 mg PO DAILY #30 tablet 05/03/17 [Rx] Allergies/Adverse Reactions: 3 Allergy/AdvReac Type Severity Reaction Status Date / Time codeine Allergy UNKNOWN Verified 03/11/17 15:25 REACTION Penicillins Allergy UNKNOWN Verified 03/11/17 15:25 REACTION Certification: Further, I certify that my clinical findings support that this patient is homebound (i.e. absences from home require considerable and taxing effort and are for medical reasons or adventist services or infrequently or short duration when for other reasons) because: Homebound Reason: Patient requires assistance of a person or device to safely leave home Attestation: My signature below is to certify that this patient is under my care and that I, or nurse practitioner, or a physician's legal administrative assistant working with me, has a face-to -face encounter with this patient.
--- NOTE | 2017-11-11 15:56 | Electrocardiograph Report ---
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
== END 2017-11-11 17:59 | disposition home health service (06) ==
LOC: EMEROO 21:42 → 2ANU 21:42 → SUATTDRO 11-11 02:54 → 2ANU 11-11 03:45
PROVIDERS: ADMIT Internal Medicine; ATTEND Hospitalist

== ENCOUNTER 2018-10-08 14:39 | Inpatient (IN) ==
[2018-10-08] MEDS ORDERED: Isovue-370 500 ML BOTTLE IVP ONE (14:43)
[2018-10-08] MEDS ORDERED: 0.9 % Sodium Chloride 1,000 ML IVC ONE ×2 (14:45→17:39)
[2018-10-08] MEDS ORDERED: Ketorolac 15 MG/ML VIAL IVP ONE (14:45)
--- NOTE | 2018-10-08 14:47 | Emergency Department Note ---
Disposition Clinical Impression: Generalized weakness, Abdominal pain, Urinary tract infection, Fever Disposition: Admitted As Inpatient Condition: Good General Adult HPI - General Stated complaint: abdominal pain Time Seen by Provider: 10/08/18 14:42 - Related Data Home Medications Medication Instructions Recorded Confirmed RX: Aspirin 81 mg PO DAILY 02/08/15 10/08/18 RX: Budesonide/Formoterol 160/4.5 2 puff IH BIDR 02/11/15 10/08/18 [Symbicort 160/4.5] RX: Gabapentin [Neurontin] 400 mg PO TID 09/09/16 10/08/18 RX: Albuterol Sulfate [Ventolin 2 puff IH Q4H PRN 08/17/18 10/08/18 Hfa] RX: Atorvastatin [Lipitor] 10 mg PO HS 08/17/18 10/08/18 RX: Nitroglycerin [Nitrostat] 0.4 mg SL AD PRN MDD Q15 MINUTES 08/17/18 09/28/18 MAX 3 DOSES/911 Venlafaxine [Effexor] 50 mg PO DAILY 09/28/18 09/28/18 Previous Rx's Medication Instructions Recorded RX: hydrOXYzine pamoate 50 mg PO Q6H PRN #20 capsule 08/20/18 [HydrOXYzine Pamoate] Allergies Allergy/AdvReac Type Severity Reaction Status Date / Time codeine Allergy UNKNOWN Verified 09/28/18 15:22 REACTION Penicillins Allergy UNKNOWN Verified 09/28/18 15:22 REACTION Past Medical History - Past Medical History Medical history: Reports: COPD, hyperlipidemia, hypertension, other Surgical history: Reports: non-contributory, breast surgery, , cholecystectomy, hip replacement, hysterectomy, knee replacement, other Psychiatric history: Reports: anxiety, depression - Social History Smoking Status: Current every day smoker Smokeless Tobacco Status: No Alcohol use: Reports: none Drug use: Reports: none Course Vital Signs Temperature 102.3 F H 10/08/18 14:43 Pulse Rate 107 10/08/18 14:43 Respiratory Rate 18 10/08/18 14:43 Blood Pressure 111/58 10/08/18 14:43 O2 Sat by Pulse Oximetry 96 10/08/18 14:43 Temperature 99.6 F 10/09/18 06:51 Pulse Rate 76 10/09/18 06:51 Respiratory Rate 16 10/09/18 07:51 Blood Pressure 120/65 10/09/18 06:51 O2 Sat by Pulse Oximetry 93 10/09/18 07:51 Oxygen Delivery Oxygen Delivery Room Air Medical Decision Making - Lab Data Result diagrams: 10/09/18 00:31 10/09/18 00:31 Lab Results 10/08/18 10/08/18 10/08/18 Range/Units 15:07 15:07 15:07 WBC 12.2 H (4.3-11.1) K/mcL RBC 5.48 H (3.82-4.97) M/mcL Hgb 15.6 H (11.5-15.4) g/dL Hct 48.5 H (35.3-44.9) % MCV 88.5 (83.0-100.0) fL MCH 28.5 (28.0-33.3) pg MCHC 32.2 (31.6-35.5) g/dL RDW 15.9 H (11.5-14.5) % Plt Count 183 (140-400) K/mcL MPV 9.8 (9.4-12.4) fL Immature Gran % 0.4 (0-4) % Seg Neutrophils % 92.9 % Lymphocytes % 3.3 % Monocytes % 2.5 % Eosinophils % 0.6 % Basophils % 0.3 % Neutrophils # 11.3 H (1.6-8.9) K/mcL Lymphocytes # 0.4 L (0.6-4.6) K/mcL Monocytes # 0.3 (0.0-1.3) K/mcL Eosinophils # 0.1 (0.0-0.6) K/mcL Basophils # 0.0 (0.0-0.2) K/mcL Sodium 139 (136-145) mEq/L Potassium 4.2 (3.5-5.1) mEq/L Chloride 107 (98-107) mEq/L Carbon Dioxide 25 (23-29) mEq/L BUN 30 H (8-23) mg/dL Creatinine 0.95 (0.60-1.20) mg/dL Est GFR ( Amer) > 60 (> 60) Est GFR (Non-Af Amer) 57 L (> 60) BUN/Creatinine Ratio 32 H (6-26) Glucose 99 (70-105) mg/dL Calculated Osmolality 294 (280-300) Lactic Acid 1.4 (0.5-2.2) mmol/L Calcium 9.5 (8.6-10.3) mg/dL Total Bilirubin 1.3 H (0.3-1.0) mg/dL AST 13 (13-39) Units/L ALT 6 L (7-52) Units/L Alkaline Phosphatase 136 H (34-104) Units/L Serum Total Protein 7.0 (6.4-8.9) g/dL Albumin 4.0 (3.5-5.7) g/dL Globulin 3.0 (2.4-3.5) g/dL Albumin/Globulin Ratio 1.3 (1.1-2.2) Lipase 26 (11-82) Units/L Urine Color (Yellow) Urine Clarity (Clear) Urine pH (5.0-8.0) pH Units Ur Specific [place] (1.010-1.025) Urine Protein (Neg-Trace) mg/dL Urine Glucose (UA) (Normal) mg/dL Urine Ketones (Negative) mg/dL Urine Blood (Negative) Urine Nitrite (Negative) Urine Bilirubin (Negative) Urine Urobilinogen (Normal) mg/dL Ur Leukocyte Esterase (Negative) Urine Microscopic RBC (0-3) per hpf Urine Microscopic WBC (0-3) per hpf Ur Squamous Epith Cells (None-Few) per lpf Urine Bacteria (None-Few) per hpf Hyaline Casts (None-Few) per lpf A. baumannii (PCR) (Not Detect) Alyhsa albicans (PCR) (Not Detect) C. glabrata (PCR) (Not Detect) C. krusei (PCR) (Not Detect) C. parapsilosis (PCR) (Not Detect) C. tropicalis (PCR) (Not Detect) Enterobacteriac sp PCR (Not Detect) E. cloacae complex PCR (Not Detect) Enterococcus sp PCR (Not Detect) E. coli (PCR) (Not Detect) H. influenzae (PCR) (Not Detect) Klebsiella oxytoca PCR (Not Detect) Klebsiella pneumoniae (Not Detect) List. monocytogenes PCR (Not Detect) N. meningitidis (PCR) (Not Detect) Proteus species (PCR) (Not Detect) Serratia marcescens PCR (Not Detect) Staphylococcus sp PCR (Not Detect) Staph aureus (PCR) (Not Detect) mecA-Methicil Res Gene (Not Detect) Streptococcus sp PCR (Not Detect) Group A Strep DNA (Not Detect) Group B Strep (PCR) (Not Detect) Strep pneumoniae (PCR) (Not Detect) P. aeruginosa (PCR) (Not Detect) Michel/B-Vanco Res Genes (Not Detect) KPC (blaKPC) Detect PCR (Not Detect) 10/08/18 10/08/18 Range/Units 15:07 15:15 WBC (4.3-11.1) K/mcL RBC (3.82-4.97) M/mcL Hgb (11.5-15.4) g/dL Hct (35.3-44.9) % MCV (83.0-100.0) fL MCH (28.0-33.3) pg MCHC (31.6-35.5) g/dL RDW (11.5-14.5) % Plt Count (140-400) K/mcL MPV (9.4-12.4) fL Immature Gran % (0-4) % Seg Neutrophils % % Lymphocytes % % Monocytes % % Eosinophils % % Basophils % % Neutrophils # (1.6-8.9) K/mcL Lymphocytes # (0.6-4.6) K/mcL Monocytes # (0.0-1.3) K/mcL Eosinophils # (0.0-0.6) K/mcL Basophils # (0.0-0.2) K/mcL Sodium (136-145) mEq/L Potassium (3.5-5.1) mEq/L Chloride (98-107) mEq/L Carbon Dioxide (23-29) mEq/L BUN (8-23) mg/dL Creatinine (0.60-1.20) mg/dL Est GFR ( Amer) (> 60) Est GFR (Non-Af Amer) (> 60) BUN/Creatinine Ratio (6-26) Glucose (70-105) mg/dL Calculated Osmolality (280-300) Lactic Acid (0.5-2.2) mmol/L Calcium (8.6-10.3) mg/dL Total Bilirubin (0.3-1.0) mg/dL AST (13-39) Units/L ALT (7-52) Units/L Alkaline Phosphatase (34-104) Units/L Serum Total Protein (6.4-8.9) g/dL Albumin (3.5-5.7) g/dL Globulin (2.4-3.5) g/dL Albumin/Globulin Ratio (1.1-2.2) Lipase (11-82) Units/L Urine Color Yellow (Yellow) Urine Clarity Clear (Clear) Urine pH 6.5 (5.0-8.0) pH Units Ur Specific [place] 1.013 (1.010-1.025) Urine Protein Negative (Neg-Trace) mg/dL Urine Glucose (UA) Normal (Normal) mg/dL Urine Ketones Negative (Negative) mg/dL Urine Blood Negative (Negative) Urine Nitrite Positive A (Negative) Urine Bilirubin Negative (Negative) Urine Urobilinogen Normal (Normal) mg/dL Ur Leukocyte Esterase Negative (Negative) Urine Microscopic RBC 0-3 (0-3) per hpf Urine Microscopic WBC 0-3 (0-3) per hpf Ur Squamous Epith Cells Many H (None-Few) per lpf Urine Bacteria Many H (None-Few) per hpf Hyaline Casts None Seen (None-Few) per lpf A. baumannii (PCR) Not Detected (Not Detect) Alysha albicans (PCR) Not Detected (Not Detect) C. glabrata (PCR) Not Detected (Not Detect) C. krusei (PCR) Not Detected (Not Detect) C. parapsilosis (PCR) Not Detected (Not Detect) C. tropicalis (PCR) Not Detected (Not Detect) Enterobacteriac sp PCR Not Detected (Not Detect) E. cloacae complex PCR Not Detected (Not Detect) Enterococcus sp PCR Not Detected (Not Detect) E. coli (PCR) Not Detected (Not Detect) H. influenzae (PCR) Not Detected (Not Detect) Klebsiella oxytoca PCR Not Detected (Not Detect) Klebsiella pneumoniae Not Detected (Not Detect) List. monocytogenes PCR Not Detected (Not Detect) N. meningitidis (PCR) Not Detected (Not Detect) Proteus species (PCR) Not Detected (Not Detect) Serratia marcescens PCR Not Detected (Not Detect) Staphylococcus sp PCR Not Detected (Not Detect) Staph aureus (PCR) Not Detected (Not Detect) mecA-Methicil Res Gene N/A (Not Detect) Streptococcus sp PCR Not Detected (Not Detect) Group A Strep DNA Not Detected (Not Detect) Group B Strep (PCR) Not Detected (Not Detect) Strep pneumoniae (PCR) Not Detected (Not Detect) P. aeruginosa (PCR) Not Detected (Not Detect) Michel/B-Vanco Res Genes N/A (Not Detect) KPC (blaKPC) Detect PCR N/A (Not Detect) Attestation Statement - Attestation Attestation: I examined this patient and my medical decision-making was reviewed with the Resident Physician. I agree with the documented findings, disposition and treatment plan as described except to the extent set forth below. [id number] time provided in conjunction with resident physician Patient arrives by EMS with reports of abdominal pain. The patient is a poor historian. There is questionable history of previous intra-abdominal "masses." I have discussed the plan of care and management with the resident physician 14:51: Patient meets SIRS criteria
[2018-10-08 15:19] LABS: Basophils % 0.3 %; Eosinophils # 0.1 K/mcL (0.0-0.6); Eosinophils % 0.6 %; Hematocrit 48.5 % (35.3-44.9); Hemoglobin 15.6 g/dL (11.5-15.4); Immature Granulocytes % 0.4 % (0-4); Lymphocytes # 0.4 K/mcL (0.6-4.6); Lymphocytes % 3.3 %; Mean Corpuscular HGB Conc 32.2 g/dL (31.6-35.5); Mean Corpuscular Hemoglobin 28.5 pg (28.0-33.3); Mean Corpuscular Volume 88.5 fL (83.0-100.0); Mean Platelet Volume 9.8 fL (9.4-12.4); Monocytes # 0.3 K/mcL (0.0-1.3); Monocytes % 2.5 %; Neutrophils # 11.3 K/mcL (1.6-8.9); Platelet Count 183 K/mcL (140-400); Red Blood Count 5.48 M/mcL (3.82-4.97); Red Cell Distribution Width 15.9 % (11.5-14.5); Segmented Neutrophils % 92.9 %
--- NOTE | 2018-10-08 15:21 | Emergency Department Note ---
Disposition Clinical Impression: Generalized weakness Abdominal pain Qualifiers: Abdominal location: unspecified location Qualified Code(s): R10.9 - Unspecified abdominal pain Urinary tract infection Qualifiers: Urinary tract infection type: site unspecified Hematuria presence: without valentino turia Qualified Code(s): N39.0 - Urinary tract infection, site not specified Fever Qualifiers: Fever type: unspecified Qualified Code(s): R50.9 - Fever, unspecified Disposition: Admitted As Inpatient Condition: Good Time of Disposition: 18:09 Abdominal Pain HPI - General Chief Complaint: ED Abdominal Pain Stated Complaint: abdominal pain Time Seen by Provider: 10/08/18 14:42 Source: patient, EMS Mode of arrival: EMS Limitations: no limitations Nursing Notes Reviewed: Yes Vital Signs Reviewed: Yes - History of Present Illness HPI Narrative: 78-year-old female presents to the emergency department via EMS for multiple complaints. States earlier today developing diffuse abdominal pain. Patient is a poor historian and cannot elaborate other factors. She has been taking gabapentin to help with this pain as well as her chronic pain without significant relief. She has had a similar history and reports abdominal masses. She reports a workup that was negative for cancer. She is also reporting some burning in her lower extremities as well as a slight headache that developed on arrival here. Denies any slurring of her speech or extremity weakness. She does report some coughing and congestion over the past few days. She was noted to have a fever by EMS. She lives at home by herself. She has been taken Tylenol without any relief. Denies any urinary symptoms. Denies any diarrhea or constipation. Pt Subjective Complaint: abdominal pain Pain Scale: 5 - Related Data Home Medications Medication Instructions Recorded Confirmed Aspirin 81 mg PO DAILY 02/08/15 09/28/18 Budesonide/Formoterol 160/4.5 2 puff IH BIDR 02/11/15 09/28/18 [Symbicort 160/4.5] Gabapentin [Neurontin] 300 mg PO TID 09/09/16 09/28/18 Lisinopril [Zestril] 10 mg PO DAILY 03/11/17 09/28/18 Albuterol Sulfate [Ventolin Hfa] 2 puff IH Q4H PRN 08/17/18 09/28/18 Atorvastatin [Lipitor] 10 mg PO HS 08/17/18 09/28/18 Nitroglycerin [Nitrostat] 0.4 mg SL AD PRN MDD Q15 MINUTES 08/17/18 09/28/18 MAX 3 DOSES/911 Venlafaxine [Effexor] 50 mg PO DAILY 09/28/18 09/28/18 Previous Rx's Medication Instructions Recorded hydrOXYzine pamoate [HydrOXYzine 50 mg PO Q6H PRN #20 capsule 08/20/18 Pamoate] Allergies Allergy/AdvReac Type Severity Reaction Status Date / Time codeine Allergy UNKNOWN Verified 09/28/18 15:22 REACTION Penicillins Allergy UNKNOWN Verified 09/28/18 15:22 REACTION All systems ED: reviewed and negative except as stated. Review of Systems: As Per HPI Constitutional: Reports: fever. Denies: chills ENT ED: Reports: congestion Cardiovascular: Denies: chest pain Respiratory: Reports: cough. Denies: dyspnea Gastrointestinal: Reports: abdominal pain. Denies: nausea, vomiting, diarrhea, constipation Genitourinary: Denies: dysuria Musculoskeletal: Denies: back pain Integumentary: Denies: rash, abrasion Neurological: Reports: headache Abdominal Pain PMH - Past Medical History Medical history: Reports: COPD, hyperlipidemia, hypertension, other Female Surgical History: Reports: , hip replacement, knee replacement, other Psychiatric history: Reports: anxiety, depression - Social History Smoking status: Current every day smoker Alcohol use: Reports: none Drug use: Reports: none Physical Exam - General Limitations: no limitations General appearance: alert, in no apparent distress - Head Head exam: atraumatic, normocephalic, normal inspection - Eye Eye exam: Present: normal appearance, PERRL, EOMI - ENT ENT exam: normal exam, normal oropharynx, mucous membranes dry - Neck Neck exam: Present: normal inspection, full ROM, trachea midline - Chest Chest inspection: Present: normal inspection, symmetric chest wall rise - Respiratory Respiratory exam: Present: normal lung sounds bilaterally. Absent: respiratory distress, wheezes - Cardiovascular Cardiovascular exam: Present: regular rate, normal rhythm, normal heart sounds - Abdominal Exam Abdominal exam: Present: soft, tenderness, normal bowel sounds. Absent: distention, guarding, rebound, rigidity, Licea's sign, tenderness at McBurney's Point Abdominal tenderness: Present: diffuse - Extremities Exam Extremities exam: Present: normal inspection, full ROM. Absent: tenderness, pedal edema - Neurological Exam Neurological exam: Present: alert - Psychiatric Psychiatric exam: Present: normal affect, normal mood - Skin Skin exam: Present: warm, dry, intact, normal color. Absent: rash, cyanosis, diaphoresis Course Course Narrative: Patient is a poor historian complaining of generalized abdominal pain. Symptoms started this morning. She meets sepsis criteria with tachycardia and fever. Sepsis workup initiated including CT scan of her abdomen and pelvis. Urinary straight cath for sample. Tylenol given for fever. - Reevaluation(s) Reevaluation #1: Leukocytosis of 12. Lactate is normal 1.4. Her total bilirubin is 1.2. Her CT scan showed speculated mass that was seen on prior. Her biopsy showed atypical cells however per the report a poor sample was obtained. The daughter is now present at the room and states the patient has been describing generalized weakness. She has not been able to eat or drink as well she should. She lives with her other daughter. Patient otherwise is not septic appearing. Her urine shows a positive nitrites which could be the source of her infection. She will receive a dose of ceftriaxone and continued monitoring here by being admitted to the hospital. Her family members are in agreement with this plan. Reevaluation #2: Reevaluation patient is slightly hypotensive but blood fluid responsive. Will continue to monitor. She will receive a 2nd liter of normal saline. Her current blood pressure is systolic 93/53. Review of her past vital signs she typically has a systolic between 90 to 100. Influenza is negative. She continues to report some discomfort but now in her hip. She has a prior hip replacement. Time: 18:07 - Consultations Consultation #1: Spoke with on-call hospitalist paula Ball to admit for UTI, generalized weakness, fever. No further orders at this time Vital Signs Temperature 102.3 F H 10/08/18 14:43 Pulse Rate 107 10/08/18 14:43 Respiratory Rate 18 10/08/18 14:43 Blood Pressure 111/58 10/08/18 14:43 O2 Sat by Pulse Oximetry 96 10/08/18 14:43 Temperature 98.8 F 10/08/18 17:54 Pulse Rate 105 10/08/18 18:17 Respiratory Rate 18 10/08/18 16:57 Blood Pressure 92/53 10/08/18 18:17 O2 Sat by Pulse Oximetry 96 10/08/18 16:57 Oxygen Delivery Oxygen Delivery Room Air Abdominal Pain - MDM Narrative Medical decision making narrative: Patient was discussed with my attending physician who agrees with ED management and final disposition. They independently evaluated the patient. Please refer to their attestation to this encounter for additional information. This note was generated by [id number] voice recognition software and as a result grammatical or spelling errors may occur using this program. - Medical Records Medical records reviewed: Yes I reviewed the patient's medical records. - Lab Data Lab results reviewed: Yes I reviewed the patient's lab results. Result diagrams: 10/08/18 15:07 10/08/18 15:07 Lab Results 10/08/18 10/08/18 10/08/18 Range/Units 15:07 15:07 15:07 WBC 12.2 H (4.3-11.1) K/mcL RBC 5.48 H (3.82-4.97) M/mcL Hgb 15.6 H (11.5-15.4) g/dL Hct 48.5 H (35.3-44.9) % MCV 88.5 (83.0-100.0) fL MCH 28.5 (28.0-33.3) pg MCHC 32.2 (31.6-35.5) g/dL RDW 15.9 H (11.5-14.5) % Plt Count 183 (140-400) K/mcL MPV 9.8 (9.4-12.4) fL Immature Gran % 0.4 (0-4) % Seg Neutrophils % 92.9 % Lymphocytes % 3.3 % Monocytes % 2.5 % Eosinophils % 0.6 % Basophils % 0.3 % Neutrophils # 11.3 H (1.6-8.9) K/mcL Lymphocytes # 0.4 L (0.6-4.6) K/mcL Monocytes # 0.3 (0.0-1.3) K/mcL Eosinophils # 0.1 (0.0-0.6) K/mcL Basophils # 0.0 (0.0-0.2) K/mcL Sodium 139 (136-145) mEq/L Potassium 4.2 (3.5-5.1) mEq/L Chloride 107 (98-107) mEq/L Carbon Dioxide 25 (23-29) mEq/L BUN 30 H (8-23) mg/dL Creatinine 0.95 (0.60-1.20) mg/dL Est GFR ( Amer) > 60 (> 60) Est GFR (Non-Af Amer) 57 L (> 60) BUN/Creatinine Ratio 32 H (6-26) Glucose 99 (70-105) mg/dL Calculated Osmolality 294 (280-300) Lactic Acid 1.4 (0.5-2.2) mmol/L Calcium 9.5 (8.6-10.3) mg/dL Total Bilirubin 1.3 H (0.3-1.0) mg/dL AST 13 (13-39) Units/L ALT 6 L (7-52) Units/L Alkaline Phosphatase 136 H (34-104) Units/L Serum Total Protein 7.0 (6.4-8.9) g/dL Albumin 4.0 (3.5-5.7) g/dL Globulin 3.0 (2.4-3.5) g/dL Albumin/Globulin Ratio 1.3 (1.1-2.2) Lipase 26 (11-82) Units/L Urine Color (Yellow) Urine Clarity (Clear) Urine pH (5.0-8.0) pH Units Ur Specific [place] (1.010-1.025) Urine Protein (Neg-Trace) mg/dL Urine Glucose (UA) (Normal) mg/dL Urine Ketones (Negative) mg/dL Urine Blood (Negative) Urine Nitrite (Negative) Urine Bilirubin (Negative) Urine Urobilinogen (Normal) mg/dL Ur Leukocyte Esterase (Negative) Urine Microscopic RBC (0-3) per hpf Urine Microscopic WBC (0-3) per hpf Ur Squamous Epith Cells (None-Few) per lpf Urine Bacteria (None-Few) per hpf Hyaline Casts (None-Few) per lpf 10/08/18 Range/Units 15:15 WBC (4.3-11.1) K/mcL RBC (3.82-4.97) M/mcL Hgb (11.5-15.4) g/dL Hct (35.3-44.9) % MCV (83.0-100.0) fL MCH (28.0-33.3) pg MCHC (31.6-35.5) g/dL RDW (11.5-14.5) % Plt Count (140-400) K/mcL MPV (9.4-12.4) fL Immature Gran % (0-4) % Seg Neutrophils % % Lymphocytes % % Monocytes % % Eosinophils % % Basophils % % Neutrophils # (1.6-8.9) K/mcL Lymphocytes # (0.6-4.6) K/mcL Monocytes # (0.0-1.3) K/mcL Eosinophils # (0.0-0.6) K/mcL Basophils # (0.0-0.2) K/mcL Sodium (136-145) mEq/L Potassium (3.5-5.1) mEq/L Chloride (98-107) mEq/L Carbon Dioxide (23-29) mEq/L BUN (8-23) mg/dL Creatinine (0.60-1.20) mg/dL Est GFR ( Amer) (> 60) Est GFR (Non-Af Amer) (> 60) BUN/Creatinine Ratio (6-26) Glucose (70-105) mg/dL Calculated Osmolality (280-300) Lactic Acid (0.5-2.2) mmol/L Calcium (8.6-10.3) mg/dL Total Bilirubin (0.3-1.0) mg/dL AST (13-39) Units/L ALT (7-52) Units/L Alkaline Phosphatase (34-104) Units/L Serum Total Protein (6.4-8.9) g/dL Albumin (3.5-5.7) g/dL Globulin (2.4-3.5) g/dL Albumin/Globulin Ratio (1.1-2.2) Lipase (11-82) Units/L Urine Color Yellow (Yellow) Urine Clarity Clear (Clear) Urine pH 6.5 (5.0-8.0) pH Units Ur Specific [place] 1.013 (1.010-1.025) Urine Protein Negative (Neg-Trace) mg/dL Urine Glucose (UA) Normal (Normal) mg/dL Urine Ketones Negative (Negative) mg/dL Urine Blood Negative (Negative) Urine Nitrite Positive A (Negative) Urine Bilirubin Negative (Negative) Urine Urobilinogen Normal (Normal) mg/dL Ur Leukocyte Esterase Negative (Negative) Urine Microscopic RBC 0-3 (0-3) per hpf Urine Microscopic WBC 0-3 (0-3) per hpf Ur Squamous Epith Cells Many H (None-Few) per lpf Urine Bacteria Many H (None-Few) per hpf Hyaline Casts None Seen (None-Few) per lpf - Radiology Data Radiology results reviewed: Yes I reviewed the patient's radiology results. Abdomen/Pelvis CT 10/08/18 14:43 IMPRESSION: 1. Nonspecific inflammatory changes of the small bowel adjacent to spiculated mesenteric mass described previously. Correlate with results from prior CT biopsy 08/18/2018. 2. Trace reactive pelvic fluid. 3. Nonobstructing punctate calculi bilateral kidneys. 4. Remainder of the CT abdomen and pelvis appears unremarkable. D/ / Joe Wills / Joe Wills Interpreting Provider: Joe Wills Chest X-Ray 10/08/18 14:46 IMPRESSION: 1. No radiographic evidence of acute cardiopulmonary process. 2. Findings suggestive of COPD. 3. Mildly enlarged unchanged cardiomediastinal silhouette. D/ / Beau Silva MD / Beau Silva MD Interpreting Provider: Beau Silva MD
[2018-10-08 15:27] LABS: Bilirubin,Urine Negative (Negative); Blood,Urine Negative (Negative); Clarity,Urine Clear (Clear); Color,Urine Yellow (Yellow); Glucose,Urine (UA) Normal (Normal); Ketones,Urine Negative (Negative); Leukocyte Esterase,Urine Negative (Negative); Nitrite,Urine Positive (Negative); PH,Urine 6.5 pH Units (5.0-8.0); Protein,Urine Negative (Neg-Trace); Specific Gravity,Urine 1.013 (1.010-1.025); Urobilinogen,Urine Normal (Normal)
[2018-10-08 15:30] LABS: Bacteria,Urine Many per hpf (None-Few); Hyaline Casts,Urine None Seen per lpf (None-Few); RBC,Urine 0-3 per hpf (0-3); Squamous Epithelial Cell,Urine Many per lpf (None-Few); WBC,Urine 0-3 per hpf (0-3)
[2018-10-08 15:42] LABS: Alanine Aminotransferase 6 Units/L (7-52); Albumin/Globulin Ratio 1.3 (1.1-2.2); Alkaline Phosphatase 136 Units/L (34-104); Aspartate Amino Transferase 13 Units/L (13-39); BUN/Creatinine Ratio 32 (6-26); Bilirubin,Total 1.3 mg/dL (0.3-1.0); Blood Urea Nitrogen 30 mg/dL (8-23); Calcium 9.5 mg/dL (8.6-10.3); Carbon Dioxide 25 mEq/L (23-29); Chloride 107 mEq/L (98-107); Glucose 99 mg/dL (70-105); Lipase 26 Units/L (11-82); Osmolality,Calculated 294 (280-300); Potassium 4.2 mEq/L (3.5-5.1); Sodium 139 mEq/L (136-145); eGFR For Non-African Americans 57 (> 60)
[2018-10-08] MEDS ORDERED: cefTRIAXone 1,000 MG in Water for inj. (sterile) 20 ML 10 ML IVP ONE (17:28)
[2018-10-08] MEDS ORDERED: Ondansetron 4 MG/2 ML VIAL IVP PRN (18:18)
[2018-10-08] MEDS ORDERED: Naloxone 0.4 MG/ML INJ IVP PRN (18:18)
[2018-10-08] MEDS ORDERED: Ipratropium/Albuterol Neb 3 ML IH PRN (18:21)
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
[2018-10-08] MEDS: 0.9 % Sodium Chloride 1,000 ML IVC SCH (20:09)
[2018-10-09] MEDS: Gabapentin 400 MG CAPSULE PO SCH ×4 (00:32→23:06)
[2018-10-09 01:19] LABS: Basophils % 0.3 %; Eosinophils % 0.3 %; Hematocrit 41.7 % (35.3-44.9); Immature Platelets 2.8 % (1.1-6.1); Lymphocytes # 0.5 K/mcL (0.6-4.6); Lymphocytes % 3.5 %; Mean Corpuscular HGB Conc 32.1 g/dL (31.6-35.5); Mean Corpuscular Hemoglobin 28.8 pg (28.0-33.3); Mean Corpuscular Volume 89.7 fL (83.0-100.0); Mean Platelet Volume 10.8 fL (9.4-12.4); Monocytes # 0.5 K/mcL (0.0-1.3); Monocytes % 3.1 %; Neutrophils # 13.5 K/mcL (1.6-8.9); Platelet Count 157 K/mcL (140-400); Red Blood Count 4.65 M/mcL (3.82-4.97); Red Cell Distribution Width 16.1 % (11.5-14.5); Segmented Neutrophils % 91.8 %
[2018-10-09 01:21] LABS: Hemoglobin 13.4 g/dL (11.5-15.4)
[2018-10-09 01:31] LABS: Adenovirus Not Detected (Not Detect); Bordetella Pertussis Not Detected (Not Detect); Chlamydophila pneumoniae Not Detected (Not Detect); Coronavirus 229E Not Detected (Not Detect); Coronavirus HKU1 Not Detected (Not Detect); Coronavirus NL63 Not Detected (Not Detect); Coronavirus OC43 Not Detected (Not Detect); Human Metapneumovirus Not Detected (Not Detect); Human Rhinovirus/Enterovirus Not Detected (Not Detect); Influenza A Subtype 2009 H1 Not Detected (Not Detect); Influenza A Untypeable Not Detected (Not Detect); Influenza B Not Detected (Not Detect); Mycoplasma pneumoniae Not Detected (Not Detect); Parainfluenza Virus 1 Not Detected (Not Detect); Parainfluenza Virus 2 Not Detected (Not Detect); Parainfluenza Virus 3 Not Detected (Not Detect); Parainfluenza Virus 4 Not Detected (Not Detect); Respiratory Syncytial Virus Not Detected (Not Detect)
[2018-10-09 01:31] LABS: BUN/Creatinine Ratio 27 (6-26); Blood Urea Nitrogen 27 mg/dL (8-23); Calcium 8.4 mg/dL (8.6-10.3); Carbon Dioxide 22 mEq/L (23-29); Chloride 110 mEq/L (98-107); Glucose 114 mg/dL (70-105); Magnesium 1.8 mg/dL (1.6-2.6); Osmolality,Calculated 298 (280-300); Phosphorous 3.2 mg/dL (2.7-4.5); Potassium 3.9 mEq/L (3.5-5.1); Sodium 141 mEq/L (136-145); eGFR For Non-African Americans 53 (> 60)
[2018-10-09] MEDS: 0.9 % Sodium Chloride 1,000 ML IVC SCH ×3 (04:14→23:07)
[2018-10-09] MEDS: Budesonide/Formoterol 160/4.5 1 PUFF INH IH SCH ×2 (07:50→22:09)
[2018-10-09 08:22] LABS: Acinetobacter baumannii by PCR Not Detected (Not Detect); Candida albicans by PCR Not Detected (Not Detect); Candida glabrata by PCR Not Detected (Not Detect); Candida krusei by PCR Not Detected (Not Detect); Candida parapsilosis by PCR Not Detected (Not Detect); Candida tropicalis by PCR Not Detected (Not Detect); Enterobacter cloacae Cmplx PCR Not Detected (Not Detect); Enterobacteriaceae by PCR Not Detected (Not Detect); Enterococcus by PCR Not Detected (Not Detect); Escherichia coli by PCR Not Detected (Not Detect); Klebsiella oxytoca by PCR Not Detected (Not Detect); Klebsiella pneumoniae by PCR Not Detected (Not Detect); Proteus by PCR Not Detected (Not Detect); Pseudomonas aeruginosa by PCR Not Detected (Not Detect); Serratia marcescens by PCR Not Detected (Not Detect); Staphylococcus aureus by PCR Not Detected (Not Detect); Staphylococcus by PCR Not Detected (Not Detect); Streptococcus agalactiae(B)PCR Not Detected (Not Detect); Streptococcus by PCR Not Detected (Not Detect); Streptococcus pneumoniae PCR Not Detected (Not Detect); Streptococcus pyogenes (A) PCR Not Detected (Not Detect)
[2018-10-09] MEDS ORDERED: Vancomycin (wt based) 1,000 MG VIAL IVPB SCH (09:00)
[2018-10-09] MEDS: *HR* Heparin 5,000 UNIT/ML VIAL SQ SCH ×2 (11:09→16:42)
[2018-10-09] MEDS: Aspirin 81 MG TAB.CHEW PO SCH (11:09)
[2018-10-09] MEDS: cefTRIAXone 1,000 MG in Water for inj. (sterile) 20 ML 10 ML IVP SCH (11:10)
[2018-10-09] MEDS ORDERED: Acetaminophen 325 MG TABLET PO PRN (11:15)
--- NOTE | 2018-10-09 11:18 | Internal Med Progress Note ---
Hospitalist Progress Note - Encounter Date of Encounter: 10/09/18 Time of Encounter: 11:16 - Subjective Interval History: Patient seen and examined at bedside. Pt sitting in bed, appears more alert and awake compared to previous day. States she feels better but still feels very weak. Overnight a mathis cathter was placed due to unclear reason. Pt reporting discomfort due to mathis catheter. She was noted to be febrile overnight and blood cultures positive with gram positive cocci and gram positive rods. She denies any sob, cough, chest pain, abd pain, n/v, fever, or chills at this time. Ten point ROS is negative except as listed above. Pt encouraged to get out of bed to chair and increase activity as tolerated with assistance RN requested to discontinue mathis catheter - Exam Vitals: Temp Pulse Resp BP Pulse Ox 99.6 F 76 16 120/65 93 10/09/18 06:51 10/09/18 06:51 10/09/18 07:51 10/09/18 06:51 10/09/18 07:51 Exam: General: No acute distress, AAO x 3, frail appearing elderly female HEENT: EOMI, NC/AT, no scleral icterus Respiratory: Clear to auscultate bilaterally, no wheezing, no rales Cardiovascular: Regular, Rate, Rhythm, + murmurs GI: Soft, Non tender, non distended, normal bowel sounds Ext: No edema, no tenderness, positive pulses Neuro: AAO x 3, no focal deficits Rest of the clinical exam is non contributory - Summary of Assessment and Plan Summary of Assessment and Plan: Ms. Cobos is a 78 year old female with PMH of anxiety, COPD, HLD, HTN, mesenteric mass who presents to the ER for management of abdominal pain. Assessment/Plan: 1. Severe sepsis likely secondary to UTI and bacteremia Blood culture prelim report: gram positive cocci and rods. Will add Vancomycin IV (pharmacy to dose) continue urine cultures reporting no growth thus far will repeat blood cultures continue IV fluids will closely monitor for signs of volume overload closely monitor BP to maintain MAP> 65 BP improved Hold all antihypertensive medications at this time pain control 2. DVT ppx: Heparin SQ 3. Abd pain likely secondary to UTI vs. underlying mesenteric mass continue supportive care Co-morbidities: COPD, HTN, HLD, anxiety restarted necessary home medications Pt encouraged to get out of bed to chair with assistance and increase activity as tolerated with assistance Care plan discussed with Patient/RN Code status: Full code - Time Spent with Patient Total time spent is greater than 50% in coordination of care (as documented) at patient's floor/unit and/or counseling patient: 25 - 35 minutes Internal Medicine: Result - Labs CBC & Chem 7: 10/09/18 00:31 10/09/18 00:31 Labs: Short CBC 10/08/18 10/09/18 Range/Units 15:07 00:31 WBC 12.2 H 14.7 H (4.3-11.1) K/mcL Hgb 15.6 H 13.4 D (11.5-15.4) g/dL Hct 48.5 H 41.7 (35.3-44.9) % Plt Count 183 157 (140-400) K/mcL Neutrophils # 11.3 H 13.5 H (1.6-8.9) K/mcL BMP 10/08/18 10/09/18 15:07 00:31 Sodium 139 141 Potassium 4.2 3.9 Chloride 107 110 H Carbon Dioxide 25 22 L BUN 30 H 27 H Creatinine 0.95 1.01 Glucose 99 114 H Calcium 9.5 8.4 L Liver Function 10/08/18 Range/Units 15:07 Total Bilirubin 1.3 H (0.3-1.0) mg/dL AST 13 (13-39) Units/L ALT 6 L (7-52) Units/L Alkaline Phosphatase 136 H (34-104) Units/L Albumin 4.0 (3.5-5.7) g/dL Urine 10/08/18 Range/Units 15:15 Urine Color Yellow (Yellow) Urine Clarity Clear (Clear) Urine pH 6.5 (5.0-8.0) pH Units Ur Specific [place] 1.013 (1.010-1.025) Urine Protein Negative (Neg-Trace) mg/dL Urine Glucose (UA) Normal (Normal) mg/dL - Impressions Impressions Abdomen/Pelvis CT 10/08/18 14:43 IMPRESSION: 1. Nonspecific inflammatory changes of the small bowel adjacent to spiculated mesenteric mass described previously. Correlate with results from prior CT biopsy 08/18/2018. 2. Trace reactive pelvic fluid. 3. Nonobstructing punctate calculi bilateral kidneys. 4. Remainder of the CT abdomen and pelvis appears unremarkable. D/ / Joe Wills / Joe Wills Interpreting Provider: Joe Wills Chest X-Ray 10/08/18 14:46 IMPRESSION: 1. No radiographic evidence of acute cardiopulmonary process. 2. Findings suggestive of COPD. 3. Mildly enlarged unchanged cardiomediastinal silhouette. D/ / Beau Silva MD / Beau Silva MD Interpreting Provider: Beau Silva MD Consult Discharge Plan - Plan Referrals: NONE,PCP [Primary Care Provider] -
[2018-10-09] MEDS ORDERED: *HR* HYDROcodone/Acet 10/325 mg TABLET PO PRN ×2 (14:30→14:31)
[2018-10-09] MEDS ORDERED: Gabapentin 400 MG CAPSULE PO SCH (15:00)
[2018-10-09] MEDS: hydrOXYzine pamoate 25 MG CAPSULE PO PRN (16:41)
[2018-10-09] MEDS: Venlafaxine XR (24 HR) 37.5 MG CAP.ER.24H PO SCH (16:47)
[2018-10-10 06:21] LABS: Basophils % 0.5 %; Eosinophils # 0.2 K/mcL (0.0-0.6); Eosinophils % 3.2 %; Hematocrit 39.4 % (35.3-44.9); Hemoglobin 12.8 g/dL (11.5-15.4); Immature Granulocytes % 0.2 % (0-4); Lymphocytes # 1.6 K/mcL (0.6-4.6); Lymphocytes % 27.8 %; Mean Corpuscular HGB Conc 32.5 g/dL (31.6-35.5); Mean Corpuscular Hemoglobin 28.4 pg (28.0-33.3); Mean Corpuscular Volume 87.6 fL (83.0-100.0); Monocytes # 0.6 K/mcL (0.0-1.3); Neutrophils # 3.2 K/mcL (1.6-8.9); Platelet Count 126 K/mcL (140-400); Red Cell Distribution Width 16.2 % (11.5-14.5); Segmented Neutrophils % 57.3 %
[2018-10-10 06:47] LABS: BUN/Creatinine Ratio 19 (6-26); Blood Urea Nitrogen 16 mg/dL (8-23); Calcium 8.5 mg/dL (8.6-10.3); Carbon Dioxide 21 mEq/L (23-29); Chloride 111 mEq/L (98-107); Glucose 119 mg/dL (70-105); Magnesium 1.8 mg/dL (1.6-2.6); Osmolality,Calculated 290 (280-300); Phosphorous 2.6 mg/dL (2.7-4.5); Potassium 4.4 mEq/L (3.5-5.1); Sodium 139 mEq/L (136-145); eGFR For Non-African Americans > 60 (> 60)
[2018-10-10] MEDS: *HR* Heparin 5,000 UNIT/ML VIAL SQ SCH ×2 (06:48→17:58)
[2018-10-10] MEDS ORDERED: Aminoglycoside Consult 1 EACH MC ONE (07:23)
[2018-10-10] MEDS: Aspirin 81 MG TAB.CHEW PO SCH (10:11)
[2018-10-10] MEDS: Gabapentin 400 MG CAPSULE PO SCH ×3 (10:11→22:08)
[2018-10-10] MEDS: Venlafaxine XR (24 HR) 37.5 MG CAP.ER.24H PO SCH (10:13)
--- NOTE | 2018-10-10 10:15 | Internal Med Progress Note ---
Hospitalist Progress Note - Encounter Date of Encounter: 10/10/18 Time of Encounter: 09:45 - Subjective Interval History: Patient seen and examined at bedside. Resting in bed and reports of feeling better compared to previous day. Pt noted to have more energy and is tolerating PO diet well. Denies any headache, sob, chest pain, fever, or chills at this time. Reports of constipation but denies any abd pain. No overnight events reported. Ten point ROS is negative except as listed above. - Exam Vitals: Temp Pulse Resp BP Pulse Ox 98.6 F 16 16 105/49 95 10/10/18 05:40 10/10/18 05:40 10/10/18 05:40 10/10/18 05:40 10/10/18 05:40 Exam: General: No acute distress, AAO x 3, frail appearing elderly female HEENT: EOMI, NC/AT, no scleral icterus Respiratory: Clear to auscultate bilaterally, no wheezing, no rales Cardiovascular: Regular, Rate, Rhythm, + murmur GI: Soft, Non tender, non distended, normal bowel sounds Ext: No edema, no tenderness, positive pulses Neuro: AAO x 3, no focal deficits Rest of the clinical exam is non contributory Pt encouraged to get out of bed to chair and increase activity as tolerated with assistance - Summary of Assessment and Plan Summary of Assessment and Plan: Ms. Cobos is a 78 year old female with PMH of anxiety, COPD, HLD, HTN, mesenteric mass who presents to the ER for management of abdominal pain. Assessment/Plan: 1. Severe sepsis likely secondary to UTI and bacteremia sepsis resolved Blood culture prelim report: gram positive cocci and rods. coninue Vancomycin IV (pharmacy to dose) continue ceftriaxone qdaily urine cultures reporting no growth thus far repeat blood cultures reporting no growth thus far discontinue IV fluids will closely monitor for signs of volume overload closely monitor BP to maintain MAP> 65 BP improved Hold all antihypertensive medications at this time pain control 2. DVT ppx: Heparin SQ 3. Abd pain likely secondary to UTI vs. underlying mesenteric mass continue supportive care Co-morbidities: COPD, HTN, HLD, anxiety continue home medications Pt encouraged to get out of bed to chair with assistance and increase activity as tolerated with assistance Care plan discussed with Patient/RN Code status: Full code - Time Spent with Patient Total time spent is greater than 50% in coordination of care (as documented) at patient's floor/unit and/or counseling patient: 25 - 35 minutes Internal Medicine: Result - Labs CBC & Chem 7: 10/10/18 05:55 10/10/18 05:55 Labs: Short CBC 10/10/18 Range/Units 05:55 WBC 5.6 D (4.3-11.1) K/mcL Hgb 12.8 (11.5-15.4) g/dL Hct 39.4 (35.3-44.9) % Plt Count 126 L (140-400) K/mcL Neutrophils # 3.2 (1.6-8.9) K/mcL BMP 10/10/18 05:55 Sodium 139 Potassium 4.4 Chloride 111 H Carbon Dioxide 21 L BUN 16 Creatinine 0.84 Glucose 119 H Calcium 8.5 L Consult Discharge Plan - Plan Referrals: NONE,PCP [Primary Care Provider] -
[2018-10-10] MEDS: cefTRIAXone 1,000 MG in Water for inj. (sterile) 20 ML 10 ML IVP SCH (10:16)
[2018-10-10] MEDS: hydrOXYzine pamoate 25 MG CAPSULE PO PRN ×2 (10:16→22:08)
[2018-10-10] MEDS: Budesonide/Formoterol 160/4.5 1 PUFF INH IH SCH ×2 (10:36→20:06)
[2018-10-10] MEDS: Sennosides/Docusate Sodium TABLET PO SCH (22:09)
[2018-10-11] MEDS ORDERED: Benzonatate 100 MG CAPSULE PO PRN (04:31)
[2018-10-11] MEDS: *HR* Heparin 5,000 UNIT/ML VIAL SQ SCH ×2 (05:56→17:45)
[2018-10-11 06:30] LABS: Basophils % 0.7 %; Eosinophils # 0.3 K/mcL (0.0-0.6); Eosinophils % 5.4 %; Hematocrit 43.9 % (35.3-44.9); Immature Granulocytes % 0.3 % (0-4); Lymphocytes # 1.9 K/mcL (0.6-4.6); Lymphocytes % 31.2 %; Mean Corpuscular HGB Conc 32.8 g/dL (31.6-35.5); Mean Corpuscular Hemoglobin 28.9 pg (28.0-33.3); Mean Platelet Volume 11.4 fL (9.4-12.4); Monocytes # 0.8 K/mcL (0.0-1.3); Monocytes % 12.7 %; Neutrophils # 3.1 K/mcL (1.6-8.9); Platelet Count 145 K/mcL (140-400); Red Blood Count 4.99 M/mcL (3.82-4.97); Red Cell Distribution Width 15.9 % (11.5-14.5); Segmented Neutrophils % 49.7 %
[2018-10-11 06:34] LABS: Hemoglobin 14.4 g/dL (11.5-15.4)
[2018-10-11 06:49] LABS: BUN/Creatinine Ratio 25 (6-26); Blood Urea Nitrogen 19 mg/dL (8-23); Calcium 9.7 mg/dL (8.6-10.3); Carbon Dioxide 23 mEq/L (23-29); Chloride 108 mEq/L (98-107); Glucose 78 mg/dL (70-105); Magnesium 1.8 mg/dL (1.6-2.6); Osmolality,Calculated 289 (280-300); Phosphorous 3.3 mg/dL (2.7-4.5); Potassium 4.5 mEq/L (3.5-5.1); Sodium 139 mEq/L (136-145); eGFR For Non-African Americans > 60 (> 60)
[2018-10-11] MEDS: Budesonide/Formoterol 160/4.5 1 PUFF INH IH SCH ×2 (07:44→20:04)
[2018-10-11] MEDS: Sennosides/Docusate Sodium TABLET PO SCH ×2 (09:43→21:31)
[2018-10-11] MEDS: Aspirin 81 MG TAB.CHEW PO SCH (09:43)
[2018-10-11] MEDS: Venlafaxine XR (24 HR) 37.5 MG CAP.ER.24H PO SCH (09:43)
[2018-10-11] MEDS: cefTRIAXone 1,000 MG in Water for inj. (sterile) 20 ML 10 ML IVP SCH (09:45)
[2018-10-11] MEDS: Gabapentin 400 MG CAPSULE PO SCH ×3 (09:46→21:31)
--- NOTE | 2018-10-11 10:52 | Internal Med Progress Note ---
Hospitalist Progress Note - Encounter Date of Encounter: 10/11/18 Time of Encounter: 10:49 - Subjective Interval History: Patient seen and examined earlier today with RN present at bedside. Pt sitting in bed and reports of feeling better. She states she requires a cane or walker for ambulation. Feels weak and is worried about her ambulatory status. RN requested to obtain physical therapy evaluation and get patient out of bed to chair with assistance. No fever or chills reported. Pt reports of having a bowel movement. No overnight events reported Ten point ROS is negative except as listed above I spoke with microbiology lab, pt's blood culture serologies will not be available until tomorrow, will closely follow. - Exam Vitals: Temp Pulse Resp BP Pulse Ox 97.6 F 62 16 121/65 97 10/11/18 07:37 10/11/18 07:37 10/11/18 07:44 10/11/18 07:37 10/11/18 07:44 Exam: General: No acute distress, AAO x 3, frail appearing elderly female HEENT: EOMI, NC/AT, no scleral icterus Respiratory: Clear to auscultate bilaterally, no wheezing, no rales Cardiovascular: Regular, Rate, Rhythm, + murmur GI: Soft, Non tender, non distended, normal bowel sounds Ext: No edema, no tenderness, positive pulses Neuro: AAO x 3, no focal deficits Rest of the clinical exam is non contributory Pt encouraged to get out of bed to chair and increase activity as tolerated with assistance - Summary of Assessment and Plan Summary of Assessment and Plan: Ms. Cobos is a 78 year old female with PMH of anxiety, COPD, HLD, HTN, mesenteric mass who presents to the ER for management of abdominal pain. Assessment/Plan: 1. Severe sepsis likely secondary to UTI and bacteremia sepsis resolved Blood culture prelim report: gram positive cocci and rods. discontinue Vancomycin continue ceftriaxone qdaily urine cultures reporting no growth thus far repeat blood cultures reporting no growth thus far will closely monitor for signs of volume overload closely monitor BP to maintain MAP> 65 BP improved BP within acceptable range despite holding antihypertensive medications pain control 2. DVT ppx: Heparin SQ 3. Abd pain likely secondary to UTI vs. underlying mesenteric mass continue supportive care Co-morbidities: COPD, HTN, HLD, anxiety continue home medications Pt encouraged to get out of bed to chair with assistance and increase activity as tolerated with assistance PT eval requested Care plan discussed with Patient/RN Code status: Full code - Time Spent with Patient Total time spent is greater than 50% in coordination of care (as documented) at patient's floor/unit and/or counseling patient: 25 - 35 minutes Internal Medicine: Result - Labs CBC & Chem 7: 10/11/18 05:36 10/11/18 05:36 Labs: Short CBC 10/11/18 Range/Units 05:36 WBC 6.2 (4.3-11.1) K/mcL Hgb 14.4 D (11.5-15.4) g/dL Hct 43.9 (35.3-44.9) % Plt Count 145 (140-400) K/mcL Neutrophils # 3.1 (1.6-8.9) K/mcL BMP 10/11/18 05:36 Sodium 139 Potassium 4.5 Chloride 108 H Carbon Dioxide 23 BUN 19 Creatinine 0.76 Glucose 78 Calcium 9.7 Consult Discharge Plan - Plan Referrals: NONE,PCP [Primary Care Provider] -
[2018-10-11] MEDS: hydrOXYzine pamoate 25 MG CAPSULE PO PRN ×2 (15:17→21:31)
[2018-10-12 01:44] LABS: Basophils % 0.5 %; Eosinophils # 0.3 K/mcL (0.0-0.6); Eosinophils % 5.5 %; Hematocrit 41.1 % (35.3-44.9); Hemoglobin 13.4 g/dL (11.5-15.4); Immature Granulocytes % 0.5 % (0-4); Lymphocytes # 1.9 K/mcL (0.6-4.6); Lymphocytes % 29.7 %; Mean Corpuscular HGB Conc 32.6 g/dL (31.6-35.5); Mean Corpuscular Hemoglobin 28.5 pg (28.0-33.3); Mean Corpuscular Volume 87.3 fL (83.0-100.0); Mean Platelet Volume 10.4 fL (9.4-12.4); Monocytes # 0.6 K/mcL (0.0-1.3); Neutrophils # 3.4 K/mcL (1.6-8.9); Platelet Count 161 K/mcL (140-400); Red Blood Count 4.71 M/mcL (3.82-4.97); Red Cell Distribution Width 15.9 % (11.5-14.5); Segmented Neutrophils % 53.8 %
[2018-10-12 02:04] LABS: BUN/Creatinine Ratio 29 (6-26); Blood Urea Nitrogen 23 mg/dL (8-23); Calcium 9.1 mg/dL (8.6-10.3); Carbon Dioxide 26 mEq/L (23-29); Chloride 108 mEq/L (98-107); Glucose 105 mg/dL (70-105); Magnesium 1.8 mg/dL (1.6-2.6); Osmolality,Calculated 290 (280-300); Phosphorous 3.6 mg/dL (2.7-4.5); Potassium 4.5 mEq/L (3.5-5.1); Sodium 138 mEq/L (136-145); eGFR For Non-African Americans > 60 (> 60)
[2018-10-12] MEDS: *HR* Heparin 5,000 UNIT/ML VIAL SQ SCH (06:44)
[2018-10-12 07:08] VITALS: BP 115/60
[2018-10-12] MEDS: Budesonide/Formoterol 160/4.5 1 PUFF INH IH SCH (07:29)
[2018-10-12] MEDS: Aspirin 81 MG TAB.CHEW PO SCH (08:10)
[2018-10-12] MEDS: Sennosides/Docusate Sodium TABLET PO SCH (08:10)
[2018-10-12] MEDS: Gabapentin 400 MG CAPSULE PO SCH ×2 (08:10→14:36)
[2018-10-12] MEDS: cefTRIAXone 1,000 MG in Water for inj. (sterile) 20 ML 10 ML IVP SCH (08:11)
[2018-10-12] MEDS: Venlafaxine XR (24 HR) 37.5 MG CAP.ER.24H PO SCH (08:12)
[2018-10-12] MEDS: hydrOXYzine pamoate 25 MG CAPSULE PO PRN ×2 (08:24→14:36)
--- NOTE | 2018-10-12 10:37 | Physician Discharge Referral ---
Home Health/Hosp Referral Info Transfer to: Home Health Provider in Charge Post Discharge: PCP - Diagnosis (1) Severe sepsis Priority: Primary Status: Resolved (2) Bacteremia Priority: Primary Status: Resolved (3) Urinary tract infection Priority: Primary Status: Resolved - Respiratory Orders Smoking Cessation: Smoking cessation has been advised. For more information, call the [place] Tobacco Quit Line at 9-116-FHZY-NOW. - Services Needed Following services are medically necessary services: Nursing, Home Health Aide, Physical Therapy, Occupational Therapy - Transfer Medications Prescriptions: Clindamycin [Cleocin] 600 mg PO TID #17 capsule Home Medications: Aspirin 81 mg PO DAILY 02/08/15 [History] Budesonide/Formoterol 160/4.5 [Symbicort 160/4.5] 2 puff IH BIDR 02/11/15 [History] Albuterol Sulfate [Ventolin Hfa] 2 puff IH Q4H PRN 08/17/18 [History] Atorvastatin [Lipitor] 10 mg PO HS 08/17/18 [History] Nitroglycerin [Nitrostat] 0.4 mg SL AD PRN MDD Q15 MINUTES MAX 3 DOSES/911 08/17/18 [History] Gabapentin [Neurontin] 400 mg PO TID 10/09/18 [History] HYDROcodone/Acet 10/325 mg [[place] 10-325 mg] 1 tab PO TID PRN 10/09/18 [History] Venlafaxine XR (24 HR) [Effexor Xr] 112.5 mg PO DAILY 10/09/18 [History] hydrOXYzine pamoate [HydrOXYzine Pamoate] 25 mg PO TID PRN 10/09/18 [History] Clindamycin [Cleocin] 600 mg PO TID #17 capsule 10/12/18 [Rx] Allergies/Adverse Reactions: Allergy/AdvReac Type Severity Reaction Status Date / Time codeine Allergy UNKNOWN Verified 10/09/18 14:23 REACTION Penicillins Allergy UNKNOWN Verified 10/09/18 14:23 REACTION Certification: Further, I certify that my clinical findings support that this patient is homebound (i.e. absences from home require considerable and taxing effort and are for medical reasons or sabianist services or infrequently or short duration when for other reasons) because: Homebound Reason: Patient requires assistance of a person or device to safely leave home Attestation: My signature below is to certify that this patient is under my care and that I, or nurse practitioner, or a physician's emergency medicine physician assistant working with me, has a [id number] encounter with this patient.
--- NOTE | 2018-10-12 10:46 | Discharge Summary ---
- NOTES TO OUTPATIENT PROVIDER Notes to Outpatient Provider: Patient was admitted for severe sepsis likely secondary to UTI, but was found to have positive blood cultures with gram positive rods and gram positive cocci. Repeat cultures and urine cultures remained negative. Pt clincially improved and is back to her baseline. Her blood culture will take 7-10 days to finalize as per microbiology lab, therefore, please follow up patient's blood culture report. Patient is being discharged on oral antibiotics. Orders not resulted at time of discharge: Pending orders 10/08/18 15:02 Culture,Blood [BC] Stat 10/09/18 17:45 Culture,Blood [BC] Routine Date of Encounter: 10/12/18 Time of Encounter: 10:37 - Discharge Diagnosis (1) Severe sepsis Priority: Primary Status: Resolved (2) Bacteremia Priority: Primary Status: Resolved (3) Urinary tract infection Priority: Primary Status: Resolved Qualifiers: Urinary tract infection type: site unspecified Hematuria presence: without hematuria Qualified Code(s): N39.0 - Urinary tract infection, site not specified Hospital course: Ms. Cobos is a 78 year old female with PMH of anxiety, COPD, HTN, mesenteric mass who was admitted for severe sepsis likely secondary to UTI. Further workup reported positive blood cultures with gram positive rods and cocci. Patient was started on broad-spectrum IV antibiotics and antibiotics were de-escalated per clinical response. Patient's repeat cultures have remained negative since 10/09/2018. She has remained afebrile with resolution of sepsis. Patient participated with physical therapy and continuation of home health services was recommended. Patient was seen and examined earlier this morning, and reported of no discomfort, denies any abdominal pain, nausea, vomiting, fever, or chills at this time. Patient is medically stable for discharge to home with outpatient follow-up with primary care physician. As per microbiology lab her blood cultures from 10/08/2018 will take 7-10 days to finalize. Given patient's clinical status, and response to antibiotic therapy, we will switch her to oral antibiotics and discharge to home with outpatient follow-up with PCP. Patient acknowledges and demonstrates understanding of her hospital course and agrees with the discharge care and plan. Discharge discussed with: patient, nurse, other (pharmacist) - Time Spent with Patient Total time spent providing and/or coordinating discharge services: 35 minutes Time spent: Greater than 30 minutes - Discharge Medications Prescriptions: New Clindamycin [Cleocin] 600 mg PO TID #17 capsule Continue Aspirin 81 mg PO DAILY Budesonide/Formoterol 160/4.5 [Symbicort 160/4.5] 2 puff IH BIDR Albuterol Sulfate [Ventolin Hfa] 2 puff IH Q4H PRN PRN Reason: Shortness Of Breath Atorvastatin [Lipitor] 10 mg PO HS Nitroglycerin [Nitrostat] 0.4 mg SL AD PRN MDD Q15 MINUTES MAX 3 DOSES/911 PRN Reason: Chest Pain hydrOXYzine pamoate [HydrOXYzine Pamoate] 25 mg PO TID PRN PRN Reason: Anxiety Venlafaxine XR (24 HR) [Effexor Xr] 112.5 mg PO DAILY Gabapentin [Neurontin] 400 mg PO TID HYDROcodone/Acet 10/325 mg [[place] 10-325 mg] 1 tab PO TID PRN PRN Reason: Mild To Moderate Pain Home Medications: Aspirin 81 mg PO DAILY 02/08/15 [History] Budesonide/Formoterol 160/4.5 [Symbicort 160/4.5] 2 puff IH BIDR 02/11/15 [History] Albuterol Sulfate [Ventolin Hfa] 2 puff IH Q4H PRN 08/17/18 [History] Atorvastatin [Lipitor] 10 mg PO HS 08/17/18 [History] Nitroglycerin [Nitrostat] 0.4 mg SL AD PRN MDD Q15 MINUTES MAX 3 DOSES/911 08/17/18 [History] Gabapentin [Neurontin] 400 mg PO TID 10/09/18 [History] HYDROcodone/Acet 10/325 mg [[place] 10-325 mg] 1 tab PO TID PRN 10/09/18 [History] Venlafaxine XR (24 HR) [Effexor Xr] 112.5 mg PO DAILY 10/09/18 [History] hydrOXYzine pamoate [HydrOXYzine Pamoate] 25 mg PO TID PRN 10/09/18 [History] Clindamycin [Cleocin] 600 mg PO TID #17 capsule 10/12/18 [Rx] Allergies/Adverse Reactions: Allergy/AdvReac Type Severity Reaction Status Date / Time codeine Allergy UNKNOWN Verified 10/09/18 14:23 REACTION Penicillins Allergy UNKNOWN Verified 10/09/18 14:23 REACTION Date of admission: 10/08/18 17:54 Primary care physician: PCP NONE Consults: 10/11/18 10:53 Consult to Physical Therapy [CONS] Routine Comment: Evaluate, develop and implement POC Reason for Consult: evaluation for discharge Does patient have active BEDREST order?: No Is patient medically & hemodynamically stable?: Yes Patient assessed for mobility or mobilized this visit?: Yes Discharging clinician: Marnie Cadet Anticipated date of discharge: 10/12/18 - Constitutional Vitals: Temp Pulse Resp BP Pulse Ox 98.3 F 63 16 115/60 95 10/12/18 07:06 10/12/18 07:06 10/12/18 07:29 10/12/18 07:06 10/12/18 07:29 Exam: General: No acute distress, AAO x 3, frail appearing elderly female HEENT: EOMI, NC/AT, no scleral icterus Respiratory: Clear to auscultate bilaterally, no wheezing, no rales Cardiovascular: Regular, Rate, Rhythm, + murmur GI: Soft, Non tender, non distended, normal bowel sounds Ext: No edema, no tenderness, positive pulses Neuro: AAO x 3, no focal deficits Rest of the clinical exam is non contributory - Patient Status Disposition: Home Health Service Condition: Good Functional capacity at discharge: uses cane/walker Overall status at discharge: patient is back to baseline - Discharge Instructions Follow Up With: NONE,PCP [Primary Care Provider] - Additional Instructions: Please follow up with your primary care physician within three to five days after your discharge from the hospital. Please continue oral antibiotics as prescribed. Please take the antibiotic with meals. If you have severe diarrhea and abdominal pain with taking these antibiotics, please call your doctor immediately. Please resume all your other home medications as prescribed by your primary care physician - Diet and Activity Activity: as per physical therapy Diet: low fat, low cholesterol
== END 2018-10-12 15:17 | disposition home health service (06) | DRG 872 ==
LOC: 3ANU 14:39 → EMEROOARM 14:39 → OBSVTOIN 17:54 → 2NENU 18:37
PROVIDERS: ADMIT Internal Medicine; ATTEND Internal Medicine

== ENCOUNTER 2019-05-03 02:32 | Observation (INO) ==
[2019-05-03] MEDS ORDERED: cefTRIAXone 1,000 MG in Water for inj. (sterile) 10 ML IVP ONE (02:53)
[2019-05-03] MEDS: 0.9 % Sodium Chloride 1,000 ML IVC SCH ×3 (03:33→20:54)
[2019-05-03] MEDS ORDERED: hydrOXYzine pamoate 25 MG CAPSULE PO PRN (07:25)
[2019-05-03] MEDS ORDERED: Nitroglycerin 0.4 MG TAB.SUBL SL PRN (07:25)
[2019-05-03] MEDS ORDERED: Ondansetron 4 MG/2 ML VIAL IVP PRN (07:26)
[2019-05-03] MEDS ORDERED: MOM Conc 10 ML UD.LIQ PO PRN (07:26)
[2019-05-03] MEDS ORDERED: traMADol 50 MG TABLET PO PRN (07:26)
[2019-05-03] MEDS ORDERED: Naloxone 0.4 MG/ML INJ IVP PRN (07:26)
[2019-05-03] MEDS ORDERED: *HR* Promethazine 25 MG/ML VIAL IVP PRN (07:26)
[2019-05-03] MEDS ORDERED: Mag Hydrox/Al Hydrox/Simeth 30 ML UDC PO PRN (07:26)
[2019-05-03] MEDS ORDERED: Acetaminophen 325 MG TABLET PO PRN (07:26)
[2019-05-03] MEDS ORDERED: *HR* LORazepam 1 MG TABLET PO PRN (07:31)
[2019-05-03] MEDS: Budesonide/Formoterol 160/4.5 1 PUFF INH IH SCH ×2 (10:23→21:06)
[2019-05-03] MEDS: Venlafaxine XR (24 HR) 37.5 MG CAP.ER.24H PO SCH (11:36)
[2019-05-03] MEDS: Gabapentin 400 MG CAPSULE PO SCH ×3 (11:36→20:54)
[2019-05-03] MEDS: Aspirin 81 MG TAB.CHEW PO SCH (11:36)
[2019-05-03] MEDS: cefTRIAXone 2,000 MG in 0.9 % Sodium Chloride Mini Bag 100 ML IVPB SCH (11:37)
[2019-05-03] MEDS: *HR* Heparin 5,000 UNIT/ML VIAL SQ SCH (17:53)
[2019-05-04 02:00] LABS: Basophils # 0.1 K/mcL (0.0-0.2); Basophils % 0.7 %; Eosinophils # 0.3 K/mcL (0.0-0.6); Eosinophils % 3.1 %; Hematocrit 46.3 % (35.3-44.9); Hemoglobin 14.7 g/dL (11.5-15.4); Immature Granulocytes % 0.3 % (0-4); Lymphocytes # 2.6 K/mcL (0.6-4.6); Lymphocytes % 30.1 %; Mean Corpuscular HGB Conc 31.7 g/dL (31.6-35.5); Mean Corpuscular Hemoglobin 30.4 pg (28.0-33.3); Mean Corpuscular Volume 95.7 fL (83.0-100.0); Monocytes # 0.9 K/mcL (0.0-1.3); Neutrophils # 4.8 K/mcL (1.6-8.9); Platelet Count 162 K/mcL (140-400); Red Blood Count 4.84 M/mcL (3.82-4.97); Red Cell Distribution Width 12.6 % (11.5-14.5); Segmented Neutrophils % 55.8 %; White Blood Count 8.6 K/mcL (4.3-11.1)
[2019-05-04 02:25] LABS: BUN/Creatinine Ratio 32 (6-26); Blood Urea Nitrogen 24 mg/dL (8-23); Calcium 8.8 mg/dL (8.6-10.3); Carbon Dioxide 23 mEq/L (23-29); Chloride 112 mEq/L (98-107); Glucose 100 mg/dL (70-105); Osmolality,Calculated 296 (280-300); Potassium 4.4 mEq/L (3.5-5.1); Sodium 141 mEq/L (136-145); eGFR For African Americans > 60 (> 60); eGFR For Non-African Americans > 60 (> 60)
[2019-05-04] MEDS: 0.9 % Sodium Chloride 1,000 ML IVC SCH (03:33)
[2019-05-04] MEDS: *HR* Heparin 5,000 UNIT/ML VIAL SQ SCH (06:11)
[2019-05-04] MEDS: Budesonide/Formoterol 160/4.5 1 PUFF INH IH SCH (07:39)
[2019-05-04] MEDS: Aspirin 81 MG TAB.CHEW PO SCH (09:18)
[2019-05-04] MEDS: Gabapentin 400 MG CAPSULE PO SCH (09:18)
[2019-05-04] MEDS: Venlafaxine XR (24 HR) 37.5 MG CAP.ER.24H PO SCH (09:18)
[2019-05-04] MEDS: cefTRIAXone 2,000 MG in 0.9 % Sodium Chloride Mini Bag 100 ML IVPB SCH (09:20)
[2019-05-04 11:38] VITALS: BP 122/72
== END 2019-05-04 14:43 | disposition home health service (06) ==
LOC: EMEROOARM 02:32 → 3BNU 02:32
PROVIDERS: ADMIT Family Medicine; ATTEND Family Medicine

== ENCOUNTER 2019-08-04 18:04 | Observation (INO) ==
[2019-08-04] MEDS ORDERED: Aspirin 81 MG TAB.CHEW PO ONE (18:19)
[2019-08-04] MEDS ORDERED: Isovue-370 500 ML BOTTLE IVP ONE (18:20)
[2019-08-04] MEDS ORDERED: *HR* LORazepam 2 MG/ML VIAL IVP ONE (18:22)
[2019-08-04 19:05] LABS: Hematocrit 46.8 % (35.3-44.9); Hemoglobin 15.7 g/dL (11.5-15.4); Mean Corpuscular HGB Conc 33.5 g/dL (31.6-35.5); Mean Corpuscular Hemoglobin 30.3 pg (28.0-33.3); Mean Corpuscular Volume 90.2 fL (83.0-100.0); Mean Platelet Volume 10.3 fL (9.4-12.4); Platelet Count 207 K/mcL (140-400); Red Blood Count 5.19 M/mcL (3.82-4.97); Red Cell Distribution Width 13.2 % (11.5-14.5); White Blood Count 7.6 K/mcL (4.3-11.1)
[2019-08-04 19:18] LABS: BUN/Creatinine Ratio 26 (6-26); Blood Urea Nitrogen 21 mg/dL (8-23); Calcium 9.1 mg/dL (8.6-10.3); Carbon Dioxide 28 mEq/L (23-29); Chloride 103 mEq/L (98-107); Glucose 119 mg/dL (70-105); Osmolality,Calculated 294 (280-300); Potassium 3.8 mEq/L (3.5-5.1); Sodium 140 mEq/L (136-145); Troponin I < 0.03 ng/mL (< 0.04); eGFR For African Americans > 60 (> 60); eGFR For Non-African Americans > 60 (> 60)
[2019-08-04] MEDS ORDERED: Naloxone 0.4 MG/ML INJ IVP PRN (21:35)
[2019-08-04 22:09] LABS: Bilirubin,Urine Negative (Negative); Blood,Urine Negative (Negative); Clarity,Urine Clear (Clear); Color,Urine Yellow (Yellow); Glucose,Urine (UA) Normal (Normal); Ketones,Urine Negative (Negative); Leukocyte Esterase,Urine Negative (Negative); Nitrite,Urine Negative (Negative); PH,Urine 6.5 pH Units (5.0-8.0); Protein,Urine Negative (Neg-Trace); Specific Gravity,Urine > 1.030 (1.010-1.025); Urobilinogen,Urine Normal (Normal)
[2019-08-04 22:16] LABS: Amphetamine Screen,Urine Negative ng/mL (Cutoff=1000); Barbiturate Screen,Urine Negative ng/mL (Cutoff=200); Benzodiazepines Screen,Urine Negative ng/mL (Cutoff=200); Cannabinoid Screen,Urine Negative ng/mL (Cutoff = 50); Cocaine Screen,Urine Negative ng/mL (Cutoff= 300); Opiate Screen,Urine Negative ng/mL (Cutoff=300); Phencyclidine Screen,Urine Negative ng/mL (Cutoff=25)
[2019-08-05] MEDS ORDERED: Nitroglycerin 0.4 MG TAB.SUBL SL PRN (03:50)
[2019-08-05] MEDS: *HR* Heparin 5,000 UNIT/ML VIAL SQ SCH ×2 (05:05→17:55)
[2019-08-05 06:27] LABS: INR 0.9; Prothrombin Time 10.7 Seconds (9.4-12.1)
[2019-08-05 06:33] LABS: Troponin I < 0.03 ng/mL (< 0.04)
[2019-08-05 06:35] LABS: Alanine Aminotransferase 6 Units/L (7-52); Albumin 3.5 g/dL (3.5-5.7); Albumin/Globulin Ratio 1.4 (1.1-2.2); Alkaline Phosphatase 99 Units/L (34-104); Aspartate Amino Transferase 13 Units/L (13-39); BUN/Creatinine Ratio 22 (6-26); Bilirubin,Total 0.9 mg/dL (0.3-1.0); Blood Urea Nitrogen 21 mg/dL (8-23); Calcium 8.8 mg/dL (8.6-10.3); Carbon Dioxide 26 mEq/L (23-29); Chloride 105 mEq/L (98-107); Chol/HDL Ratio 2.7 (0-4.9); Cholesterol 117 mg/dL (< 200); Globulin 2.5 g/dL (2.4-3.5); Glucose 91 mg/dL (70-105); HDL Cholesterol 43 mg/dL (40-59); LDL Cholesterol,Calculated 53 mg/dL (0-99); Osmolality,Calculated 297 (280-300); Potassium 4.2 mEq/L (3.5-5.1); Sodium 142 mEq/L (136-145); Triglycerides 106 mg/dL (< 150); eGFR For African Americans > 60 (> 60); eGFR For Non-African Americans 56 (> 60)
[2019-08-05] MEDS ORDERED: Perflutren Lipid Microsphere 1.3 ML in 0.9 % Sodium Chloride 8.7 ML IVP ONE (07:16)
[2019-08-05 08:03] LABS: Estimated Average Glucose 100 mg/dl
[2019-08-05] MEDS: Aspirin Enteric Coated 81 MG Tablet PO SCH ×2 (08:16→08:21)
[2019-08-05] MEDS: Gabapentin 400 MG CAPSULE PO SCH ×3 (08:16→21:26)
[2019-08-05] MEDS: Venlafaxine XR (24 HR) 37.5 MG CAP.ER.24H PO SCH (08:17)
[2019-08-05] MEDS: Budesonide/Formoterol 160/4.5 1 PUFF INH IH SCH ×2 (11:02→20:15)
[2019-08-05] MEDS: hydrOXYzine pamoate 25 MG CAPSULE PO PRN ×2 (16:17→22:17)
[2019-08-05] MEDS ORDERED: Acetaminophen 325 MG TABLET PO ONE (21:42)
[2019-08-06 04:28] LABS: Hematocrit 43.2 % (35.3-44.9); Mean Corpuscular HGB Conc 31.9 g/dL (31.6-35.5); Mean Corpuscular Hemoglobin 30.1 pg (28.0-33.3); Mean Corpuscular Volume 94.1 fL (83.0-100.0); Mean Platelet Volume 10.9 fL (9.4-12.4); Platelet Count 172 K/mcL (140-400); Red Blood Count 4.59 M/mcL (3.82-4.97); Red Cell Distribution Width 13.3 % (11.5-14.5); White Blood Count 7.4 K/mcL (4.3-11.1)
[2019-08-06 04:31] LABS: Hemoglobin 13.8 g/dL (11.5-15.4)
[2019-08-06 04:52] LABS: BUN/Creatinine Ratio 34 (6-26); Blood Urea Nitrogen 28 mg/dL (8-23); Calcium 8.6 mg/dL (8.6-10.3); Carbon Dioxide 24 mEq/L (23-29); Chloride 107 mEq/L (98-107); Glucose 104 mg/dL (70-105); Osmolality,Calculated 290 (280-300); Potassium 4.2 mEq/L (3.5-5.1); Sodium 137 mEq/L (136-145); eGFR For African Americans > 60 (> 60); eGFR For Non-African Americans > 60 (> 60)
[2019-08-06] MEDS: *HR* Heparin 5,000 UNIT/ML VIAL SQ SCH ×2 (05:36→15:04)
[2019-08-06] MEDS: Budesonide/Formoterol 160/4.5 1 PUFF INH IH SCH ×2 (08:01→20:38)
[2019-08-06] MEDS: Venlafaxine XR (24 HR) 37.5 MG CAP.ER.24H PO SCH (09:01)
[2019-08-06] MEDS: hydrOXYzine pamoate 25 MG CAPSULE PO PRN ×3 (09:01→20:09)
[2019-08-06] MEDS: Gabapentin 400 MG CAPSULE PO SCH ×3 (09:01→20:08)
[2019-08-06] MEDS: Aspirin Enteric Coated 81 MG Tablet PO SCH ×2 (09:01→09:02)
[2019-08-07] MEDS: *HR* Heparin 5,000 UNIT/ML VIAL SQ SCH (05:08)
[2019-08-07 05:18] LABS: Hematocrit 45.5 % (35.3-44.9); Hemoglobin 14.8 g/dL (11.5-15.4); Mean Corpuscular HGB Conc 32.5 g/dL (31.6-35.5); Mean Corpuscular Hemoglobin 29.8 pg (28.0-33.3); Mean Corpuscular Volume 91.5 fL (83.0-100.0); Platelet Count 150 K/mcL (140-400); Red Blood Count 4.97 M/mcL (3.82-4.97); Red Cell Distribution Width 13.5 % (11.5-14.5); White Blood Count 7.2 K/mcL (4.3-11.1)
[2019-08-07] MEDS: Budesonide/Formoterol 160/4.5 1 PUFF INH IH SCH (07:30)
[2019-08-07] MEDS: Aspirin Enteric Coated 81 MG Tablet PO SCH ×2 (08:33→08:35)
[2019-08-07] MEDS: Venlafaxine XR (24 HR) 37.5 MG CAP.ER.24H PO SCH (08:35)
[2019-08-07] MEDS: Gabapentin 400 MG CAPSULE PO SCH (08:35)
[2019-08-07] MEDS: hydrOXYzine pamoate 25 MG CAPSULE PO PRN (08:36)
[2019-08-07 11:11] VITALS: BP 108/60
== END 2019-08-07 12:47 | disposition home health service (06) ==
LOC: EDBD → EMEROOARM 18:04 → 3BNU 18:04 → SUATTDRO 21:09 → 3BNU 22:09
PROVIDERS: ADMIT Internal Medicine; ATTEND Internal Medicine

== ENCOUNTER 2020-10-29 03:24 | Observation (INO) ==
[2020-10-29 06:49] LABS: Basophils # 0.1 K/mcL (0.0-0.2); Eosinophils # 0.3 K/mcL (0.0-0.6); Eosinophils % 3.4 %; Hematocrit 49.2 % (35.3-44.9); Hemoglobin 15.8 g/dL (11.5-15.4); Immature Granulocytes % 0.3 % (0-4); Lymphocytes # 2.1 K/mcL (0.6-4.6); Lymphocytes % 22.6 %; Mean Corpuscular HGB Conc 32.1 g/dL (31.6-35.5); Mean Corpuscular Hemoglobin 29.9 pg (28.0-33.3); Mean Platelet Volume 10.4 fL (9.4-12.4); Monocytes # 0.8 K/mcL (0.0-1.3); Monocytes % 8.9 %; Platelet Count 235 K/mcL (140-400); Red Blood Count 5.29 M/mcL (3.82-4.97); Red Cell Distribution Width 13.2 % (11.5-14.5); Segmented Neutrophils % 63.8 %; White Blood Count 9.4 K/mcL (4.3-11.1)
[2020-10-29 07:06] LABS: BUN/Creatinine Ratio 26 (6-26); Blood Urea Nitrogen 21 mg/dL (8-23); Calcium 9.2 mg/dL (8.6-10.3); Carbon Dioxide 29 mEq/L (23-29); Chloride 106 mEq/L (98-107); Glucose 110 mg/dL (70-105); Osmolality,Calculated 296 (280-300); Potassium 4.1 mEq/L (3.5-5.1); Sodium 141 mEq/L (136-145); Troponin I < 0.03 ng/mL (< 0.04); eGFR For African Americans > 60 (> 60); eGFR For Non-African Americans > 60 (> 60)
[2020-10-29] MEDS ORDERED: Aspirin 325 MG TABLET PO ONE (08:07)
[2020-10-29] MEDS ORDERED: Naloxone 0.4 MG/ML INJ IVP PRN (08:47)
[2020-10-29] MEDS ORDERED: Ondansetron 4 MG/2 ML VIAL IVP PRN (08:47)
[2020-10-29] MEDS ORDERED: Melatonin 3 MG TABLET PO PRN (08:47)
[2020-10-29] MEDS ORDERED: Acetaminophen 325 MG TABLET PO PRN (08:47)
[2020-10-29] MEDS ORDERED: Perflutren Lipid Microsphere 1.3 ML in 0.9 % Sodium Chloride 8.7 ML IVP PRN (08:51)
[2020-10-29] MEDS ORDERED: Nitroglycerin 0.4 MG TAB.SUBL SL PRN ×2 (08:52→18:27)
[2020-10-29 09:41] LABS: INR 0.9; Prothrombin Time 10.9 Seconds (9.4-12.1)
[2020-10-29] MEDS ORDERED: Ipratropium/Albuterol Neb 3 ML IH PRN (10:04)
[2020-10-29 10:23] LABS: Estimated Average Glucose 100 mg/dl; Hemoglobin A1C 5.1 %
[2020-10-29] MEDS ORDERED: Regadenoson 0.4 MG/5 ML SYRINGE IVP ONE (11:37)
[2020-10-29] MEDS: Ipratropium/Albuterol Neb 3 ML IH SCH ×3 (11:39→22:12)
[2020-10-29] MEDS: Budesonide/Formoterol 160/4.5 1 PUFF INH IH SCH ×2 (11:39→22:12)
[2020-10-29] MEDS: *HR* LORazepam 0.5 MG TABLET PO PRN ×2 (11:50→20:01)
[2020-10-29] MEDS: predniSONE 20 MG TABLET PO SCH (11:50)
[2020-10-29] MEDS: Azithromycin 250 MG TABLET PO SCH (11:50)
[2020-10-29 12:28] LABS: Chol/HDL Ratio 2.8 (0-4.9); Cholesterol 135 mg/dL (< 200); HDL Cholesterol 48 mg/dL (40-59); LDL Cholesterol,Calculated 64 mg/dL (< 100); Triglycerides 113 mg/dL (< 150)
[2020-10-29] MEDS: Gabapentin 400 MG CAPSULE PO SCH (19:56)
[2020-10-30] MEDS: Ipratropium/Albuterol Neb 3 ML IH SCH ×2 (04:03→10:44)
[2020-10-30] MEDS ORDERED: *HR* Enoxaparin 40 MG/0.4 ML SYRINGE SQ SCH (06:00)
[2020-10-30 07:27] LABS: Hematocrit 42.9 % (35.3-44.9); Hemoglobin 14.3 g/dL (11.5-15.4); Mean Corpuscular HGB Conc 33.3 g/dL (31.6-35.5); Mean Corpuscular Hemoglobin 30.4 pg (28.0-33.3); Mean Corpuscular Volume 91.3 fL (83.0-100.0); Mean Platelet Volume 10.6 fL (9.4-12.4); Platelet Count 210 K/mcL (140-400); Red Cell Distribution Width 13.1 % (11.5-14.5); White Blood Count 9.7 K/mcL (4.3-11.1)
[2020-10-30 07:33] VITALS: BP 94/52
[2020-10-30 07:53] LABS: BUN/Creatinine Ratio 30 (6-26); Blood Urea Nitrogen 22 mg/dL (8-23); Calcium 8.8 mg/dL (8.6-10.3); Carbon Dioxide 24 mEq/L (23-29); Chloride 108 mEq/L (98-107); Glucose 115 mg/dL (70-105); Osmolality,Calculated 292 (280-300); Phosphorous 2.9 mg/dL (2.7-4.5); Sodium 139 mEq/L (136-145); eGFR For African Americans > 60 (> 60); eGFR For Non-African Americans > 60 (> 60)
[2020-10-30] MEDS ORDERED: Venlafaxine XR (24 HR) 75 MG CAP.ER.24H PO SCH (09:00)
[2020-10-30] MEDS ORDERED: Aspirin Enteric Coated 81 MG Tablet PO SCH (09:00)
[2020-10-30] MEDS: Azithromycin 250 MG TABLET PO SCH (09:08)
[2020-10-30] MEDS: Gabapentin 400 MG CAPSULE PO SCH (09:08)
[2020-10-30] MEDS: predniSONE 20 MG TABLET PO SCH (09:08)
[2020-10-30] MEDS: *HR* LORazepam 0.5 MG TABLET PO PRN (09:16)
[2020-10-30] MEDS: Budesonide/Formoterol 160/4.5 1 PUFF INH IH SCH (10:44)
== END 2020-10-30 11:25 | disposition home or self-care (01) ==
LOC: 3BNU 03:24 → EMEROOARM 03:24 → SUATTDRO 08:45 → 3BNU 09:24
PROVIDERS: ADMIT Internal Medicine; ATTEND Registered Nurse

== ENCOUNTER 2021-01-09 12:45 | Inpatient (IN) ==
[2021-01-09 14:03] LABS: Basophils # 0.1 K/mcL (0.0-0.2); Basophils % 0.5 %; Eosinophils # 0.1 K/mcL (0.0-0.6); Eosinophils % 0.8 %; Hematocrit 54.9 % (35.3-44.9); Hemoglobin 17.8 g/dL (11.5-15.4); Immature Granulocytes % 0.3 % (0-4); Lymphocytes # 1.3 K/mcL (0.6-4.6); Lymphocytes % 10.7 %; Mean Corpuscular HGB Conc 32.4 g/dL (31.6-35.5); Mean Corpuscular Volume 92.6 fL (83.0-100.0); Mean Platelet Volume 10.2 fL (9.4-12.4); Neutrophils # 9.7 K/mcL (1.6-8.9); Platelet Count 286 K/mcL (140-400); Red Blood Count 5.93 M/mcL (3.82-4.97); Segmented Neutrophils % 79.7 %; White Blood Count 12.2 K/mcL (4.3-11.1)
[2021-01-09] MEDS ORDERED: Isovue-370 500 ML BOTTLE IVP ONE (14:07)
[2021-01-09] MEDS ORDERED: Ondansetron ODT 4 MG TAB.RAPDIS SL ONE (14:08)
[2021-01-09] MEDS ORDERED: *HR* HYDROmorphone (PF) 1 MG/ML SYRINGE IVP ONE (14:08)
[2021-01-09] MEDS ORDERED: 0.9 % Sodium Chloride 500 ML IV ONE (14:11)
[2021-01-09 14:22] LABS: BUN/Creatinine Ratio 19 (6-26); Blood Urea Nitrogen 17 mg/dL (8-23); Calcium 9.7 mg/dL (8.6-10.3); Carbon Dioxide 28 mEq/L (23-29); Chloride 104 mEq/L (98-107); Glucose 124 mg/dL (70-105); Osmolality,Calculated 293 (280-300); Sodium 140 mEq/L (136-145); eGFR For African Americans > 60 (> 60); eGFR For Non-African Americans > 60 (> 60)
[2021-01-09 15:06] LABS: Prothrombin Time 11.3 Seconds (9.4-12.1)
[2021-01-09 15:37] LABS: Alanine Aminotransferase 7 Units/L (7-52); Albumin 4.3 g/dL (3.5-5.7); Albumin/Globulin Ratio 1.5 (1.1-2.2); Alkaline Phosphatase 110 Units/L (34-104); Aspartate Amino Transferase 15 Units/L (13-39); Bilirubin,Direct 0.2 mg/dL (0.0-0.2); Bilirubin,Indirect 0.9 mg/dL (0.0-1.0); Bilirubin,Total 1.1 mg/dL (0.3-1.0); Globulin 2.9 g/dL (2.4-3.5); Lipase 22 Units/L (11-82); Total Protein 7.2 g/dL (6.4-8.9)
[2021-01-09 16:20] LABS: Troponin I 0.04 ng/mL (< 0.04)
[2021-01-09 17:15] LABS: Bilirubin,Urine Negative (Negative); Blood,Urine Negative (Negative); Clarity,Urine Clear (Clear); Color,Urine Light-Yellow (Yellow); Glucose,Urine (UA) Normal (Normal); Ketones,Urine Negative (Negative); Leukocyte Esterase,Urine Negative (Negative); Nitrite,Urine Negative (Negative); Protein,Urine Trace mg/dL (Neg-Trace); Specific Gravity,Urine > 1.030 (1.010-1.025)
[2021-01-09] MEDS ORDERED: *HR* LORazepam 2 MG/ML VIAL IVP ONE (17:29)
[2021-01-09] MEDS ORDERED: Ondansetron 4 MG/2 ML VIAL IVP PRN (17:37)
[2021-01-09] MEDS ORDERED: Naloxone 0.4 MG/ML INJ IVP PRN (17:37)
[2021-01-09] MEDS ORDERED: Saliva Stimulant 44.3ml BOTTLE PO PRN (17:39)
[2021-01-09] MEDS ORDERED: Dextrose Gel 15 GM/37.5 ML TUBE PO PRN ×2 (17:40)
[2021-01-09] MEDS ORDERED: *HR* Dextrose 50 % in Water (Vial) 50 ML VIAL IVP PRN (17:40)
[2021-01-09] MEDS ORDERED: D5% in Water 1,000 ML IVC PRN (17:40)
[2021-01-09] MEDS ORDERED: Ipratropium/Albuterol Neb 3 ML IH PRN (17:56)
[2021-01-09] MEDS ORDERED: Acetaminophen IV 1,000 MG/100 ML BAG IVPB SCH (18:00)
[2021-01-09 18:51] LABS: Troponin I < 0.03 ng/mL (< 0.04)
[2021-01-09 19:14] LABS: C-Reactive Protein 36 mg/L (Less than 10)
[2021-01-09] MEDS: levoFLOXacin 750 MG/150 ML 750 MG/150 ML BAG IVPB SCH (19:22)
[2021-01-09] MEDS: *HR* Heparin 5,000 UNIT/ML VIAL SQ SCH (19:22)
[2021-01-09] MEDS: MetroNIDAZOLE 500 MG/100 ML 500 MG/100 ML BAG IVPB SCH (19:22)
[2021-01-10] MEDS: 0.9 % Sodium Chloride 500 ML IVC SCH ×6 (00:04→21:19)
[2021-01-10] MEDS: MetroNIDAZOLE 500 MG/100 ML 500 MG/100 ML BAG IVPB SCH ×5 (00:05→23:44)
[2021-01-10] MEDS: Acetaminophen IV 1,000 MG/100 ML BAG IVPB SCH ×5 (00:06→23:45)
[2021-01-10 02:20] LABS: Basophils % 0.5 %; Eosinophils # 0.2 K/mcL (0.0-0.6); Eosinophils % 2.5 %; Hematocrit 48.3 % (35.3-44.9); Immature Granulocytes % 0.3 % (0-4); Lymphocytes # 1.6 K/mcL (0.6-4.6); Lymphocytes % 20.6 %; Mean Corpuscular HGB Conc 31.5 g/dL (31.6-35.5); Mean Corpuscular Hemoglobin 29.9 pg (28.0-33.3); Mean Corpuscular Volume 94.9 fL (83.0-100.0); Mean Platelet Volume 10.8 fL (9.4-12.4); Monocytes % 12.9 %; Neutrophils # 4.9 K/mcL (1.6-8.9); Platelet Count 222 K/mcL (140-400); Red Blood Count 5.09 M/mcL (3.82-4.97); Red Cell Distribution Width 12.8 % (11.5-14.5); Segmented Neutrophils % 63.2 %; White Blood Count 7.7 K/mcL (4.3-11.1)
[2021-01-10 02:24] LABS: Hemoglobin 15.2 g/dL (11.5-15.4)
[2021-01-10 02:36] LABS: Alanine Aminotransferase 8 Units/L (7-52); Albumin 3.3 g/dL (3.5-5.7); Albumin/Globulin Ratio 1.4 (1.1-2.2); Alkaline Phosphatase 85 Units/L (34-104); Aspartate Amino Transferase 14 Units/L (13-39); BUN/Creatinine Ratio 21 (6-26); Bilirubin,Total 1.2 mg/dL (0.3-1.0); Blood Urea Nitrogen 15 mg/dL (8-23); Calcium 8.5 mg/dL (8.6-10.3); Carbon Dioxide 25 mEq/L (23-29); Chloride 108 mEq/L (98-107); Globulin 2.4 g/dL (2.4-3.5); Glucose 92 mg/dL (70-105); Magnesium 1.8 mg/dL (1.6-2.6); Osmolality,Calculated 290 (280-300); Phosphorous 2.7 mg/dL (2.7-4.5); Potassium 4.2 mEq/L (3.5-5.1); Sodium 140 mEq/L (136-145); Total Protein 5.7 g/dL (6.4-8.9); eGFR For African Americans > 60 (> 60); eGFR For Non-African Americans > 60 (> 60)
[2021-01-10] MEDS: *HR* Heparin 5,000 UNIT/ML VIAL SQ SCH ×2 (06:16→19:09)
[2021-01-10] MEDS ORDERED: Chloraseptic Spray 177 ML BOTTLE MM PRN ×2 (09:16→09:48)
[2021-01-10] MEDS ORDERED: Lidocaine -MPF 1% 5 ML AMPUL INFILT ONE (10:09)
[2021-01-10] MEDS ORDERED: D10% in Water 500 ML IVC PRN (13:09)
[2021-01-10] MEDS: Nicotine 21 MG PATCH.TD24 TD SCH (14:41)
[2021-01-10] MEDS: *HR* LORazepam 2 MG/ML VIAL IVP PRN (15:03)
[2021-01-10] MEDS ORDERED: Ipratropium/Albuterol Neb 3 ML IH PRN (15:28)
[2021-01-10] MEDS ORDERED: MethylPREDNISolone 40 MG/ML VIAL IVP SCH (15:30)
[2021-01-10] MEDS ORDERED: Clinimix E 5%-15% SOLUTION 2,000 ML with MVI, adult with vitamin K 10 ML IVC SCH (17:00)
[2021-01-10] MEDS: Ipratropium/Albuterol Neb 3 ML IH SCH ×2 (17:08→22:07)
[2021-01-10] MEDS: levoFLOXacin 750 MG/150 ML 750 MG/150 ML BAG IVPB SCH (17:40)
[2021-01-10] MEDS: 0.9 % Sodium Chloride 1,000 ML IVC SCH (18:05)
[2021-01-10] MEDS: MethylPREDNISolone 40 MG/ML VIAL IVP SCH (19:13)
[2021-01-10] MEDS ORDERED: Calcium Gluconate 1gm/50mL 1 GM/50 ML BAG IVPB SCH (20:30)
[2021-01-10] MEDS: Calcium Gluconate 1gm/50mL 1 GM/50 ML BAG IVPB SCH ×2 (21:19→21:20)
[2021-01-10] MEDS: Budesonide/Formoterol 160/4.5 1 PUFF INH IH SCH (22:07)
[2021-01-11] MEDS: 0.9 % Sodium Chloride 1,000 ML IVC SCH (03:14)
[2021-01-11 03:18] LABS: Basophils % 0.4 %; Eosinophils % 0.2 %; Hematocrit 46.8 % (35.3-44.9); Hemoglobin 15.1 g/dL (11.5-15.4); Immature Granulocytes % 0.5 % (0-4); Lymphocytes # 0.7 K/mcL (0.6-4.6); Lymphocytes % 12.6 %; Mean Corpuscular HGB Conc 32.3 g/dL (31.6-35.5); Mean Corpuscular Hemoglobin 29.8 pg (28.0-33.3); Mean Corpuscular Volume 92.5 fL (83.0-100.0); Monocytes # 0.1 K/mcL (0.0-1.3); Monocytes % 1.3 %; Neutrophils # 4.7 K/mcL (1.6-8.9); Platelet Count 210 K/mcL (140-400); Red Blood Count 5.06 M/mcL (3.82-4.97); Red Cell Distribution Width 12.4 % (11.5-14.5); White Blood Count 5.6 K/mcL (4.3-11.1)
[2021-01-11 03:37] LABS: BUN/Creatinine Ratio 19 (6-26); Blood Urea Nitrogen 14 mg/dL (8-23); Calcium 8.7 mg/dL (8.6-10.3); Carbon Dioxide 24 mEq/L (23-29); Chloride 105 mEq/L (98-107); Glucose 178 mg/dL (70-105); Magnesium 1.8 mg/dL (1.6-2.6); Osmolality,Calculated 287 (280-300); Phosphorous 2.9 mg/dL (2.7-4.5); Potassium 3.7 mEq/L (3.5-5.1); Sodium 136 mEq/L (136-145); Triglycerides 162 mg/dL (< 150); eGFR For African Americans > 60 (> 60); eGFR For Non-African Americans > 60 (> 60)
[2021-01-11] MEDS: Ipratropium/Albuterol Neb 3 ML IH SCH ×4 (04:06→22:31)
[2021-01-11] MEDS: *HR* Heparin 5,000 UNIT/ML VIAL SQ SCH ×2 (05:17→17:39)
[2021-01-11] MEDS: MethylPREDNISolone 40 MG/ML VIAL IVP SCH (08:41)
[2021-01-11] MEDS: levoFLOXacin 750 MG/150 ML 750 MG/150 ML BAG IVPB SCH (08:43)
[2021-01-11] MEDS: Budesonide/Formoterol 160/4.5 1 PUFF INH IH SCH ×2 (09:03→22:31)
[2021-01-11] MEDS: Acetaminophen IV 1,000 MG/100 ML BAG IVPB SCH ×3 (10:03→23:12)
[2021-01-11] MEDS: MetroNIDAZOLE 500 MG/100 ML 500 MG/100 ML BAG IVPB SCH ×3 (10:04→23:53)
[2021-01-11] MEDS: Nicotine 21 MG PATCH.TD24 TD SCH (10:09)
[2021-01-11] MEDS: *HR* LORazepam 2 MG/ML VIAL IVP PRN (13:12)
[2021-01-11] MEDS ORDERED: MetroNIDAZOLE 500 MG/100 ML 500 MG/100 ML BAG IVPB SCH (17:00)
[2021-01-11] MEDS ORDERED: Clinimix E 5%-15% SOLUTION 2,000 ML with MVI, adult with vitamin K 10 ML IVC SCH (17:00)
[2021-01-12] MEDS: *HR* LORazepam 2 MG/ML VIAL IVP PRN (03:05)
[2021-01-12 03:15] LABS: Basophils % 0.5 %; Eosinophils # 0.1 K/mcL (0.0-0.6); Eosinophils % 1.4 %; Hematocrit 42.4 % (35.3-44.9); Hemoglobin 13.7 g/dL (11.5-15.4); Immature Granulocytes % 0.6 % (0-4); Mean Corpuscular HGB Conc 32.3 g/dL (31.6-35.5); Mean Corpuscular Hemoglobin 29.5 pg (28.0-33.3); Mean Corpuscular Volume 91.4 fL (83.0-100.0); Mean Platelet Volume 9.8 fL (9.4-12.4); Monocytes # 0.7 K/mcL (0.0-1.3); Monocytes % 8.2 %; Neutrophils # 5.4 K/mcL (1.6-8.9); Nucleated Red Blood Cells 0.2 /100 WBC (0); Platelet Count 201 K/mcL (140-400); Red Blood Count 4.64 M/mcL (3.82-4.97); Red Cell Distribution Width 12.6 % (11.5-14.5); Segmented Neutrophils % 65.3 %; White Blood Count 8.3 K/mcL (4.3-11.1)
[2021-01-12 03:37] LABS: BUN/Creatinine Ratio 19 (6-26); Blood Urea Nitrogen 14 mg/dL (8-23); Calcium 8.9 mg/dL (8.6-10.3); Carbon Dioxide 24 mEq/L (23-29); Chloride 108 mEq/L (98-107); Glucose 113 mg/dL (70-105); Magnesium 1.7 mg/dL (1.6-2.6); Osmolality,Calculated 291 (280-300); Phosphorous 2.4 mg/dL (2.7-4.5); Potassium 3.4 mEq/L (3.5-5.1); Sodium 140 mEq/L (136-145); eGFR For African Americans > 60 (> 60); eGFR For Non-African Americans > 60 (> 60)
[2021-01-12] MEDS: Ipratropium/Albuterol Neb 3 ML IH SCH ×4 (04:02→22:33)
[2021-01-12] MEDS: *HR* Heparin 5,000 UNIT/ML VIAL SQ SCH ×2 (05:04→17:17)
[2021-01-12] MEDS: Nicotine 21 MG PATCH.TD24 TD SCH (07:57)
[2021-01-12] MEDS ORDERED: Potassium Phosphate 44 MEQ in 0.9 % Sodium Chloride 250 ML IVPB ONE (08:01)
[2021-01-12] MEDS: MethylPREDNISolone 40 MG/ML VIAL IVP SCH (08:09)
[2021-01-12] MEDS: levoFLOXacin 750 MG/150 ML 750 MG/150 ML BAG IVPB SCH (08:10)
[2021-01-12] MEDS: MetroNIDAZOLE 500 MG/100 ML 500 MG/100 ML BAG IVPB SCH ×2 (08:11→15:42)
[2021-01-12] MEDS: Acetaminophen IV 1,000 MG/100 ML BAG IVPB SCH ×3 (08:13→23:31)
[2021-01-12] MEDS: Budesonide/Formoterol 160/4.5 1 PUFF INH IH SCH ×2 (10:01→22:33)
[2021-01-12 11:22] LABS: Saccharomyces cerevisiae IgA 7.9 Units (0.0-24.9)
[2021-01-12] MEDS: *HR* LORazepam 2 MG/ML VIAL IVP SCH ×2 (13:05→20:30)
[2021-01-12] MEDS ORDERED: Clinimix E 5%-15% SOLUTION 2,000 ML with MVI, adult with vitamin K 10 ML IVC SCH (17:00)
[2021-01-13] MEDS: MetroNIDAZOLE 500 MG/100 ML 500 MG/100 ML BAG IVPB SCH ×3 (00:18→15:03)
[2021-01-13] MEDS: Ipratropium/Albuterol Neb 3 ML IH SCH (04:38)
[2021-01-13 04:41] LABS: Basophils # 0.1 K/mcL (0.0-0.2); Basophils % 0.6 %; Eosinophils # 0.1 K/mcL (0.0-0.6); Eosinophils % 0.8 %; Hematocrit 41.6 % (35.3-44.9); Hemoglobin 13.4 g/dL (11.5-15.4); Immature Granulocytes % 0.7 % (0-4); Lymphocytes # 2.1 K/mcL (0.6-4.6); Lymphocytes % 23.8 %; Mean Corpuscular HGB Conc 32.2 g/dL (31.6-35.5); Mean Corpuscular Hemoglobin 29.6 pg (28.0-33.3); Mean Corpuscular Volume 91.8 fL (83.0-100.0); Mean Platelet Volume 10.6 fL (9.4-12.4); Monocytes # 0.9 K/mcL (0.0-1.3); Monocytes % 10.3 %; Neutrophils # 5.6 K/mcL (1.6-8.9); Platelet Count 202 K/mcL (140-400); Red Blood Count 4.53 M/mcL (3.82-4.97); Red Cell Distribution Width 12.9 % (11.5-14.5); Segmented Neutrophils % 63.8 %; White Blood Count 8.7 K/mcL (4.3-11.1)
[2021-01-13] MEDS: *HR* LORazepam 2 MG/ML VIAL IVP SCH ×2 (04:55→12:43)
[2021-01-13 05:03] LABS: BUN/Creatinine Ratio 26 (6-26); Blood Urea Nitrogen 18 mg/dL (8-23); Calcium 8.7 mg/dL (8.6-10.3); Carbon Dioxide 27 mEq/L (23-29); Chloride 107 mEq/L (98-107); Glucose 112 mg/dL (70-105); Osmolality,Calculated 291 (280-300); Phosphorous 2.9 mg/dL (2.7-4.5); Potassium 3.6 mEq/L (3.5-5.1); Sodium 139 mEq/L (136-145); eGFR For African Americans > 60 (> 60); eGFR For Non-African Americans > 60 (> 60)
[2021-01-13] MEDS: *HR* Heparin 5,000 UNIT/ML VIAL SQ SCH (05:45)
[2021-01-13] MEDS: Acetaminophen IV 1,000 MG/100 ML BAG IVPB SCH (08:07)
[2021-01-13] MEDS: Nicotine 21 MG PATCH.TD24 TD SCH (08:11)
[2021-01-13] MEDS: levoFLOXacin 750 MG/150 ML 750 MG/150 ML BAG IVPB SCH (08:11)
[2021-01-13] MEDS: MethylPREDNISolone 40 MG/ML VIAL IVP SCH (08:11)
[2021-01-13 10:47] VITALS: BP 136/65; PULSE 69; TEMP 98
[2021-01-13] MEDS: Budesonide/Formoterol 160/4.5 1 PUFF INH IH SCH (11:42)
[2021-01-13 11:58] VITALS: O2SAT 96
== END 2021-01-13 15:55 | disposition home health service (06) | DRG 390 ==
LOC: SUATTDRO → EMEROOARM 12:45 → 3ANU 12:45 → SUATTDRO 19:25 → 3ANU 20:40
PROVIDERS: ADMIT Internal Medicine; ATTEND Internal Medicine

== ENCOUNTER 2021-09-05 15:17 | Observation (INO) ==
[2021-09-05] MEDS ORDERED: Ondansetron 4 MG/2 ML VIAL IVP ONE (16:12)
[2021-09-05] MEDS ORDERED: Isovue-370 500 ML BOTTLE IVP ONE (16:12)
[2021-09-05] MEDS ORDERED: 0.9 % Sodium Chloride 1,000 ML IVC ONE (16:13)
[2021-09-05 16:57] LABS: Bacteria,Urine Few per hpf (None-Few); Bilirubin,Urine Small (Negative); Blood,Urine Negative (Negative); Clarity,Urine Ex.Turbid (Clear); Color,Urine Yellow (Yellow); Glucose,Urine (UA) Normal (Normal); Hyaline Casts,Urine Moderate per lpf (None Seen); Ketones,Urine Negative (Negative); Leukocyte Esterase,Urine Negative (Negative); Mucus,Urine Few per lpf (None-Few); Nitrite,Urine Positive (Negative); Protein,Urine 100 mg/dL (Neg-Trace); RBC,Urine 0-3 per hpf (0-3); Specific Gravity,Urine > 1.030 (1.010-1.025); Squamous Epithelial Cell,Urine Many per hpf (None-Few)
[2021-09-05 17:52] LABS: Basophils % 0.3 %; Eosinophils # 0.1 K/mcL (0.0-0.6); Eosinophils % 0.6 %; Hematocrit 50.7 % (35.3-44.9); Hemoglobin 16.9 g/dL (11.5-15.4); Immature Granulocytes % 0.3 % (0-4); Lymphocytes # 1.5 K/mcL (0.6-4.6); Lymphocytes % 11.9 %; Mean Corpuscular HGB Conc 33.3 g/dL (31.6-35.5); Mean Corpuscular Hemoglobin 31.1 pg (28.0-33.3); Mean Corpuscular Volume 93.4 fL (83.0-100.0); Monocytes # 1.2 K/mcL (0.0-1.3); Monocytes % 9.4 %; Neutrophils # 9.7 K/mcL (1.6-8.9); Platelet Count 249 K/mcL (140-400); Red Blood Count 5.43 M/mcL (3.82-4.97); Segmented Neutrophils % 77.5 %; White Blood Count 12.5 K/mcL (4.3-11.1)
[2021-09-05 18:11] LABS: Alanine Aminotransferase 7 Units/L (7-52); Albumin 3.6 g/dL (3.5-5.7); Albumin/Globulin Ratio 1.3 (1.1-2.2); Alkaline Phosphatase 92 Units/L (34-104); Aspartate Amino Transferase 11 Units/L (13-39); BUN/Creatinine Ratio 23 (6-26); Bilirubin,Total 1.4 mg/dL (0.3-1.0); Blood Urea Nitrogen 19 mg/dL (8-23); Calcium 8.7 mg/dL (8.6-10.3); Carbon Dioxide 29 mEq/L (23-29); Chloride 107 mEq/L (98-107); Globulin 2.7 g/dL (2.4-3.5); Glucose 101 mg/dL (70-105); Lipase 24 Units/L (11-82); Osmolality,Calculated 294 (280-300); Potassium 4.3 mEq/L (3.5-5.1); Sodium 141 mEq/L (136-145); Total Protein 6.3 g/dL (6.4-8.9); eGFR For African Americans > 60 (> 60); eGFR For Non-African Americans > 60 (> 60)
[2021-09-05] MEDS ORDERED: MetroNIDAZOLE 500 MG/100 ML 500 MG/100 ML BAG IVPB ONE (19:49)
[2021-09-05] MEDS ORDERED: Melatonin 3 MG TABLET PO PRN (20:32)
[2021-09-05] MEDS ORDERED: Naloxone 0.4 MG/ML INJ IVP PRN (20:32)
[2021-09-05] MEDS ORDERED: Ondansetron 4 MG/2 ML VIAL IVP PRN (20:32)
[2021-09-05] MEDS ORDERED: Acetaminophen 325 MG TABLET PO PRN (20:32)
[2021-09-05] MEDS ORDERED: D5% in Water 1,000 ML IVC PRN (22:18)
[2021-09-05] MEDS ORDERED: *HR* Dextrose 50 % in Water (Syg) 50 ML SYRINGE IVP PRN (22:18)
[2021-09-05] MEDS ORDERED: Saliva Stimulant 44.3ml BOTTLE PO PRN (22:18)
[2021-09-05] MEDS ORDERED: Dextrose 4 GM Chewable Tablets PO PRN ×2 (22:18)
[2021-09-05] MEDS ORDERED: Morphine Sulfate 2 MG/ML SYRINGE IVP ONE (22:18)
[2021-09-05] MEDS ORDERED: *HR* LORazepam 2 MG/ML VIAL IVP PRN (22:19)
[2021-09-06] MEDS: 0.9 % Sodium Chloride 1,000 ML IVC SCH ×2 (00:45→15:18)
[2021-09-06] MEDS: Acetaminophen IV 1,000 MG/100 ML BAG IVPB SCH ×4 (00:45→22:56)
[2021-09-06] MEDS: Budesonide/Formoterol 160/4.5 1 PUFF INH IH SCH ×3 (00:46→20:10)
[2021-09-06] MEDS: Ipratropium/Albuterol Neb 3 ML IH SCH ×5 (00:46→20:10)
[2021-09-06 04:57] LABS: Basophils # 0.1 K/mcL (0.0-0.2); Basophils % 0.5 %; Eosinophils # 0.1 K/mcL (0.0-0.6); Eosinophils % 1.4 %; Hematocrit 46.4 % (35.3-44.9); Immature Granulocytes % 0.3 % (0-4); Lymphocytes # 2.7 K/mcL (0.6-4.6); Lymphocytes % 27.1 %; Mean Corpuscular HGB Conc 32.8 g/dL (31.6-35.5); Mean Corpuscular Hemoglobin 30.8 pg (28.0-33.3); Mean Corpuscular Volume 94.1 fL (83.0-100.0); Mean Platelet Volume 10.3 fL (9.4-12.4); Monocytes % 9.5 %; Neutrophils # 6.1 K/mcL (1.6-8.9); Platelet Count 216 K/mcL (140-400); Red Blood Count 4.93 M/mcL (3.82-4.97); Segmented Neutrophils % 61.2 %
[2021-09-06] MEDS: *HR* Enoxaparin 40 MG/0.4 ML SYRINGE SQ SCH (04:58)
[2021-09-06] MEDS: MetroNIDAZOLE 500 MG/100 ML 500 MG/100 ML BAG IVPB SCH ×3 (04:58→20:47)
[2021-09-06 05:01] LABS: Hemoglobin 15.2 g/dL (11.5-15.4)
[2021-09-06 05:06] LABS: INR 1.1
[2021-09-06 05:09] LABS: Activated Partial Thrombo Time 32.1 Seconds (26.0-36.0)
[2021-09-06 05:21] LABS: BUN/Creatinine Ratio 25 (6-26); Blood Urea Nitrogen 19 mg/dL (8-23); Calcium 8.4 mg/dL (8.6-10.3); Carbon Dioxide 24 mEq/L (23-29); Chloride 109 mEq/L (98-107); Glucose 112 mg/dL (70-105); Magnesium 1.9 mg/dL (1.6-2.6); Osmolality,Calculated 293 (280-300); Phosphorous 2.7 mg/dL (2.7-4.5); Potassium 3.4 mEq/L (3.5-5.1); Sodium 140 mEq/L (136-145); eGFR For African Americans > 60 (> 60); eGFR For Non-African Americans > 60 (> 60)
[2021-09-06 05:22] LABS: % Iron Saturation 44 % (15-50); Iron 99 mcg/dL (50-170); Transferrin 159 mg/dL (203-362)
[2021-09-06 05:30] LABS: C-Reactive Protein 27 mg/L (Less than 10)
[2021-09-06 05:41] LABS: Ferritin 162 ng/mL (10-120)
[2021-09-06 05:46] LABS: Folate 14.4 ng/mL (3.0-16.0)
[2021-09-06] MEDS: Nicotine 21 MG PATCH.TD24 TD SCH (08:23)
[2021-09-06] MEDS: Chlorhexidine Rinse 15 ML MOUTHWASH MM SCH ×2 (08:23→20:46)
[2021-09-06] MEDS: Pantoprazole 40 MG VIAL IVP SCH (08:23)
[2021-09-06] MEDS: Cyanocobalamin (B-12) 1,000 MCG/ML VIAL SQ SCH (15:17)
[2021-09-06] MEDS: Gabapentin 400 MG CAPSULE PO SCH ×2 (15:17→20:47)
[2021-09-06] MEDS: Venlafaxine XR (24 HR) 37.5 MG CAP.ER.24H PO SCH (20:47)
[2021-09-07 01:43] LABS: Basophils % 0.6 %; Eosinophils # 0.2 K/mcL (0.0-0.6); Eosinophils % 3.3 %; Hematocrit 38.6 % (35.3-44.9); Immature Granulocytes % 0.3 % (0-4); Lymphocytes % 31.2 %; Mean Corpuscular HGB Conc 33.2 g/dL (31.6-35.5); Mean Corpuscular Hemoglobin 31.1 pg (28.0-33.3); Mean Corpuscular Volume 93.9 fL (83.0-100.0); Mean Platelet Volume 10.8 fL (9.4-12.4); Monocytes # 0.6 K/mcL (0.0-1.3); Monocytes % 9.9 %; Neutrophils # 3.4 K/mcL (1.6-8.9); Platelet Count 204 K/mcL (140-400); Red Blood Count 4.11 M/mcL (3.82-4.97); Red Cell Distribution Width 13.1 % (11.5-14.5); Segmented Neutrophils % 54.7 %; White Blood Count 6.3 K/mcL (4.3-11.1)
[2021-09-07 01:46] LABS: Hemoglobin 12.8 g/dL (11.5-15.4)
[2021-09-07 01:58] LABS: BUN/Creatinine Ratio 20 (6-26); Blood Urea Nitrogen 13 mg/dL (8-23); Calcium 8.1 mg/dL (8.6-10.3); Carbon Dioxide 21 mEq/L (23-29); Chloride 110 mEq/L (98-107); Glucose 78 mg/dL (70-105); Magnesium 1.7 mg/dL (1.6-2.6); Osmolality,Calculated 287 (280-300); Phosphorous 2.5 mg/dL (2.7-4.5); Potassium 3.3 mEq/L (3.5-5.1); Sodium 139 mEq/L (136-145); eGFR For African Americans > 60 (> 60); eGFR For Non-African Americans > 60 (> 60)
[2021-09-07] MEDS: MetroNIDAZOLE 500 MG/100 ML 500 MG/100 ML BAG IVPB SCH (04:08)
[2021-09-07] MEDS: Ipratropium/Albuterol Neb 3 ML IH SCH ×2 (04:21→08:05)
[2021-09-07] MEDS: *HR* Enoxaparin 40 MG/0.4 ML SYRINGE SQ SCH (05:41)
[2021-09-07] MEDS ORDERED: Potassium Chloride Elixir 20 MEQ/15 ML UDC PO ONE (07:21)
[2021-09-07] MEDS: Acetaminophen IV 1,000 MG/100 ML BAG IVPB SCH (07:49)
[2021-09-07] MEDS: Chlorhexidine Rinse 15 ML MOUTHWASH MM SCH (07:50)
[2021-09-07] MEDS: Gabapentin 400 MG CAPSULE PO SCH (07:50)
[2021-09-07] MEDS: Cyanocobalamin (B-12) 1,000 MCG/ML VIAL SQ SCH (07:50)
[2021-09-07] MEDS: Venlafaxine XR (24 HR) 37.5 MG CAP.ER.24H PO SCH (07:50)
[2021-09-07] MEDS: Pantoprazole 40 MG VIAL IVP SCH (07:50)
[2021-09-07] MEDS: Nicotine 21 MG PATCH.TD24 TD SCH (07:53)
[2021-09-07] MEDS: Budesonide/Formoterol 160/4.5 1 PUFF INH IH SCH (08:05)
[2021-09-07 08:10] VITALS: BP 121/60; PULSE 80; TEMP 97.9; O2SAT 95
[2021-09-07] MEDS ORDERED: Aspirin Enteric Coated 81 MG Tablet PO SCH (09:00)
== END 2021-09-07 11:53 | disposition home or self-care (01) ==
LOC: SUATTDRO → 3ANU 15:17 → EMEROOARM 15:17 → 3ANU 21:19
PROVIDERS: ADMIT Internal Medicine; ATTEND Internal Medicine